=== PATIENT | male | born 1940 | race African-American/Black ===

== ENCOUNTER 2017-09-20 12:32 | Inpatient (IN) | payer MEDICARE, SELFPAY ==
[2017-09-20] VITALS (18 sets, daily range): BP systolic 93–147; BP diastolic 62–99; PULSE 78–95; RESP 13–19; TEMP 36.4–36.6; O2SAT 96–100; BMI 25.3; BMI 24.6
--- NOTE | 2017-09-20 12:45 | RAD_ITS ---
STUDY: X-RAY CHEST REASON FOR EXAM: Male, 77 years old. Shortness of breath with confusion. TECHNIQUE: AP upright portable view. COMPARISON: 11/30/2016. FINDINGS: New right IJ approach [id number] tip is in the SVC but it is retracted superiorly. No pneumothorax. Pulmonary hyperinflation with flattening of the hemidiaphragms are suggestive of mild COPD. No confluent infiltrates. No suspicious pulmonary nodules. There is no demonstrated pleural abnormality. Normal size heart. Normal mediastinum and malick. Normal visualized pulmonary arteries. Normal visualized aortic arch and descending thoracic aorta. Right lateral marginal spurs along the thoracic spine are unchanged. 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 The clavicles and rib cage remain normal. There is no demonstrated abnormality of the visualized soft tissue structures of the upper abdomen. RAD/Chest 1 View (Portable) IMPRESSION: 1. No acute cardiopulmonary pathology. 2. Interval placement of right IJ approach [id number] which has retracted cephalad. The tip is still in the SVC but close to the right subclavian vein. Electronically Signed: Vic Tavares MD at 13:36 EDT , Service support ,
--- NOTE | 2017-09-20 12:45 | CT_ITS ---
STUDY: CT BRAIN WITHOUT CONTRAST REASON FOR EXAM: Male, 77 years old. Confusion. Elevated glucose. RADIATION DOSAGE (If Supplied By Facility): CTDIvol = ( 44.99 ) mGy, DLP = ( 745.49 ) mGycm TECHNIQUE: Transaxial CT imaging of the brain was performed without administration of intravenous contrast material. Coronal and sagittal reconstructions were performed. Individualized dose optimization techniques were used for this CT. COMPARISON: None. FINDINGS: Normal soft tissue structures. Normal calvarium. Normal size ventricles and extra-axial spaces for the patient's age. Normal white matter tracts of the cerebral hemispheres. Normal basal ganglia and thalami. Normal brainstem. Normal cerebellum. There is no intracranial hemorrhage. There are no findings of an acute ischemic infarction. Normal visualized paranasal sinuses. CT/Brain/Head without Contrast IMPRESSION: Normal unenhanced CT scan of the brain. Electronically Signed: Vic Tavares MD at 13:39 EDT , Service support ,
--- NOTE | 2017-09-20 12:45 | EKG12_ITS ---
Test Reason : DYSRHYTHMIAA Blood Pressure : / mmHG Vent. Rate : 096 BPM Atrial Rate : 096 BPM P-R Int : 106 ms QRS Dur : 084 ms QT Int : 352 ms P-R-T Axes : 060 062 016 degrees QTc Int : 444 ms Sinus rhythm with short [place] Otherwise normal ECG Confirmed by VERONICA MUÑOZ, CHERIE ([id number]), image editor VIOLETA AVALOS ([id number]) on 09/22/2017 2:08:52 PM Referred By: HEIDI Confirmed By:CHERIE MARTIN MD
--- NOTE | 2017-09-20 12:59 | ED.VISSUMM ---
- ER Visit Summary Date of Service: 09/20/17 Chief Complaint: [] Fatigue and confusion decreased p.o. 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 They report for the last few days she has had decreased p.o. intake he seemed confused and tired yesterday nothing specific, no chest pain fever cough, he woke today was going about his daily activity seemed tired and confused did not recognize his daughter thought she was another relative and he was brought to the hospital, the patient's had no fever no fall no injury no chest or abdominal pain he is resting comfortably in the bed he knows his name he knows he is in the emergency department he does not recognize the city, he recognizes the doctors and the nurses he recognizes his daughter he does not know the date or the time and per the daughter this is about baseline for him he clearly has a dry mouth his blood sugar was found to be 450 on initial eval he has no history of diabetes but his blood sugars have run high in the past, he is neurologically at his baseline currently Physical Examination: [] His vital signs are within normal range she is in no distress again his speech is easy to understand he is oriented as above his neck is supple his lungs sound clear his heart tones are regular he has a port in the right chest but does not wish for us to use it is abdomen soft nontender he is moving all 4 extremities the extremities show no sinus clubbing or edema, again he knows he is in the emergency department he did not recognize the city or the date or the time he recognizes the daughter he recognizes the medical personnel he indicates he was not sick in any way just tired his NIH given that would be about 0 Test Results: [] Emergency Department Course and Treatment: [] Given all of the above a comprehensive evaluations pursued His blood sugars about 800 his gap is 14 trace ketones sodium [address] CT EKG generally unremarkable see those reports, he is received IV fluids IV insulin spoke the hospitalist though by to see him shortly for admission discussed all the above with the family Treatment Plan: [] Disposition: [] Admit stable Impression: [] Diabetes mellitus with hyperosmolar state, AK I, hyponatremia, confusion and fatigue This note was generated with Gameyee[employer]ation software. It may contain incorrect words, spelling, and punctuation that were not noted in review of the chart prior to signing ED Disposition - Plan for ED Patient: Chief Complaint: Confusion Referrals: Care Physician,No Primary [Primary Care Provider] -
[2017-09-20 13:00] LABS: Absolute Lymphocyte Count 1.46 X10^3/ul (0.83-4.51); Absolute Neutrophil Count 2.5 X10^3/uL (2.0-7.7); Basophil# 0.04 X10^3/uL; Basophil% 0.8 % (0-1); Eosinophil# 0.05 X10^3/uL; Hematocrit 42.3 % (40-54); Hemoglobin 14.8 g/dl (13.0-16.5); Lymphocyte # 1.46 X10^3/ul (4.0); Lymphocyte % 30.4 % (19-41); Mean Corpuscular Volume 91.4 fL (80-94); Monocyte# 0.73 X10^3/uL; Monocyte% 15.2 % (0-10); Neutrophil # 2.51 X10^3/uL (2.7-7.7); Neutrophil % 52.4 % (47-70); Platelet Count 135 K/mm3 (150-450); RBC Distribution Width CV 14.1 % (11.6-14.6); RBC Distribution Width SD 46.9 fl (35.1-43.9); Red Blood Count 4.63 M/mm3 (4.6-6.2); White Blood Count 4.8 K/mm3 (4.4-11.0)
[2017-09-20 13:01] LABS: POSITIVE COUNT NO; POSITIVE DIFFERENTIAL NO; POSITIVE MORPHOLOGY NO
--- NOTE | 2017-09-20 13:21 | NURSING ---
NO LW OR POA
--- NOTE | 2017-09-20 13:28 | ED.RN ---
lab called critical of blood sugar 782. dr campbell
[2017-09-20 13:29] LABS: AST(SGOT) 11 U/L (15-37); Alanine Aminotransfer ALT/SGPT 22 U/L (16-61); Albumin, Serum 4.1 g/dL (3.2-5.0); Alkaline Phosphatase 274 U/L (45-117); Anion Gap 14 (5-15); BUN 48 mg/dL (7-18); BUN/Creat Ratio 30.8 RATIO (10-20); Bilirubin, Direct 0.15 mg/dL (0.00-0.30); Calcium,Total 9.9 mg/dL (8.5-10.1); Chloride 93 mmol/L (98-107); Creatinine, Serum 1.56 mg/dL (0.70-1.30); EST Glomerular Filtration Rate 46 mL/min (>60); Est Glom Filt Rate - Afr Amer 56 mL/min (>60); Estimated Creatinine Clearance 39.66 ml/min; Globulin 4.7 g/dL (2.2-4.2); Glucose 780 mg/dL (74-106); Lipase 151 U/L (73-393); Protein, Total 8.8 g/dL (6.4-8.2); Sodium Level 128 mmol/L (136-145)
[2017-09-20 13:53] LABS: Mucous, Urine 0 SEEN /hpf (<or=2+); Red Blood Cells-Urine 0 SEEN /hpf (0-5); White Blood Cells 0 SEEN /hpf (0-5)
[2017-09-20 13:54] LABS: Color, Urine Yellow (Yellow); Glucose, Dipstick 1000 mg/dl (Normal); Ketone-Dipstick 15 mg/dl (Negative); Leukocyte Esterase-Dipstick Negative /ul (Negative); Nitrite-Dipstick Negative (Negative); Occult Blood-Urine 25 /ul (Negative); Protein-Dipstick 30 mg/dl (Negative); Urine Bilirubin Dipstick Negative (Negative); Urine Clarity Clear (Clear); Urine Urobilinogen Normal (Normal)
--- NOTE | 2017-09-20 13:57 | PCM.HP.STD ---
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 Robin, Diabetes mellitus type II (HgbA1c 11/20/16 6.6%) who presents to the [facility] ED on 09/20/17 with decreased oral intake and confusion, worsening over the last 2-3 days with no recent fever, chills, nausea, emesis, dyspnea, cough. In the ED work-up included T 97.9, HR 93, BP 147/99, RR 18, 99% on RA, CBC w/ WBC 4.8, Hgb 14.8, Plts 135 with increased mono% otherwise no marked shift, CMP w/ Na 128, Chl 93, BUN/Cr 48/1.56, glucose 780, AG 14, trop <0.02, small acetone, CXR w/ no acute process, CT Head w/ no acute findings, UA pending. In the ED patient administered 2L NS secondary to immediately concerns of dehydration and with CMP results administered 10 u IV insulin and placed on drip. In the ED upon initial presentation per ED physician, patient orientation intact for person, place, certain staff members, but not date or city. Also, family noting that his BS have been elevated. Past Medical History Past Medical History (Chronic Problems): Chronic Problems Diabetes mellitus (Chronic) Hypertension (Chronic) Psoriasis (Chronic) Gallstone pancreatitis (Chronic) Gallbladder carcinoma (Chronic) Allergies No Known Allergies Allergy (Verified 09/20/17 12:37) Home Medications: Ambulatory Orders Medication Instructions Recorded Aspirin [Aspirin, Baby] 81 mg PO DAILY@0800 11/18/16 Carvedilol [Coreg] 12.5 mg PO BID 11/18/16 Clobetasol Propionate/Emoll 1 applic TP DAILY PRN PRN 11/18/16 [Clobetasol Emollient 0.05% Crm] Lisinopril [Zestril] 20 mg PO DAILY #0 12/01/16 Furosemide [Lasix] 40 mg PO DAILY #30 tablet 12/18/16 Ascorbic Acid [Vitamin C] 500 mg PO DAILY 01/29/17 Ferrous Sulfate [Slow Fe] 140 mg PO DAILY 02/21/17 Hydrocortisone 1% Crm 1 applicatio TOPICAL DAILY PRN PRN 02/21/17 Ketoconazole [Nizoral] 120 ml TP DAILY PRN 02/21/17 Ondansetron [Zofran Odt] 8 mg PO Q8H PRN PRN 02/21/17 Guaifenesin [Mucinex] 600 mg PO BID PRN PRN 03/09/17 Potassium Chloride 10 meq PO DAILY 03/09/17 Senna [Senokot] 1 tablet PO BID PRN PRN 03/09/17 Triamcinolone Acetonide 03/09/17 Polyethylene Glycol 3350 [Miralax] 17 gm PO DAILY #14 packet 03/10/17 Surgical History: - - Cholecystectomy, Port, Skin graft ankle. Psychiatric History: No pertinent psych hx Lives: Spouse/ Significant Other Smoking Status: Former smoker Tobacco Use: Non-smoker Alcohol: None Drugs: None - *Family History Maternal History Items: Heart Disease Paternal History Items: No pertinent history - Father when patient was 2. Review of Systems Constitutional: Reports: Anorexia, Malaise, Weakness, Fatigue. Denies: Chills, Fever, Weight Change HEENT: Denies: Head Aches, Sinus Congestion, Sinus Drainage Cardiovascular: Denies: Chest Pain, Palpitations Respiratory: Denies: Cough, Shortness of breath at rest, Sputum production Gastrointestinal: Reports: Nausea. Denies: Abdominal Pain, Vomiting Genitourinary: Reports: - - Decreased UOP. Denies: Dysuria Musculoskeletal: Denies: Joint Pain, Joint Tenderness Skin: Denies: Rash, Wounds Neurological: Reports: Confusion. Denies: Focal weakness, Numbness, Tingling Psychiatric: Denies: Anxiety, Depression, Homicidal Ideations, Suicidal Ideations Hematologic/ Lymphatic: Reports: Anemia. Denies: Easy Bruising, Easy Bleeding VTE Information - Inpt Only VTE Present on Admission: No VTE Mechan Device Prophylaxis: SCD's VTE Pharm Prophylaxis ordered?: Yes Patient Problems: Active and Suspected Problems BRIELLE (acute kidney injury) (Acute) Hyponatremia (Acute) Hyperglycemia (Acute) Subjective: Seated upright in the ED bed, NAD, fatigued appearing, clinically dry appearing. Objective: Physical Examination: General: awake, alert, oriented to self, place, certain individuals, cooperative, seated upright in the ED bed, NAD, fatigued appearing. Skin: dry, flaking skin, poor skin turgor, no icterus, cyanosis. HEENT: AT/NC, EOMI, PERRLA, dry MM, no carotid bruits or JVD noted. Lungs: Diminished BS bases, mild effort, no rales, ronchi or wheezing. Heart: Mildly tachycardic with regular rhythm; no gallop, rub audible. Abdomen: soft, thin cachectic habitus, NTTP, ND, hypoactive BS, no HSM. Extremities: no cyanosis, clubbing, notably dry skin, poor foot DM hygiene with thickened skin, thickened nails. Neurological: patient awake, alert, oriented as noted; cognitive function decreased, not baseline intact; pupils equally reactive to light and accomodation; cranial nerves II-XII grossly normal, moving all 4 extremities but moderately to severely globally decreased secondary to acute presentation. Psychiatric: affect appears moderately flat, fatigued, no acute evidence of depressive or anxiety feelings. - Physical Exam Vital Signs Temp Pulse Resp BP Pulse Ox 97.9 F 93 18 141/94 H 96 09/20/17 12:34 09/20/17 12:58 09/20/17 12:58 09/20/17 12:58 09/20/17 12:58 Oxygen Delivery Method Room Air Weight: 171 lb 8.314 oz Body Mass Index (BMI) 25.3 Laboratory Tests Past 24 Hrs 09/20/17 09/20/17 09/20/17 12:50 12:50 12:50 WBC 4.8 RBC 4.63 Hgb 14.8 Hct 42.3 MCV 91.4 MCH 32.0 MCHC 35.0 RDW 14.1 RDW Differential 46.9 H Plt Count 135 L MPV 11.0 Immature Gran % (Auto) 0.200 Neut % (Auto) 52.4 Lymph % (Auto) 30.4 Vance % (Auto) 15.2 H Eos % (Auto) 1.0 Baso % (Auto) 0.8 Absolute Neuts (auto) 2.5 Absolute Lymphs (auto) 1.46 Total Counted Not Reportable Sodium 128 L Potassium 5.0 Chloride 93 L Carbon Dioxide 21.0 Anion Gap 14 BUN 48 H Creatinine 1.56 H Estim Creat Clear Calc 39.66 Est GFR (MDRD) Af Amer 56 L Est GFR (MDRD) Non-Af 46 L BUN/Creatinine Ratio 30.8 H Glucose 780 H* Calcium 9.9 Total Bilirubin 0.60 Direct Bilirubin 0.15 AST 11 L ALT 22 Alkaline Phosphatase 274 H Troponin I < 0.02 Total Protein 8.8 H Albumin 4.1 Globulin 4.7 H Lipase 151 Urine Color Urine Clarity Urine pH Ur Specific [place] Urine Protein Urine Glucose (UA) Urine Ketones Urine Occult Blood Urine Nitrite Urine Bilirubin Urine Urobilinogen Ur Leukocyte Esterase Urine RBC Urine WBC Ur Squamous Epith Cells Urine Bacteria Urine Mucus Acetone Level SMALL H 09/20/17 13:45 WBC RBC Hgb Hct MCV MCH MCHC RDW RDW Differential Plt Count MPV Immature Gran % (Auto) Neut % (Auto) Lymph % (Auto) Vance % (Auto) Eos % (Auto) Baso % (Auto) Absolute Neuts (auto) Absolute Lymphs (auto) Total Counted Sodium Potassium Chloride Carbon Dioxide Anion Gap BUN Creatinine Estim Creat Clear Calc Est GFR (MDRD) Af Amer Est GFR (MDRD) Non-Af BUN/Creatinine Ratio Glucose Calcium Total Bilirubin Direct Bilirubin AST ALT Alkaline Phosphatase Troponin I Total Protein Albumin Globulin Lipase Urine Color Pending Urine Clarity Pending Urine pH Pending Ur Specific [place] Pending Urine Protein Pending Urine Glucose (UA) Pending Urine Ketones Pending Urine Occult Blood Pending Urine Nitrite Pending Urine Bilirubin Pending Urine Urobilinogen Pending Ur Leukocyte Esterase Pending Urine RBC Pending Urine WBC Pending Ur Squamous Epith Cells Pending Urine Bacteria Pending Urine Mucus Pending Acetone Level Assessment/Plan Active and Suspected Problems BRIELLE (acute kidney injury) (Acute) Hyponatremia (Acute) Hyperglycemia (Acute) The patient is a 77 y/o M w/ PMHx: HTN, Psoriasis, 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 Robin, Diabetes mellitus type II (HgbA1c 11/20/16 6.6%) who presents to the [facility] ED on 09/20/17 with decreased oral intake and confusion, worsening over the last 2-3 days with no recent fever, chills, nausea, emesis, dyspnea, cough. (1) Hyperglycemia w/ Diabetes Mellitus type II, possible Hyperosmolar Hyperglycemic State: Admission glucose 780, AG normal, small acetone level in the setting of dehydration w/ Na 128 and BRIELLE, UA pending, previously was on ISS and levemir w/ last noted HgbA1c 11/20/16 6.6%. Given IV insulin 10 u x 1 in the ED. Will admit to the ICU, continue to aggressively hydrate, obtain Serum Osm administer IV insulin and continue on insulin drip, check serial K+, glucose w/ IVF changes pending these levels, serial chemistry, obtain mag, phos daily w/ repletion as needed, transition to home SC regimen once improved, nutrition consultation. HgBA1c pending. (2) Acute kidney injury: Secondary to poor intake, nephrotoxic regimen. Admission BUN/Cr 48/1.56, prior baseline creatinine noted to be 0.6. Will hydrate, hold nephrotoxic medications and serial chemistries as noted. If not improving further obtain renal US. (3) Hyponatremia, Hypovolemic: Secondary to poor intake w/ concurrent BRIELLE as noted, admission N1 128, baseline normal range, continue hydration, repeat BMP in AM. (4) Encephalopathy, Multifactorial: Secondary to #1, #2, #3, CT Head w/ no acute findings, awaiting UA, CXR without acute process. (5) Hx Gallstone Pancreatitis w/ Gallbladder Carcinoma: Noted 2017 Dx, was associated w/ anasarca, s/p cholecystectomy and chemotherapy with completion last round~ 2 weeks prior following silva/ Dr. Robin, mag and phos pending as noted, supplement as needed. (6) Fe Deficiency Anemia: Admission Hgb 14.8, stable, continue Fe supplementation. (7) Hypertension: Maintain on home regimen coreg, holding lisinopril and lasix given BRIELLE, dehydartion, BP parameters, PRN hydralazine. (8) Chronic Constipation: Maintain on home bowel regimen. (9) Psoriasis: Continue home home topical regimens. (10) Severe Protein-Calorie Malnutrition: Evidenced per habitus, muscle and fat loss, nutrition consulted. (11) DVT Prophylaxis: SCDs, heparin. (12) CODE status: Discussed CODE status including difference between FULL code, DNR-CCA and DNR-CC status. Following discussions about the differences in these status, family including , son and daughter confirmed LW w/ DNR-CCA, no intubation status. Advanced Care Planning Face to Face Time: 17 minutes. Code Visit Inpatient E&M: 07927 Init Hosp L3 Procedures: 13004 Advncd Care Plan 30 Min
--- NOTE | 2017-09-20 14:00 | HP.PCM_ITS ---
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 Robin, Diabetes mellitus type II (HgbA1c 11/20/16 6.6%) who presents to the [facility] ED on with decreased oral intake and confusion, worsening over the last 2-3 days with no recent fever, chills, nausea, emesis, dyspnea, cough. In the ED work-up included T 97.9, HR 93, BP 147/99, RR 18, 99% on RA, CBC w/ WBC 4.8, Hgb 14.8, Plts 135 with increased mono% otherwise no marked shift, CMP w/ Na 128 , Chl 93, BUN/Cr 48/1.56, glucose 780, AG 14, trop <0.02, small acetone, CXR w/ no acute process, CT Head w/ no acute findings, UA pending. In the ED patient administered 2L NS secondary to immediately concerns of dehydration and with CMP results administered 10 u IV insulin and placed on drip. In the ED upon initial presentation per ED physician, patient orientation intact for person, place, certain staff members, but not date or city. Also, family noting that his BS have been elevated. Past Medical History Past Medical History (Chronic Problems): Chronic Problems Diabetes mellitus (Chronic) Hypertension (Chronic) Psoriasis (Chronic) Gallstone pancreatitis (Chronic) Gallbladder carcinoma (Chronic) Allergies No Known Allergies Allergy (Verified 09/20/17 12:37) Home Medications: Ambulatory Orders Medication Instructions Recorded Aspirin [Aspirin, Baby] 81 mg PO DAILY@0800 11/18/16 Carvedilol [Coreg] 12.5 mg PO BID 11/18/16 Clobetasol Propionate/Emoll 1 applic TP DAILY PRN PRN 11/18/16 [Clobetasol Emollient 0.05% Crm] Lisinopril [Zestril] 20 mg PO DAILY #0 12/01/16 Furosemide [Lasix] 40 mg PO DAILY #30 tablet 12/18/16 Ascorbic Acid [Vitamin C] 500 mg PO DAILY 01/29/17 Ferrous Sulfate [Slow Fe] 140 mg PO DAILY 02/21/17 Hydrocortisone 1% Crm 1 applicatio TOPICAL DAILY PRN PRN 02/21/17 Ketoconazole [Nizoral] 120 ml TP DAILY PRN 02/21/17 Ondansetron [Zofran Odt] 8 mg PO Q8H PRN PRN 02/21/17 Guaifenesin [Mucinex] 600 mg PO BID PRN PRN 03/09/17 Potassium Chloride 10 meq PO DAILY 03/09/17 Senna [Senokot] 1 tablet PO BID PRN PRN 03/09/17 Triamcinolone Acetonide 03/09/17 Polyethylene Glycol 3350 [Miralax] 17 gm PO DAILY #14 packet 03/10/17 Surgical History: - - Cholecystectomy, Port, Skin graft ankle. Psychiatric History: No pertinent psych hx Lives: Spouse/ Significant Other Smoking Status: Former smoker Tobacco Use: Non-smoker Alcohol: None Drugs: None - *Family History Maternal History Items: Heart Disease Paternal History Items: No pertinent history - Father when patient was 2. Review of Systems Constitutional: Reports: Anorexia, Malaise, Weakness, Fatigue. Denies: Chills, Fever, Weight Change HEENT: Denies: Head Aches, Sinus Congestion, Sinus Drainage Cardiovascular: Denies: Chest Pain, Palpitations Respiratory: Denies: Cough, Shortness of breath at rest, Sputum production Gastrointestinal: Reports: Nausea. Denies: Abdominal Pain, Vomiting Genitourinary: Reports: - - Decreased UOP. Denies: Dysuria Musculoskeletal: Denies: Joint Pain, Joint Tenderness Skin: Denies: Rash, Wounds Neurological: Reports: Confusion. Denies: Focal weakness, Numbness, Tingling Psychiatric: Denies: Anxiety, Depression, Homicidal Ideations, Suicidal Ideations Hematologic/ Lymphatic: Reports: Anemia. Denies: Easy Bruising, Easy Bleeding VTE Information - Inpt Only VTE Present on Admission: No VTE Mechan Device Prophylaxis: SCD's VTE Pharm Prophylaxis ordered?: Yes Patient Problems: Active and Suspected Problems BRIELLE (acute kidney injury) (Acute) Hyponatremia (Acute) Hyperglycemia (Acute) Subjective: Seated upright in the ED bed, NAD, fatigued appearing, clinically dry appearing. Objective: Physical Examination: General: awake, alert, oriented to self, place, certain individuals, cooperative , seated upright in the ED bed, NAD, fatigued appearing. Skin: dry, flaking skin, poor skin turgor, no icterus, cyanosis. HEENT: AT/NC, EOMI, PERRLA, dry MM, no carotid bruits or JVD noted. Lungs: Diminished BS bases, mild effort, no rales, ronchi or wheezing. Heart: Mildly tachycardic with regular rhythm; no gallop, rub audible. Abdomen: soft, thin cachectic habitus, NTTP, ND, hypoactive BS, no HSM. Extremities: no cyanosis, clubbing, notably dry skin, poor foot DM hygiene with thickened skin, thickened nails. Neurological: patient awake, alert, oriented as noted; cognitive function decreased, not baseline intact; pupils equally reactive to light and accomodation; cranial nerves II-XII grossly normal, moving all 4 extremities but moderately to severely globally decreased secondary to acute presentation. Psychiatric: affect appears moderately flat, fatigued, no acute evidence of depressive or anxiety feelings. - Physical Exam Vital Signs Temp Pulse Resp BP Pulse Ox 97.9 F 93 18 141/94 H 96 09/20/17 12:34 09/20/17 12:58 09/20/17 12:58 09/20/17 12:58 09/20/17 12:58 Oxygen Delivery Method Room Air Weight: 171 lb 8.314 oz Body Mass Index (BMI) 25.3 Laboratory Tests Past 24 Hrs 09/20/17 09/20/17 09/20/17 12:50 12:50 12:50 WBC 4.8 RBC 4.63 Hgb 14.8 Hct 42.3 MCV 91.4 MCH 32.0 MCHC 35.0 RDW 14.1 RDW Differential 46.9 H Plt Count 135 L MPV 11.0 Immature Gran % (Auto) 0.200 Neut % (Auto) 52.4 Lymph % (Auto) 30.4 [place] % (Auto) 15.2 H Eos % (Auto) 1.0 Baso % (Auto) 0.8 Absolute Neuts (auto) 2.5 Absolute Lymphs (auto) 1.46 Total Counted Not Reportable Sodium 128 L Potassium 5.0 Chloride 93 L Carbon Dioxide 21.0 Anion Gap 14 BUN 48 H Creatinine 1.56 H Estim Creat Clear Calc 39.66 Est GFR (MDRD) Af Amer 56 L Est GFR (MDRD) Non-Af 46 L BUN/Creatinine Ratio 30.8 H Glucose 780 H* Calcium 9.9 Total Bilirubin 0.60 Direct Bilirubin 0.15 AST 11 L ALT 22 Alkaline Phosphatase 274 H Troponin I < 0.02 Total Protein 8.8 H Albumin 4.1 Globulin 4.7 H Lipase 151 Urine Color Urine Clarity Urine pH Ur Specific [place] Urine Protein Urine Glucose (UA) Urine Ketones Urine Occult Blood Urine Nitrite Urine Bilirubin Urine Urobilinogen Ur Leukocyte Esterase Urine RBC Urine WBC Ur Squamous Epith Cells Urine Bacteria Urine Mucus Acetone Level SMALL H 09/20/17 13:45 WBC RBC Hgb Hct MCV MCH MCHC RDW RDW Differential Plt Count MPV Immature Gran % (Auto) Neut % (Auto) Lymph % (Auto) [place] % (Auto) Eos % (Auto) Baso % (Auto) Absolute Neuts (auto) Absolute Lymphs (auto) Total Counted Sodium Potassium Chloride Carbon Dioxide Anion Gap BUN Creatinine Estim Creat Clear Calc Est GFR (MDRD) Af Amer Est GFR (MDRD) Non-Af BUN/Creatinine Ratio Glucose Calcium Total Bilirubin Direct Bilirubin AST ALT Alkaline Phosphatase Troponin I Total Protein Albumin Globulin Lipase Urine Color Pending Urine Clarity Pending Urine pH Pending Ur Specific [place] Pending Urine Protein Pending Urine Glucose (UA) Pending Urine Ketones Pending Urine Occult Blood Pending Urine Nitrite Pending Urine Bilirubin Pending Urine Urobilinogen Pending Ur Leukocyte Esterase Pending Urine RBC Pending Urine WBC Pending Ur Squamous Epith Cells Pending Urine Bacteria Pending Urine Mucus Pending Acetone Level Assessment/Plan Active and Suspected Problems BRIELLE (acute kidney injury) (Acute) Hyponatremia (Acute) Hyperglycemia (Acute) The patient is a 77 y/o M w/ PMHx: HTN, Psoriasis, 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 Robin, Diabetes mellitus type II (HgbA1c 11/20/16 6.6%) who presents to the [facility] ED on with decreased oral intake and confusion, worsening over the last 2-3 days with no recent fever, chills, nausea, emesis, dyspnea, cough. (1) Hyperglycemia w/ Diabetes Mellitus type II, possible Hyperosmolar Hyperglycemic State: Admission glucose 780, AG normal, small acetone level in the setting of dehydration w/ Na 128 and BRIELLE, UA pending, previously was on ISS and levemir w/ last noted HgbA1c 11/20/16 6.6%. Given IV insulin 10 u x 1 in the ED. Will admit to the ICU, continue to aggressively hydrate, obtain Serum Osm administer IV insulin and continue on insulin drip, check serial K+, glucose w/ IVF changes pending these levels, serial chemistry, obtain mag, phos daily w/ repletion as needed, transition to home SC regimen once improved, nutrition consultation. HgBA1c pending. (2) Acute kidney injury: Secondary to poor intake, nephrotoxic regimen. Admission BUN/Cr 48/1.56, prior baseline creatinine noted to be 0.6. Will hydrate, hold nephrotoxic medications and serial chemistries as noted. If not improving further obtain renal US. (3) Hyponatremia, Hypovolemic: Secondary to poor intake w/ concurrent BRIELLE as noted, admission N1 128, baseline normal range, continue hydration, repeat BMP in AM. (4) Encephalopathy, Multifactorial: Secondary to #1, #2, #3, CT Head w/ no acute findings, awaiting UA, CXR without acute process. (5) Hx Gallstone Pancreatitis w/ Gallbladder Carcinoma: Noted 2017 Dx, was associated w/ anasarca, s/p cholecystectomy and chemotherapy with completion last round~ 2 weeks prior following silva/ Dr. Robin, mag and phos pending as noted , supplement as needed. (6) Fe Deficiency Anemia: Admission Hgb 14.8, stable, continue Fe supplementation. (7) Hypertension: Maintain on home regimen coreg, holding lisinopril and lasix given BRIELLE, dehydartion, BP parameters, PRN hydralazine. (8) Chronic Constipation: Maintain on home bowel regimen. (9) Psoriasis: Continue home home topical regimens. (10) Severe Protein-Calorie Malnutrition: Evidenced per habitus, muscle and fat loss, nutrition consulted. (11) DVT Prophylaxis: SCDs, heparin. (12) CODE status: Discussed CODE status including difference between FULL code, DNR-CCA and DNR-CC status. Following discussions about the differences in these status, family including , son and daughter confirmed LW w/ DNR-CCA, no intubation status. Advanced Care Planning Face to Face Time: 17 minutes. Code Visit Inpatient E&M: 76868 Init Hosp L3 Procedures: 28725 Advncd Care Plan 30 Min
[2017-09-20 14:02] LABS: Bacteria RARE /hpf (None Seen); Squamous Epithelial Cells - UA 0-5 SEEN /hpf (0-5)
[2017-09-20] MEDS: 0.9% Normal Saline 1,000 ML 150 ML IV ×3 (14:10→22:16)
--- NOTE | 2017-09-20 14:17 | NURSING ---
ICU HHS, BRIELLE, HYPONATERMIA, ENCEPHALOPATHY WHITE
[2017-09-20 14:36] LABS: Bedside Glucose > 500 mg/dL (70-110)
--- NOTE | 2017-09-20 14:48 | ED.RN ---
family and pt unable to verify home medication list.
[2017-09-20 15:30] LABS: Bedside Glucose 396 mg/dL (70-110)
[2017-09-20 17:16] LABS: Bedside Glucose 256 mg/dL (70-110)
[2017-09-20 17:16] LABS: Bedside Glucose 353 mg/dL (70-110)
[2017-09-20 17:21] LABS: Osmolality, Serum 318 mOsm/KG (280-301)
[2017-09-20 17:26] LABS: Anion Gap 10 (5-15); BUN 40 mg/dL (7-18); BUN/Creat Ratio 31.5 RATIO (10-20); Calcium,Total 9.2 mg/dL (8.5-10.1); Chloride 106 mmol/L (98-107); Creatinine, Serum 1.27 mg/dL (0.70-1.30); EST Glomerular Filtration Rate 58 mL/min (>60); Est Glom Filt Rate - Afr Amer 71 mL/min (>60); Estimated Creatinine Clearance 48.71 ml/min; Glucose 296 mg/dL (74-106); Magnesium 2.7 mg/dL (1.6-2.6); Phosphorus 1.6 mg/dL (2.5-4.9); Potassium 4.4 mmol/L (3.5-5.1); Sodium Level 141 mmol/L (136-145)
[2017-09-20] MEDS: NYSTATIN 500,000 UNIT/5 ML UDC 500000 UNIT PO ×2 (17:54→21:15)
[2017-09-20 18:02] LABS: Hemoglobin A1c 11.8 % (4.2-6.3)
--- NOTE | 2017-09-20 18:05 | NURSING ---
attempted to call [facility] to obtain pt home med list. pharmacy closed at this time.
[2017-09-20 18:11] LABS: Bedside Glucose 253 mg/dL (70-110)
[2017-09-20 18:25] LABS: M R Staph aureus DNA By PCR Negative (Negative); Probe Check PASS; Specimen Processing Control PASS
--- NOTE | 2017-09-20 18:55 | NURSING ---
pt has rt chest port, not accessed at this time. pt states Dr. cortez told him port could not be used. Will have to clarify
[2017-09-20 19:31] LABS: Bedside Glucose 268 mg/dL (70-110)
[2017-09-20] MEDS: Carvedilol 12.5 MG Tablet PO (21:15)
[2017-09-20] MEDS: Heparin Injection (Vial) 5,000 UNIT/ML VIAL 5000 UNIT SC (21:15)
[2017-09-20] MEDS: Pantoprazole Sodium 20 MG Tablet PO (21:16)
[2017-09-20 23:10] LABS: Bedside Glucose 225 mg/dL (70-110)
[2017-09-20 23:10] LABS: Bedside Glucose 189 mg/dL (70-110)
[2017-09-20 23:10] LABS: Bedside Glucose 237 mg/dL (70-110)
[2017-09-21] VITALS (21 sets, daily range): BP systolic 89–146; BP diastolic 60–88; PULSE 62–93; RESP 13–18; TEMP 36.4–37.1; O2SAT 96–100
[2017-09-21 00:43] LABS: Anion Gap 6 (5-15); BUN 30 mg/dL (7-18); BUN/Creat Ratio 32.7 RATIO (10-20); Calcium,Total 8.6 mg/dL (8.5-10.1); Chloride 112 mmol/L (98-107); Creatinine, Serum 0.92 mg/dL (0.70-1.30); EST Glomerular Filtration Rate 85 mL/min (>60); Est Glom Filt Rate - Afr Amer 103 mL/min (>60); Estimated Creatinine Clearance 67.24 ml/min; Glucose 169 mg/dL (74-106); Potassium 3.9 mmol/L (3.5-5.1); Sodium Level 144 mmol/L (136-145)
[2017-09-21 01:16] LABS: Bedside Glucose 231 mg/dL (70-110)
[2017-09-21 01:16] LABS: Bedside Glucose 182 mg/dL (70-110)
[2017-09-21 03:36] LABS: Bedside Glucose 160 mg/dL (70-110)
[2017-09-21 03:36] LABS: Bedside Glucose 153 mg/dL (70-110)
[2017-09-21 04:56] LABS: Absolute Lymphocyte Count 1.67 X10^3/ul (0.83-4.51); Absolute Neutrophil Count 1.6 X10^3/uL (2.0-7.7); Basophil# 0.02 X10^3/uL; Basophil% 0.5 % (0-1); Eosinophil# 0.12 X10^3/uL; Hematocrit 32.7 % (40-54); Hemoglobin 11.6 g/dl (13.0-16.5); Lymphocyte # 1.67 X10^3/ul (4.0); Lymphocyte % 41.5 % (19-41); Mean Corp Hgb Conc 35.5 g/gl (32-36); Mean Corpuscular Hgb 32.7 pg (27.0-32.0); Mean Corpuscular Volume 92.1 fL (80-94); Mean Platelet Vol. 10.5 fl (6.2-12.0); Monocyte# 0.61 X10^3/uL; Monocyte% 15.2 % (0-10); Neutrophil # 1.59 X10^3/uL (2.7-7.7); Neutrophil % 39.6 % (47-70); Platelet Count 123 K/mm3 (150-450); RBC Distribution Width CV 14.1 % (11.6-14.6); Red Blood Count 3.55 M/mm3 (4.6-6.2)
[2017-09-21 04:59] LABS: POSITIVE COUNT NO; POSITIVE DIFFERENTIAL NO; POSITIVE MORPHOLOGY NO
[2017-09-21 05:18] LABS: Anion Gap 6 (5-15); BUN 28 mg/dL (7-18); BUN/Creat Ratio 33.1 RATIO (10-20); Calcium,Total 8.5 mg/dL (8.5-10.1); Chloride 112 mmol/L (98-107); Creatinine, Serum 0.84 mg/dL (0.70-1.30); EST Glomerular Filtration Rate 94 mL/min (>60); Est Glom Filt Rate - Afr Amer 113 mL/min (>60); Estimated Creatinine Clearance 73.65 ml/min; Glucose 196 mg/dL (74-106); Potassium 3.8 mmol/L (3.5-5.1); Sodium Level 144 mmol/L (136-145)
[2017-09-21 05:41] LABS: Bedside Glucose 204 mg/dL (70-110)
[2017-09-21 05:41] LABS: Bedside Glucose 195 mg/dL (70-110)
[2017-09-21] MEDS: Heparin Injection (Vial) 5,000 UNIT/ML VIAL 5000 UNIT SC ×3 (05:51→21:29)
--- NOTE | 2017-09-21 06:56 | PCM.CON.CC ---
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 use Diabetes mellitus complication status: with unspecified complications Qualified Code(s): E11.8 - Type 2 diabetes mellitus with unspecified complications; Z79.4 - ocean transportation intermediary (current) use of insulin (5) Protein malnutrition Status: Acute (6) Hypertension Status: Chronic Qualifiers: Hypertension type: essential hypertension Qualified Code(s): I10 - Essential (primary) hypertension (7) Psoriasis Status: Chronic (8) Gallbladder carcinoma Status: Chronic Reason for Consult Date of Consultation: 09/21/17 Reason for Consultation: Hyperglycemia History of Present Illness: The patient is a 77 year old M, with past medical history listed below, who presented to [facility] on 09/20/2017 secondary to decreased oral intake and confusion worsening over the last 2-3 days. Patient had no subjective changes reported by family, but ER workup showed significant hyperglycemia with elevation of baseline creatinine. Patient was also noted to be leukopenic, but is currently being treated for gallbladder carcinoma and completed last round of chemotherapy approximately [address] Robin. In the emergency room, patient was given 2 L of normal saline and 10 units of insulin. Patient was placed on insulin drip and transported to the intensive care unit for further monitoring. While in the intensive care unit, patient has had highly variable insulin requirements. Patient has had relatively stable insulin drip at 5 U/h over the last couple hours. Patient states that he feels subjectively improved compared to previous. Did discuss with patient's daughter at the bedside. Patient has been told for quite some time that his sugars are elevated, but no one actually putting him on medications. Reportedly, someone at [facility] tried to place the patient on metformin, which he did not tolerate. Per patient's family, patient has not had any fevers, chills, nausea, vomiting or diarrhea. Patient is continuing to report some anorexia. Review of systems is somewhat complicated and unclear accuracy. Patient states that oncology states that no one should be using his port, but is unable to provide any details as to whether it is nonfunctioning or if there is been complications with infection in the past. Unable to verify medication list at this time. Past Medical History Past Medical History (Chronic Problems): Chronic Problems Diabetes mellitus (Chronic) Hypertension (Chronic) Psoriasis (Chronic) Gallstone pancreatitis (Chronic) Gallbladder carcinoma (Chronic) Allergies No Known Allergies Allergy (Verified 09/20/17 12:37) Home Medications: Ambulatory Orders Medication Instructions Recorded Aspirin [Aspirin, Baby] 81 mg PO DAILY@0800 11/18/16 Carvedilol [Coreg] 12.5 mg PO BID 11/18/16 Clobetasol Propionate/Emoll 1 applic TP DAILY PRN PRN 11/18/16 [Clobetasol Emollient 0.05% Crm] Lisinopril [Zestril] 20 mg PO DAILY #0 12/01/16 Furosemide [Lasix] 40 mg PO DAILY #30 tablet 12/18/16 Ascorbic Acid [Vitamin C] 500 mg PO DAILY 01/29/17 Ferrous Sulfate [Slow Fe] 140 mg PO DAILY 02/21/17 Hydrocortisone 1% Crm 1 applicatio TOPICAL DAILY PRN PRN 02/21/17 Ketoconazole [Nizoral] 120 ml TP DAILY PRN 02/21/17 Ondansetron [Zofran Odt] 8 mg PO Q8H PRN PRN 02/21/17 Guaifenesin [Mucinex] 600 mg PO BID PRN PRN 03/09/17 Potassium Chloride 10 meq PO DAILY 03/09/17 Senna [Senokot] 1 tablet PO BID PRN PRN 03/09/17 Triamcinolone Acetonide 03/09/17 Polyethylene Glycol 3350 [Miralax] 17 gm PO DAILY #14 packet 03/10/17 Surgical History: - - Cholecystectomy, Port, Skin graft ankle. Psychiatric History: No pertinent psych hx Lives: Spouse/ Significant Other Smoking Status: Former smoker Tobacco Use: Non-smoker Alcohol: None Drugs: None - *Family History Maternal History Items: Heart Disease Paternal History Items: No pertinent history - Father when patient was 2. Review of Systems Unable to obtain accurate/complete ROS d/t: See HPI, unreliable Patient Problems: Active and Suspected Problems BRIELLE (acute kidney injury) (Acute) Hyponatremia (Acute) Hyperglycemia (Acute) Objective: Brain CT showed no acute findings. - Physical Exam General: Alert, Cooperative, No apparent distress, Confused, - - Appears stated age. HEENT: Atraumatic, PERRLA, EOMI, Normocephalic, - - No scleral icterus or injection. Oral: Moist Mucosa, No Gingival or Mucosal Lesions/ Ulcerations Neck: Supple, No JVD, No Nodes, Trachea Midline Lungs: Clear to auscultation, No rhonchi, No wheeze, No rales, - - Symmetric expansion. No dullness to percussion. Cardiovascular: Regular rate, Regular Rhythm, Normal S1, Normal S2, No murmurs, No rub noted, No Gallop, - - Port noted in right chest. Abdomen: Bowel Sounds Present, Soft, Non Tender, Non-Distended Extremities: No clubbing, No cyanosis, No edema, - - Thickened skin hands Skin: No rashes, No breakdown, - - No erythema or fluctuance noted over port site. Thickened skin over the hands. Musculoskeletal: No Tenderness to Palpation of Joints or Extremities Lymphatic: No Cervical, Supraclavicular, or Inguinal Adenopathy Neurological: Cranial nerves II-XII grossly intact, Neuro grossly intact, Motor Exam 5/5 strength throughout Psych/Mental Status: Appropriate, Flat Affect Vital Signs Temp Pulse Resp BP Pulse Ox 36.4 C L 68 14 111/73 98 09/21/17 04:00 09/21/17 06:00 09/21/17 06:00 09/21/17 06:00 09/21/17 06:00 Oxygen Delivery Method Room Air Weight: 75.6 kg Body Mass Index (BMI) 24.6 Finger Stick Blood Glucose 396 Intake and Output for Last 24 Hours 09/19/17 09/20/17 09/21/17 23:59 23:59 23:59 Intake Total 375 / 375 1075 / 1075 Output Total 200 / 200 Balance 375 / 375 875 / 875 Laboratory Tests Past 24 Hrs 09/20/17 09/20/17 09/20/17 16:00 16:55 16:55 WBC RBC Hgb Hct MCV MCH MCHC RDW RDW Differential Plt Count MPV Immature Gran % (Auto) Neut % (Auto) Lymph % (Auto) [place] % (Auto) Eos % (Auto) Baso % (Auto) Absolute Neuts (auto) Absolute Lymphs (auto) Total Counted Sodium 141 Potassium 4.4 Chloride 106 Carbon Dioxide 25.0 Anion Gap 10 BUN 40 H Creatinine 1.27 Estim Creat Clear Calc 48.71 Est GFR (MDRD) Af Amer 71 Est GFR (MDRD) Non-Af 58 L BUN/Creatinine Ratio 31.5 H Glucose 296 H Serum Osmolality 318 H Calcium 9.2 Phosphorus 1.6 L Magnesium 2.7 H MRSA (PCR) Negative 09/21/17 09/21/17 09/21/17 00:12 04:45 04:45 WBC 4.0 L RBC 3.55 L Hgb 11.6 L Hct 32.7 L MCV 92.1 MCH 32.7 H MCHC 35.5 RDW 14.1 RDW Differential 46.0 H Plt Count 123 L MPV 10.5 Immature Gran % (Auto) 0.200 Neut % (Auto) 39.6 L Lymph % (Auto) 41.5 H [place] % (Auto) 15.2 H Eos % (Auto) 3.0 Baso % (Auto) 0.5 Absolute Neuts (auto) 1.6 L Absolute Lymphs (auto) 1.67 Total Counted Not Reportable Sodium 144 144 Potassium 3.9 3.8 Chloride 112 H 112 H Carbon Dioxide 26.0 26.0 Anion Gap 6 6 BUN 30 H 28 H Creatinine 0.92 0.84 Estim Creat Clear Calc 67.24 73.65 Est GFR (MDRD) Af Amer 103 113 Est GFR (MDRD) Non-Af 85 94 BUN/Creatinine Ratio 32.7 H 33.1 H Glucose 169 H 196 H Serum Osmolality Calcium 8.6 8.5 Phosphorus Magnesium MRSA (PCR) POC Glucose 09/21/17 09/21/17 09/21/17 04:44 03:35 02:32 POC Glucose 204 H 195 H 160 H 09/21/17 09/21/17 09/20/17 01:33 00:12 23:10 POC Glucose 153 H 231 H 182 H 09/20/17 09/20/17 09/20/17 22:13 21:09 20:18 POC Glucose 189 H 237 H 225 H 09/20/17 09/20/17 09/20/17 19:16 18:02 17:06 POC Glucose 268 H 253 H 256 H 09/20/17 09/20/17 09/20/17 16:03 15:22 14:28 POC Glucose 353 H 396 H > 500 H* Clinical Impression(s) from Imaging Studies Brain CT 09/20/17 12:45 IMPRESSION: Normal unenhanced CT scan of the brain. Electronically Signed: Vic Tavares MD at 13:39 EDT , Service support , Chest X-Ray 09/20/17 12:45 IMPRESSION: 1. No acute cardiopulmonary pathology. 2. Interval placement of right IJ approach [id number] which has retracted cephalad. The tip is still in the SVC but close to the right subclavian vein. Electronically Signed: Vic Tavares MD at 13:36 EDT , Service support , Assessment/Plan Active and Suspected Problems BRIELLE (acute kidney injury) (Acute) Hyponatremia (Acute) Hyperglycemia (Acute) RECOMMENDATIONS: 1. Transition to subcutaneous insulin 2. Monitor clinically off of antibiotics 3. Continue to monitor renal function 4. Clear okay to leave the intensive care unit if tolerates p.o. IMPRESSIONS: 1. Type 2 diabetes mellitus with hyperosmolar hyperglycemic state Patient was significantly elevated blood sugars on presentation and a hemoglobin A1c greater than 8 indicating new onset diabetes mellitus. It is unclear if this is truly new onset versus not being addressed previously. Will attempt to give patient long-acting insulin and monitor p.o. intake. Patient is not a very good historian at this time. Patient did not have any anion gap on presentation. Unclear if this is related to chemotherapy as patient is unable to provide any history in that regard, other than the fact that he completed chemotherapy 2 weeks ago. It is doubtful that this would be related to steroid administration, but last hemoglobin A1c in October 2016 was 6.6% 2. Pseudohyponatremia Patient presented with a sodium level of 128 initially. However, when corrected for glucose of 780, sodium level is 144.3 mmol/L. Patient has received aggressive hydration with significant improvement in renal function. No intervention is required at this time. 3. Acute kidney injury secondary to dehydration Patient appears to be responding to volume resuscitation. Creatinine is almost back to baseline. Likely okay to continue with hydration until p.o. status is noted. 4. Psoriasis/severe protein calorie malnutrition/iron deficiency anemia/recent chemotherapy/gallbladder cancer/metabolic encephalopathy/advanced age Complicates care, management, recovery and prognosis. Initiate p.o. diet. Patient may benefit from supplements per dietitian recommendations. Code Visit Inpatient E&M: 63784 Init Hosp L3
[2017-09-21 07:05] LABS: Bedside Glucose 192 mg/dL (70-110)
[2017-09-21 07:05] LABS: Bedside Glucose 196 mg/dL (70-110)
--- NOTE | 2017-09-21 07:14 | CON.PCM_ITS ---
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 Patient had no subjective changes reported by family, but ER workup showed significant hyperglycemia with elevation of baseline creatinine. Patient was also noted to be leukopenic, but is currently being treated for gallbladder carcinoma and completed last round of chemotherapy approximately [address] Robin. In the emergency room, patient was given 2 L of normal saline and 10 units of insulin. Patient was placed on insulin drip and transported to the intensive care unit for further monitoring. While in the intensive care unit, patient has had highly variable insulin requirements. Patient has had relatively stable insulin drip at 5 U/h over the last couple hours. Patient states that he feels subjectively improved compared to previous. Did discuss with patient's daughter at the bedside. Patient has been told for quite some time that his sugars are elevated, but no one actually putting him on medications. Reportedly, someone at [facility] tried to place the patient on metformin, which he did not tolerate. Per patient 's family, patient has not had any fevers, chills, nausea, vomiting or diarrhea. Patient is continuing to report some anorexia. Review of systems is somewhat complicated and unclear accuracy. Patient states that oncology states that no one should be using his port, but is unable to provide any details as to whether it is nonfunctioning or if there is been complications with infection in the past. Unable to verify medication list at this time. Past Medical History Past Medical History (Chronic Problems): Chronic Problems Diabetes mellitus (Chronic) Hypertension (Chronic) Psoriasis (Chronic) Gallstone pancreatitis (Chronic) Gallbladder carcinoma (Chronic) Allergies No Known Allergies Allergy (Verified 09/20/17 12:37) Home Medications: Ambulatory Orders Medication Instructions Recorded Aspirin [Aspirin, Baby] 81 mg PO DAILY@0800 11/18/16 Carvedilol [Coreg] 12.5 mg PO BID 11/18/16 Clobetasol Propionate/Emoll 1 applic TP DAILY PRN PRN 11/18/16 [Clobetasol Emollient 0.05% Crm] Lisinopril [Zestril] 20 mg PO DAILY #0 12/01/16 Furosemide [Lasix] 40 mg PO DAILY #30 tablet 12/18/16 Ascorbic Acid [Vitamin C] 500 mg PO DAILY 01/29/17 Ferrous Sulfate [Slow Fe] 140 mg PO DAILY 02/21/17 Hydrocortisone 1% Crm 1 applicatio TOPICAL DAILY PRN PRN 02/21/17 Ketoconazole [Nizoral] 120 ml TP DAILY PRN 02/21/17 Ondansetron [Zofran Odt] 8 mg PO Q8H PRN PRN 02/21/17 Guaifenesin [Mucinex] 600 mg PO BID PRN PRN 03/09/17 Potassium Chloride 10 meq PO DAILY 03/09/17 Senna [Senokot] 1 tablet PO BID PRN PRN 03/09/17 Triamcinolone Acetonide 03/09/17 Polyethylene Glycol 3350 [Miralax] 17 gm PO DAILY #14 packet 03/10/17 Surgical History: - - Cholecystectomy, Port, Skin graft ankle. Psychiatric History: No pertinent psych hx Lives: Spouse/ Significant Other Smoking Status: Former smoker Tobacco Use: Non-smoker Alcohol: None Drugs: None - *Family History Maternal History Items: Heart Disease Paternal History Items: No pertinent history - Father when patient was 2. Review of Systems Unable to obtain accurate/complete ROS d/t: See HPI, unreliable Patient Problems: Active and Suspected Problems BRIELLE (acute kidney injury) (Acute) Hyponatremia (Acute) Hyperglycemia (Acute) Objective: Brain CT showed no acute findings. - Physical Exam General: Alert, Cooperative, No apparent distress, Confused, - - Appears stated age. HEENT: Atraumatic, PERRLA, EOMI, Normocephalic, - - No scleral icterus or injection. Oral: Moist Mucosa, No Gingival or Mucosal Lesions/ Ulcerations Neck: Supple, No JVD, No Nodes, Trachea Midline Lungs: Clear to auscultation, No rhonchi, No wheeze, No rales, - - Symmetric expansion. No dullness to percussion. Cardiovascular: Regular rate, Regular Rhythm, Normal S1, Normal S2, No murmurs, No rub noted, No Gallop, - - Port noted in right chest. Abdomen: Bowel Sounds Present, Soft, Non Tender, Non-Distended Extremities: No clubbing, No cyanosis, No edema, - - Thickened skin hands Skin: No rashes, No breakdown, - - No erythema or fluctuance noted over port site. Thickened skin over the hands. Musculoskeletal: No Tenderness to Palpation of Joints or Extremities Lymphatic: No Cervical, Supraclavicular, or Inguinal Adenopathy Neurological: Cranial nerves II-XII grossly intact, Neuro grossly intact, Motor Exam 5/5 strength throughout Psych/Mental Status: Appropriate, Flat Affect Vital Signs Temp Pulse Resp BP Pulse Ox 36.4 C L 68 14 111/73 98 09/21/17 04:00 09/21/17 06:00 09/21/17 06:00 09/21/17 06:00 09/21/17 06:00 Oxygen Delivery Method Room Air Weight: 75.6 kg Body Mass Index (BMI) 24.6 Finger Stick Blood Glucose 396 Intake and Output for Last 24 Hours 09/19/17 09/20/17 09/21/17 23:59 23:59 23:59 Intake Total 375 / 375 1075 / 1075 Output Total 200 / 200 Balance 375 / 375 875 / 875 Laboratory Tests Past 24 Hrs 09/20/17 09/20/17 09/20/17 16:00 16:55 16:55 WBC RBC Hgb Hct MCV MCH MCHC RDW RDW Differential Plt Count MPV Immature Gran % (Auto) Neut % (Auto) Lymph % (Auto) [place] % (Auto) Eos % (Auto) Baso % (Auto) Absolute Neuts (auto) Absolute Lymphs (auto) Total Counted Sodium 141 Potassium 4.4 Chloride 106 Carbon Dioxide 25.0 Anion Gap 10 BUN 40 H Creatinine 1.27 Estim Creat Clear Calc 48.71 Est GFR (MDRD) Af Amer 71 Est GFR (MDRD) Non-Af 58 L BUN/Creatinine Ratio 31.5 H Glucose 296 H Serum Osmolality 318 H Calcium 9.2 Phosphorus 1.6 L Magnesium 2.7 H MRSA (PCR) Negative 09/21/17 09/21/17 09/21/17 00:12 04:45 04:45 WBC 4.0 L RBC 3.55 L Hgb 11.6 L Hct 32.7 L MCV 92.1 MCH 32.7 H MCHC 35.5 RDW 14.1 RDW Differential 46.0 H Plt Count 123 L MPV 10.5 Immature Gran % (Auto) 0.200 Neut % (Auto) 39.6 L Lymph % (Auto) 41.5 H [place] % (Auto) 15.2 H Eos % (Auto) 3.0 Baso % (Auto) 0.5 Absolute Neuts (auto) 1.6 L Absolute Lymphs (auto) 1.67 Total Counted Not Reportable Sodium 144 144 Potassium 3.9 3.8 Chloride 112 H 112 H Carbon Dioxide 26.0 26.0 Anion Gap 6 6 BUN 30 H 28 H Creatinine 0.92 0.84 Estim Creat Clear Calc 67.24 73.65 Est GFR (MDRD) Af Amer 103 113 Est GFR (MDRD) Non-Af 85 94 BUN/Creatinine Ratio 32.7 H 33.1 H Glucose 169 H 196 H Serum Osmolality Calcium 8.6 8.5 Phosphorus Magnesium MRSA (PCR) POC Glucose 09/21/17 09/21/17 09/21/17 04:44 03:35 02:32 POC Glucose 204 H 195 H 160 H 09/21/17 09/21/17 09/20/17 01:33 00:12 23:10 POC Glucose 153 H 231 H 182 H 09/20/17 09/20/17 09/20/17 22:13 21:09 20:18 POC Glucose 189 H 237 H 225 H 09/20/17 09/20/17 09/20/17 19:16 18:02 17:06 POC Glucose 268 H 253 H 256 H 09/20/17 09/20/17 09/20/17 16:03 15:22 14:28 POC Glucose 353 H 396 H > 500 H* Clinical Impression(s) from Imaging Studies Brain CT 09/20/17 12:45 IMPRESSION: Normal unenhanced CT scan of the brain. Electronically Signed: Vic Tavares MD at 13:39 EDT , Service support , Chest X-Ray 09/20/17 12:45 IMPRESSION: 1. No acute cardiopulmonary pathology. 2. Interval placement of right IJ approach [id number] which has retracted cephalad. The tip is still in the SVC but close to the right subclavian vein. Electronically Signed: Vic Tavares MD at 13:36 EDT , Service support , Assessment/Plan Active and Suspected Problems BRIELLE (acute kidney injury) (Acute) Hyponatremia (Acute) Hyperglycemia (Acute) RECOMMENDATIONS: 1. Transition to subcutaneous insulin 2. Monitor clinically off of antibiotics 3. Continue to monitor renal function 4. Clear okay to leave the intensive care unit if tolerates p.o. IMPRESSIONS: 1. Type 2 diabetes mellitus with hyperosmolar hyperglycemic state Patient was significantly elevated blood sugars on presentation and a hemoglobin A1c greater than 8 indicating new onset diabetes mellitus. It is unclear if this is truly new onset versus not being addressed previously. Will attempt to give patient long-acting insulin and monitor p.o. intake. Patient is not a very good historian at this time. Patient did not have any anion gap on presentation. Unclear if this is related to chemotherapy as patient is unable to provide any history in that regard, other than the fact that he completed chemotherapy 2 weeks ago. It is doubtful that this would be related to steroid administration, but last hemoglobin A1c in October 2016 was 6.6% 2. Pseudohyponatremia Patient presented with a sodium level of 128 initially. However, when corrected for glucose of 780, sodium level is 144.3 mmol/L. Patient has received aggressive hydration with significant improvement in renal function. No intervention is required at this time. 3. Acute kidney injury secondary to dehydration Patient appears to be responding to volume resuscitation. Creatinine is almost back to baseline. Likely okay to continue with hydration until p.o. status is noted. 4. Psoriasis/severe protein calorie malnutrition/iron deficiency anemia/ recent chemotherapy/gallbladder cancer/metabolic encephalopathy/advanced age Complicates care, management, recovery and prognosis. Initiate p.o. diet. Patient may benefit from supplements per dietitian recommendations. Code Visit Inpatient E&M: 32656 Init Hosp L3
--- NOTE | 2017-09-21 07:27 | PCM.PN.HOSP ---
Patient Problems: Active and Suspected Problems BRIELLE (acute kidney injury) (Acute) Hyponatremia (Acute) Hyperglycemia (Acute) Subjective: Patient was seen and examined in the ICU. He is alert, oriented x3. No acute events. Kept on insulin drip. Bridging with Levemir 10 units to be done today. Vitals/I&O's: Vital Signs Temp Pulse Resp BP Pulse Ox 97.6 F L 68 14 111/73 98 09/21/17 04:00 09/21/17 06:00 09/21/17 06:00 09/21/17 06:00 09/21/17 06:00 Oxygen Delivery Method Room Air Weight: 77.7 kg Body Mass Index (BMI) 24.6 Finger Stick Blood Glucose 396 Intake and Output for Last 24 Hours 09/19/17 09/20/17 09/21/17 23:59 23:59 23:59 Intake Total 375 / 375 1935 / 1935 Output Total 600 / 600 Balance 375 / 375 1335 / 1335 General: Alert, Oriented x3, Cooperative, No apparent distress HEENT: Atraumatic, PERRLA, EOMI, Normocephalic Oral: Moist Mucosa Neck: Supple Lungs: Clear to auscultation, Normal air movement Cardiovascular: Regular rate, Regular Rhythm, Normal S1, Normal S2, No murmurs Abdomen: Bowel Sounds Present, Soft, Non Tender, Non-Distended, No Hepato-splenomegaly Extremities: No edema Skin: No rashes Musculoskeletal: No Tenderness to Palpation of Joints or Extremities Lymphatic: No Cervical, Supraclavicular, or Inguinal Adenopathy Neurological: Cranial nerves II-XII grossly intact Psych/Mental Status: Normal Affect, Appropriate Laboratory Results 09/20/17 14:28: POC Glucose > 500 H* 09/20/17 15:22: POC Glucose 396 H 09/20/17 16:00: MRSA (PCR) Negative 09/20/17 16:03: POC Glucose 353 H 09/20/17 16:55: Sodium 141, Potassium 4.4, Chloride 106, Carbon Dioxide 25.0, Anion Gap 10, BUN 40 H, Creatinine 1.27, Estim Creat Clear Calc 48.71, Est GFR (MDRD) Af Amer 71, Est GFR (MDRD) Non-Af 58 L, BUN/Creatinine Ratio 31.5 H, Glucose 296 H, Calcium 9.2, Phosphorus 1.6 L, Magnesium 2.7 H 09/20/17 16:55: Serum Osmolality 318 H 09/20/17 17:06: POC Glucose 256 H 09/20/17 18:02: POC Glucose 253 H 09/20/17 19:16: POC Glucose 268 H 09/20/17 20:18: POC Glucose 225 H 09/20/17 21:09: POC Glucose 237 H 09/20/17 22:13: POC Glucose 189 H 09/20/17 23:10: POC Glucose 182 H 09/21/17 00:12: Sodium 144, Potassium 3.9, Chloride 112 H, Carbon Dioxide 26.0, Anion Gap 6, BUN 30 H, Creatinine 0.92, Estim Creat Clear Calc 67.24, Est GFR (MDRD) Af Amer 103, Est GFR (MDRD) Non-Af 85, BUN/Creatinine Ratio 32.7 H, Glucose 169 H, Calcium 8.6 09/21/17 00:12: POC Glucose 231 H 09/21/17 01:33: POC Glucose 153 H 09/21/17 02:32: POC Glucose 160 H 09/21/17 03:35: POC Glucose 195 H 09/21/17 04:44: POC Glucose 204 H 09/21/17 04:45: Sodium 144, Potassium 3.8, Chloride 112 H, Carbon Dioxide 26.0, Anion Gap 6, BUN 28 H, Creatinine 0.84, Estim Creat Clear Calc 73.65, Est GFR (MDRD) Af Amer 113, Est GFR (MDRD) Non-Af 94, BUN/Creatinine Ratio 33.1 H, Glucose 196 H, Calcium 8.5 09/21/17 04:45: WBC 4.0 L, RBC 3.55 L, Hgb 11.6 L, Hct 32.7 L, MCV 92.1, MCH 32.7 H, MCHC 35.5, RDW 14.1, RDW Differential 46.0 H, Plt Count 123 L, MPV 10.5, Immature Gran % (Auto) 0.200, Neut % (Auto) 39.6 L, Lymph % (Auto) 41.5 H, [place] % (Auto) 15.2 H, Eos % (Auto) 3.0, Baso % (Auto) 0.5, Absolute Neuts (auto) 1.6 L, Absolute Lymphs (auto) 1.67, Total Counted Not Reportable 09/21/17 05:48: POC Glucose 196 H 09/21/17 06:59: POC Glucose 192 H Current Medications Acetaminophen (Tylenol) 650 mg PO Q6H PRN PRN PRN Reason: Non-cardiac pain (mod-severe) Al Hydroxide/Mg Hydroxide (Mylanta Ii) 30 ml PO Q6H PRN PRN PRN Reason: Gastric burning Aspirin (Aspirin, Baby) 81 mg PO DAILY@0800 [facility] Carvedilol (Coreg) 12.5 mg PO BID [facility] Last Admin: 09/20/17 21:15 Dose: 12.5 mg Clobetasol Propionate (Temovate Cream (Bkc)) 1 applic TOPICAL DAILY PRN PRN; Protocol PRN Reason: PSORIASIS Dextrose (D50w Syringe) 0 gm IV X1 PRN; Protocol PRN Reason: Hypoglycemia Emollient Ointment (Eucerin Intensive Repair) 1 applic TOPICAL BID NICKI PRN Reason: Protocol Last Admin: 09/20/17 21:14 Dose: 1 applicatio Heparin Sodium (Porcine) (Heparin Na) 5,000 unit SC Q8 [facility] Last Admin: 09/21/17 05:51 Dose: 5,000 u Hydralazine HCl (Apresoline Iv) 10 mg IV Q4H PRN PRN PRN Reason: SBP > 160 Hydrocortisone (Hytone) 1 applic TOPICAL DAILY PRN PRN PRN Reason: ITCHING Insulin Aspart 100 unit/ (Sodium Chloride) 100 mls @ 7.78 mls/hr CONT INF .[id number] [facility]; 0.1 UNITS/KG/HR PRN Reason: Protocol Last Admin: 09/21/17 07:00 Dose: Not Given Potassium Chloride/Dextrose/Sod Cl (Kcl 20meq In D5.45ns 1000ml) 1,000 mls @ 150 mls/hr IV .Q6H40M [facility] Last Admin: 09/21/17 05:50 Dose: 150 mls/hr Insulin Detemir (Levemir (Bkc)) 10 units SC X1 ONE Stop: 09/21/17 07:14 Iron (Feosol) 45 mg PO DAILYCM [facility] Magnesium Hydroxide (Milk Of Magnesia) 30 ml PO DAILY PRN PRN PRN Reason: Constipation Non-Formulary Medication (Ketoconazole [Nizoral]) 120 ml TP DAILY PRN PRN Reason: ITCHING Nystatin (Nystatin) 500,000 unit PO 4X/DAY [facility] Last Admin: 09/20/17 21:15 Dose: 500,000 unit Ondansetron HCl (Zofran) 4 mg IV Q8H PRN PRN PRN Reason: NAUSEA/VOMITING Pantoprazole Sodium (Protonix) 20 mg PO BID [facility] Last Admin: 09/20/17 21:16 Dose: 20 mg Polyethylene Glycol (Miralax) 17 gm PO DAILY [facility] Promethazine HCl (Phenergan) 12.5 mg IV Q6H PRN PRN PRN Reason: NAUSEA/VOMITING Senna (Senokot) 1 tablet PO BID PRN PRN PRN Reason: Constipation Sodium Chloride () 5 - 30 ml IV UD PRN PRN Reason: SALINE FLUSH Medical Necessity - Tobacco Use Smoking Status: Former smoker Tobacco Use: Non-smoker Assessment/Plan Active and Suspected Problems BRIELLE (acute kidney injury) (Acute) Hyponatremia (Acute) Hyperglycemia (Acute) 77 y/o M with past medical history of Gallbladder Carcinoma s/p cholecystectomy and chemotherapy(2 weeks ago), following with Dr. oRbin, hypertension, DM type II admitted on 09/20/17 with decreased oral intake and confusion of 2 days duration. 1. Acute metabolic encephalopathy related to HHS, resolved, patient is oriented x3, will continue to monitor 2. HHS in a type 2DM, HbA1c is 11.8 in this admission, anion gap is 6 , on insulin drip with bridging with Levemir, will continue to monitor blood sugars closely, not on any medications at home, dietitian/nutrition consulted 3. BRIELLE secondary to dehydration, resolved, creatinine at baseline. 4. Hypovolemic hyponatremia, resolved, patient's sodium is normal we will continue to monitor with repeat BMP. 5. Gallbladder Carcinoma, following up chemotherapy in the outpatient. 6. Fe Deficiency Anemia, hemoglobin dropped from 14.8 to 11.6 because of hemodilution, will continue on oral iron. 7. Hypertension, controlled, continue on Coreg, lisinopril held because of HPI, will continue to monitor and may resume lisinopril before discharge 8. Chronic Constipation, continue home regimen 9. Psoriasis, continue on home regimen 10. Severe Protein-Calorie Malnutrition, dietitian consulted 11. DVT Prophylaxis - Heparin SC. 12. GI Prophylaxis with PPI 13. CODE status - DNR-CCA Code Visit Inpatient E&M: 52069 Subs Hosp L3
[2017-09-21 08:16] LABS: Bedside Glucose 151 mg/dL (70-110)
[2017-09-21] MEDS: Aspirin 81 MG TAB.CHEW PO (08:19)
[2017-09-21 09:23] LABS: Phosphorus 2.5 mg/dL (2.5-4.9)
[2017-09-21 09:36] LABS: Bedside Glucose 119 mg/dL (70-110)
[2017-09-21 10:41] LABS: Bedside Glucose 123 mg/dL (70-110)
[2017-09-21] MEDS: Pantoprazole Sodium 20 MG Tablet PO ×2 (11:11→21:29)
[2017-09-21] MEDS: Carvedilol 12.5 MG Tablet PO ×2 (11:11→21:29)
[2017-09-21] MEDS: NYSTATIN 500,000 UNIT/5 ML UDC 500000 UNIT PO ×4 (11:11→21:29)
[2017-09-21] MEDS: Senna Tablet 1 TABLET PO (11:18)
--- NOTE | 2017-09-21 14:00 | CASEMGMT ---
Addendum entered by Jorge Stanford 09/21/17 16:03: Call received from [facility]. They are able to provide Home Health services on dc. Blaire BLACK RN BEBE Original Note: See RN CM Assessment Link. DC PLAN Home with [facility]. -Intro role of CM to patient and his daughter. Pt would like Home Health for diabetic reinforcement, post hospital assessment. Call to [facility], message left reg consult. Blaire BLACK RN ACM
[2017-09-21 14:11] LABS: Bedside Glucose 327 mg/dL (70-110)
[2017-09-21] MEDS: Glucerna Shake 120 ML LIQUID PO (17:29)
[2017-09-21 17:31] LABS: Bedside Glucose 401 mg/dL (70-110)
[2017-09-21 21:56] LABS: Bedside Glucose 358 mg/dL (70-110)
[2017-09-22] VITALS (11 sets, daily range): BP systolic 126–158; BP diastolic 71–91; PULSE 70–88; RESP 16–20; TEMP 36.7–37.2; O2SAT 94–100
[2017-09-22] MEDS: Heparin Injection (Vial) 5,000 UNIT/ML VIAL 5000 UNIT SC ×3 (06:47→21:33)
[2017-09-22 07:00] LABS: Bedside Glucose 390 mg/dL (70-110)
[2017-09-22 07:41] LABS: Anion Gap 9 (5-15); BUN 23 mg/dL (7-18); BUN/Creat Ratio 25.6 RATIO (10-20); Calcium,Total 9.3 mg/dL (8.5-10.1); Chloride 105 mmol/L (98-107); EST Glomerular Filtration Rate 87 mL/min (>60); Est Glom Filt Rate - Afr Amer 105 mL/min (>60); Estimated Creatinine Clearance 68.74 ml/min; Glucose 382 mg/dL (74-106); Magnesium 2.2 mg/dL (1.6-2.6); Phosphorus 2.5 mg/dL (2.5-4.9); Potassium 4.1 mmol/L (3.5-5.1); Sodium Level 138 mmol/L (136-145)
--- NOTE | 2017-09-22 08:55 | PCM.DC ---
- Discharge Diagnoses Current Active Problems: Current Active and Chronic Problems BRIELLE (acute kidney injury) (Acute) Hyponatremia (Acute) Hyperglycemia (Acute) Allergies/Adverse Reactions: Allergies No Known Allergies Allergy (Verified 09/20/17 12:37) Medications to take at Discharge Aspirin [Aspirin, Baby] 81 mg PO DAILY@0800 11/18/16 Carvedilol [Coreg] 12.5 mg PO BID 11/18/16 Senna [Senokot] 1 tablet PO BID PRN PRN 03/09/17 Lisinopril [Zestril] 40 mg PO DINNER 09/21/17 Insulin Detemir [Levemir FlexPen] 15 units SC QHS #1 insuln.pen 09/22/17 Iron Carbonyl [Feosol] 45 mg PO DAILYCM #30 cap 09/22/17 The following prescriptions were given: Insulin Detemir [Levemir FlexPen] 15 units SC QHS #1 insuln.pen Iron Carbonyl [Feosol] 45 mg PO DAILYCM #30 cap Primary Care Physician: Care Physician,No Primary [NON-STAFF] -
[2017-09-22] MEDS: Pantoprazole Sodium 20 MG Tablet PO ×2 (09:11→21:32)
[2017-09-22] MEDS: NYSTATIN 500,000 UNIT/5 ML UDC 500000 UNIT PO ×4 (09:11→21:32)
[2017-09-22] MEDS: Polyethylene Glycol 3350 17 GM PACKET PO (09:11)
[2017-09-22] MEDS: Aspirin 81 MG TAB.CHEW PO (09:12)
[2017-09-22] MEDS: Carvedilol 12.5 MG Tablet PO ×2 (09:12→21:32)
--- NOTE | 2017-09-22 09:21 | PCM.DC ---
- Discharge Diagnoses Current Active Problems: Current Active and Chronic Problems BRIELLE (acute kidney injury) (Acute) Hyponatremia (Acute) Hyperglycemia (Acute) Reason(s) for Visit for Discharge Instructions: High blood sugar You will use the following diet at home:: Calorie/Carbohydrate Controlled (specify 1200, 1400, etc) Your food should be the consistency of: Regular Your liquids should be the consistency of: Regular/Thin Discharge Activity: Return to Normal Activity Additional Instructions: Check your blood sugar 4 times a day - before breakfast, lunch and dinner and befor bedtime. Write down all your blood sugar readings. Follow-up with the diabetes team in 1 week with a log of your blood sugar. You may need to have your insulin dose reduced if your blood sugars get better. Let the diabetes team know earlier if your blood sugars are reading closer to 100. Know the signs of low blood sugar which include dizziness, sweatiness, and feeling unwell. Check your blood sugar immediately. If your blood sugar is below 70 or close to 70, drink any sugary drink such as orange juice available, recheck your blood sugar and let your doctor know. Allergies/Adverse Reactions: Allergies No Known Allergies Allergy (Verified 09/20/17 12:37) Medications to take at Discharge Aspirin [Aspirin, Baby] 81 mg PO DAILY@0800 11/18/16 Carvedilol [Coreg] 12.5 mg PO BID 11/18/16 Senna [Senokot] 1 tablet PO BID PRN PRN 03/09/17 Lisinopril [Zestril] 40 mg PO DINNER 09/21/17 Insulin Detemir [Levemir FlexPen] 15 units SC QHS #1 insuln.pen 09/22/17 Iron Carbonyl [Feosol] 45 mg PO DAILYCM #30 cap 09/22/17 The following prescriptions were given: Insulin Detemir [Levemir FlexPen] 15 units SC QHS #1 insuln.pen Iron Carbonyl [Feosol] 45 mg PO DAILYCM #30 cap Orders to be completed after discharge: Basic Metabolic Profile (BMP) Time Frame: 1 Week, Location: Laboratory Glucometer Location: None Selected Primary Care Physician: Care Physician,No Primary [NON-STAFF] - Please follow up with your Primary Care Physician in: within 2 weeks Please Follow Up With: Shena Osullivan NP-C When: in 1 week Proposed Discharge Date: 09/22/17
--- NOTE | 2017-09-22 09:37 | DCINST_ITS ---
- Discharge Diagnoses Current Active Problems: Current Active and Chronic Problems BRIELLE (acute kidney injury) (Acute) Hyponatremia (Acute) Hyperglycemia (Acute) Reason(s) for Visit for Discharge Instructions: High blood sugar You will use the following diet at home:: Calorie/Carbohydrate Controlled ( specify 1200, 1400, etc) Your food should be the consistency of: Regular Your liquids should be the consistency of: Regular/Thin Discharge Activity: Return to Normal Activity Additional Instructions: Check your blood sugar 4 times a day - before breakfast , lunch and dinner and befor bedtime. Write down all your blood sugar readings. Follow-up with the diabetes team in 1 week with a log of your blood sugar. You may need to have your insulin dose reduced if your blood sugars get better. Let the diabetes team know earlier if your blood sugars are reading closer to 100. Know the signs of low blood sugar which include dizziness, sweatiness, and feeling unwell. Check your blood sugar immediately. If your blood sugar is below 70 or close to 70, drink any sugary drink such as orange juice available, recheck your blood sugar and let your doctor know. Allergies/Adverse Reactions: Allergies No Known Allergies Allergy (Verified 09/20/17 12:37) Medications to take at Discharge Aspirin [Aspirin, Baby] 81 mg PO DAILY@0800 11/18/16 Carvedilol [Coreg] 12.5 mg PO BID 11/18/16 Senna [Senokot] 1 tablet PO BID PRN PRN 03/09/17 Lisinopril [Zestril] 40 mg PO DINNER 09/21/17 Insulin Detemir [Levemir FlexPen] 15 units SC QHS #1 insuln.pen 09/22/17 Iron Carbonyl [Feosol] 45 mg PO DAILYCM #30 cap 09/22/17 The following prescriptions were given: Insulin Detemir [Levemir FlexPen] 15 units SC QHS #1 insuln.pen Iron Carbonyl [Feosol] 45 mg PO DAILYCM #30 cap Orders to be completed after discharge: Basic Metabolic Profile (BMP) Time Frame: 1 Week, Location: Laboratory Glucometer Location: None Selected Primary Care Physician: Care Physician,No Primary [NON-STAFF] - Please follow up with your Primary Care Physician in: within 2 weeks Please Follow Up With: Shena Osullivan NP-C When: in 1 week Proposed Discharge Date: 09/22/17
--- NOTE | 2017-09-22 09:39 | PCM.DC.SUM ---
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 Electronically Signed: Vic Tavares MD at 13:39 EDT , Service support , Chest X-Ray 09/20/17 12:45 IMPRESSION: 1. No acute cardiopulmonary pathology. 2. Interval placement of right IJ approach Phkg-U-Daikeygl which has retracted cephalad. The tip is still in the SVC but close to the right subclavian vein. Electronically Signed: Vic Tavares MD at 13:36 EDT , Service support , Director Global Strategic Publisher Sales Operations: None Procedures: None Summary of Care Provided: 77 y/o M with past medical history of Gallbladder Carcinoma s/p cholecystectomy and chemotherapy(2 weeks ago), following with Dr. Robin, hypertension, DM type II admitted on 09/20/17 with decreased oral intake and confusion of 2 days duration. 1. Acute metabolic encephalopathy related to HHS, resolved 2. HHS in a type 2DM, HbA1c is 11.8 in this admission, anion gap is 6, managed on insulin drip, started on Levemir 10 units, BS fairly controlled, discharged on Levemir 15 units QHS, will follow up with endocrinology in [place]. To be followed up with home health for management of diabetes. 3. BRIELLE secondary to dehydration, resolved 4. Hypovolemic hyponatremia, resolved 5. Gallbladder Carcinoma, following up chemotherapy in the outpatient. 6. Fe Deficiency Anemia, on oral iron, 7. Hypertension, controlled, lisinopril 8. Chronic Constipation, continue home regimen 9. Psoriasis, continue on home regimen 10. Severe Protein-Calorie Malnutrition Discharge Diet: Low fat/ Low Cholesterol, 2000 mg Sodium Diet, Carb Control Diet Discharge Activity: Return to Normal Activity Home Medications: Medications to take at Discharge Aspirin [Aspirin, Baby] 81 mg PO DAILY@0800 11/18/16 Carvedilol [Coreg] 12.5 mg PO BID 11/18/16 Senna [Senokot] 1 tablet PO BID PRN PRN 03/09/17 Lisinopril [Zestril] 40 mg PO DINNER 09/21/17 Insulin Detemir [Levemir FlexPen] 15 units SC QHS #1 insuln.pen 09/22/17 Iron Carbonyl [Feosol] 45 mg PO DAILYCM #30 cap 09/22/17 Following Prescrptions Were Given to Patient: Insulin Detemir [Levemir FlexPen] 15 units SC QHS #1 insuln.pen Iron Carbonyl [Feosol] 45 mg PO DAILYCM #30 cap Other Amb Orders: Glucometer Location: None Selected Primary Care Physician: Care Physician,No Primary [NON-STAFF] - Please follow up with your Primary Care Physician in: within 2 weeks Please Follow Up With: Shena Osullivan CONCENTRATOR OPERATOR-C When: in 1 week Disposition: Home with Home Health Minutes spent on discharge:: 45 Patient Condition:: Stable Medical Necessity - Tobacco Use Smoking Status: Former smoker Tobacco Use: Non-smoker Meaningful Use Info Meaningful Use Diagnoses (Choose all that apply): None applicable Code Visit Inpatient E&M: 65448 Disch Hosp
[2017-09-22 11:21] LABS: Bedside Glucose 413 mg/dL (70-110)
[2017-09-22] MEDS: Glucerna Shake 120 ML LIQUID PO (12:49)
[2017-09-22 13:51] LABS: Bedside Glucose 462 mg/dL (70-110)
--- NOTE | 2017-09-22 14:24 | NURSING ---
DAUGHTER IN ROOM, REQUESTING TO SPEAK TO DR LEWIS-DAD HAS HAD EPISODES WHERE HE ZONES OUT SEEMS CONFUSED, BLOOD SUGAR AFTER LUNCH IS 470'S-DR LEWIS NOTIFIED
--- NOTE | 2017-09-22 15:26 | PCM.PN.BLA ---
Progress Note Called to see patient who has been discharged and having reported episodes of confusion. Seen patient with his daughter, who works here on the floor. Patient is alert, oriented x3, no focal neurological signs seen. Ambulated around the room with walker. Patient apparently ordered mashed potatoes, noodles with beef tips, carrots etc for lunch. Not sure what he had and the portions he had for breakfast. BS was 462. Discussed about blood sugar control and portions. Called dietican - updated them, they will make changes to calorie counting.
[2017-09-22 16:56] LABS: Bedside Glucose > 500 mg/dL (70-110)
[2017-09-22] MEDS: Lisinopril 40 MG Tablet PO (17:15)
[2017-09-22 17:57] LABS: Glucose 492 mg/dL (74-106)
[2017-09-22 18:05] LABS: Bedside Glucose 413 mg/dL (70-110)
[2017-09-22] MEDS: 0.9% NaCl Peripheral Flush Adult/Peds IV (21:32)
[2017-09-22 21:56] LABS: Bedside Glucose 347 mg/dL (70-110)
[2017-09-23 03:30] VITALS: BP 101/66; PULSE 85; RESP 14; TEMP 37.1; O2SAT 97
[2017-09-23 04:09] VITALS: PULSE 80
[2017-09-23] MEDS: Heparin Injection (Vial) 5,000 UNIT/ML VIAL 5000 UNIT SC (06:31)
[2017-09-23 07:49] VITALS: BP 131/81; PULSE 76; RESP 18; TEMP 36.7; O2SAT 99
[2017-09-23] MEDS: NYSTATIN 500,000 UNIT/5 ML UDC 500000 UNIT PO ×2 (07:53→12:50)
[2017-09-23] MEDS: Polyethylene Glycol 3350 17 GM PACKET PO (07:53)
[2017-09-23] MEDS: Aspirin 81 MG TAB.CHEW PO (07:56)
[2017-09-23] MEDS: Pantoprazole Sodium 20 MG Tablet PO (07:57)
[2017-09-23] MEDS: Carvedilol 12.5 MG Tablet PO (07:57)
[2017-09-23 08:06] LABS: Bedside Glucose 321 mg/dL (70-110)
--- NOTE | 2017-09-23 10:37 | PCM.PN.HOSP ---
Patient Problems: Active and Suspected Problems BRIELLE (acute kidney injury) (Acute) Hyponatremia (Acute) Hyperglycemia (Acute) Subjective: Seen and examined. Denies any new complaints. No acute events overnight. Blood sugars high. Discussed with precision structural metal fitter; educated on carb diet, questions have been answered. Objective: Physical exam: General: Alert, Oriented x3, Cooperative, No apparent distress HEENT: Atraumatic, PERRLA, EOMI, Normocephalic Oral: Moist Mucosa Neck: Supple Lungs: Clear to auscultation, Normal air movement Cardiovascular: Regular rate, Regular Rhythm, Normal S1, Normal S2, No murmurs Abdomen: Bowel Sounds Present, Soft, Non Tender, Non-Distended, No Hepato-splenomegaly Extremities: No edema Skin: No rashes Musculoskeletal: No Tenderness to Palpation of Joints or Extremities Lymphatic: No Cervical, Supraclavicular, or Inguinal Adenopathy Neurological: Cranial nerves II-XII grossly intact Psych/Mental Status: Normal Affect, Appropriate Vitals/I&O's: Vital Signs Temp Pulse Resp BP Pulse Ox 98.0 F 76 18 131/81 H 99 09/23/17 07:49 09/23/17 07:49 09/23/17 07:49 09/23/17 07:49 09/23/17 07:49 Oxygen Delivery Method Room Air Weight: 82.117 kg Body Mass Index (BMI) 24.6 Finger Stick Blood Glucose 151 Intake and Output for Last 24 Hours 09/21/17 09/22/17 09/23/17 23:59 23:59 23:59 Intake Total 3160 / 3160 1260 / 1260 200 / 200 Output Total 1000 / 1000 1800 / 1800 300 / 300 Balance 2160 / 2160 -540 / -540 -100 / -100 Laboratory Results 09/22/17 11:15: POC Glucose 413 H 09/22/17 13:44: POC Glucose 462 H* 09/22/17 16:46: POC Glucose > 500 H* 09/22/17 17:02: Glucose 492 H* 09/22/17 17:55: POC Glucose 413 H 09/22/17 21:30: POC Glucose 347 H 09/23/17 07:47: POC Glucose 321 H Current Medications Acetaminophen (Tylenol) 650 mg PO Q6H PRN PRN PRN Reason: Non-cardiac pain (mod-severe) Al Hydroxide/Mg Hydroxide (Mylanta Ii) 30 ml PO Q6H PRN PRN PRN Reason: Gastric burning Aspirin (Aspirin, Baby) 81 mg PO DAILY@0800 [facility] Last Admin: 09/23/17 07:56 Dose: 81 mg Carvedilol (Coreg) 12.5 mg PO BID [facility] Last Admin: 09/23/17 07:57 Dose: 12.5 mg Clobetasol Propionate (Temovate Cream (Bkc)) 1 applic TOPICAL DAILY PRN PRN; Protocol PRN Reason: PSORIASIS Dextrose (D50w Syringe) 0 gm IV X1 PRN; Protocol PRN Reason: Hypoglycemia Dextrose (D50w Syringe) 0 gm IV X1 PRN; Protocol PRN Reason: Hypoglycemia Emollient Ointment (Eucerin Intensive Repair) 1 applic TOPICAL BID NICKI PRN Reason: Protocol Last Admin: 09/23/17 07:53 Dose: 1 applicatio Glucagon () 1 mg IM .X1 PRN PRN Reason: Hypoglycemia Heparin Sodium (Porcine) (Heparin Na) 5,000 unit SC Q8 [facility] Last Admin: 09/23/17 06:31 Dose: 5,000 u Hydralazine HCl (Apresoline Iv) 10 mg IV Q4H PRN PRN PRN Reason: SBP > 160 Hydrocortisone (Hytone) 1 applic TOPICAL DAILY PRN PRN PRN Reason: ITCHING Insulin Aspart (Novolog Flexpen (Bkc)) 5 units SC DINNER [facility] Last Admin: 09/22/17 17:39 Dose: 5 u Insulin Aspart (Novolog Flexpen (Bkc)) 0 units SC ACHS [facility] PRN Reason: Protocol Last Admin: 09/23/17 07:55 Dose: 6 units Insulin Aspart (Novolog Flexpen (Bkc)) 5 units SC BREAKFAST [facility] Last Admin: 09/23/17 07:55 Dose: 5 u Insulin Aspart (Novolog Flexpen (Bkc)) 5 units SC LUNCH [facility] Insulin Detemir (Levemir (Bkc)) 20 units SC QHS [facility] Iron (Feosol) 45 mg PO DAILYCM [facility] Last Admin: 09/23/17 07:56 Dose: 45 mg Lisinopril (Zestril) 40 mg PO DINNER [facility] Last Admin: 09/22/17 17:15 Dose: 40 mg Magnesium Hydroxide (Milk Of Magnesia) 30 ml PO DAILY PRN PRN PRN Reason: Constipation Nystatin (Nystatin) 500,000 unit PO 4X/DAY [facility] Last Admin: 09/23/17 07:53 Dose: 500,000 unit Ondansetron HCl (Zofran) 4 mg IV Q8H PRN PRN PRN Reason: NAUSEA/VOMITING Pantoprazole Sodium (Protonix) 20 mg PO BID [facility] Last Admin: 09/23/17 07:57 Dose: 20 mg Polyethylene Glycol (Miralax) 17 gm PO DAILY [facility] Last Admin: 09/23/17 07:53 Dose: 17 gm Promethazine HCl (Phenergan) 12.5 mg IV Q6H PRN PRN PRN Reason: NAUSEA/VOMITING Senna (Senokot) 1 tablet PO BID PRN PRN PRN Reason: Constipation Last Admin: 09/21/17 11:18 Dose: 1 tablet Sodium Chloride () 5 - 30 ml IV UD PRN PRN Reason: SALINE FLUSH Last Admin: 09/22/17 21:32 Dose: 10 ml Medical Necessity - Tobacco Use Smoking Status: Former smoker Tobacco Use: Non-smoker Assessment/Plan Active and Suspected Problems BRIELLE (acute kidney injury) (Acute) Hyponatremia (Acute) Hyperglycemia (Acute) 77 y/o M with past medical history of Gallbladder Carcinoma s/p cholecystectomy and chemotherapy (2 weeks ago), following with Dr. Robin, hypertension, Type II admitted on 09/20/17 with decreased oral intake and confusion of 2 days duration. 1. Acute metabolic encephalopathy related to hyperglycemia, no confusion noted today, patient is appropriate, alert, oriented x 3. 2. HHS/Hyperglycemia in a type 2 DM, HbA1c is 11.8 in this admission, BS are uncontrolled, his Levemir to 20 units nightly with 5 units pre-meal insulin as well as Accu-Cheks. Patient will need intense DM education and close follow-up. 3. BRIELLE secondary to dehydration, resolved 4. Hypovolemic hyponatremia, resolved 5. Gallbladder Carcinoma, following up chemotherapy in the outpatient. 6. Fe Deficiency Anemia, on oral iron. 7. Hypertension, controlled, continue on Coreg, lisinopril 8. Chronic Constipation, continue home regimen 9. Psoriasis, continue on home regimen 10. Severe Protein-Calorie Malnutrition, dietitian consulted 11. DVT Prophylaxis - Heparin SC. 12. GI Prophylaxis with PPI 13. CODE status - DNR-CCA Code Visit Inpatient E&M: 76014 Subs Hosp L2
--- NOTE | 2017-09-23 10:44 | PN_ITS ---
Patient Problems: Active and Suspected Problems BRIELLE (acute kidney injury) (Acute) Hyponatremia (Acute) Hyperglycemia (Acute) Subjective: Seen and examined. Denies any new complaints. No acute events overnight. Blood sugars high. Discussed with corrugator operator helper; educated on carb diet, questions have been answered. Objective: Physical exam: General: Alert, Oriented x3, Cooperative, No apparent distress HEENT: Atraumatic, PERRLA, EOMI, Normocephalic Oral: Moist Mucosa Neck: Supple Lungs: Clear to auscultation, Normal air movement Cardiovascular: Regular rate, Regular Rhythm, Normal S1, Normal S2, No murmurs Abdomen: Bowel Sounds Present, Soft, Non Tender, Non-Distended, No Hepato- splenomegaly Extremities: No edema Skin: No rashes Musculoskeletal: No Tenderness to Palpation of Joints or Extremities Lymphatic: No Cervical, Supraclavicular, or Inguinal Adenopathy Neurological: Cranial nerves II-XII grossly intact Psych/Mental Status: Normal Affect, Appropriate Vitals/I&O's: Vital Signs Temp Pulse Resp BP Pulse Ox 98.0 F 76 18 131/81 H 99 09/23/17 07:49 09/23/17 07:49 09/23/17 07:49 09/23/17 07:49 09/23/17 07:49 Oxygen Delivery Method Room Air Weight: 82.117 kg Body Mass Index (BMI) 24.6 Finger Stick Blood Glucose 151 Intake and Output for Last 24 Hours 09/21/17 09/22/17 09/23/17 23:59 23:59 23:59 Intake Total 3160 / 3160 1260 / 1260 200 / 200 Output Total 1000 / 1000 1800 / 1800 300 / 300 Balance 2160 / 2160 -540 / -540 -100 / -100 Laboratory Results 09/22/17 11:15: POC Glucose 413 H 09/22/17 13:44: POC Glucose 462 H* 09/22/17 16:46: POC Glucose > 500 H* 09/22/17 17:02: Glucose 492 H* 09/22/17 17:55: POC Glucose 413 H 09/22/17 21:30: POC Glucose 347 H 09/23/17 07:47: POC Glucose 321 H Current Medications Acetaminophen (Tylenol) 650 mg PO Q6H PRN PRN PRN Reason: Non-cardiac pain (mod-severe) Al Hydroxide/Mg Hydroxide (Mylanta Ii) 30 ml PO Q6H PRN PRN PRN Reason: Gastric burning Aspirin (Aspirin, Baby) 81 mg PO DAILY@0800 [facility] Last Admin: 09/23/17 07:56 Dose: 81 mg Carvedilol (Coreg) 12.5 mg PO BID [facility] Last Admin: 09/23/17 07:57 Dose: 12.5 mg Clobetasol Propionate (Temovate Cream (Bkc)) 1 applic TOPICAL DAILY PRN PRN; Protocol PRN Reason: PSORIASIS Dextrose (D50w Syringe) 0 gm IV X1 PRN; Protocol PRN Reason: Hypoglycemia Dextrose (D50w Syringe) 0 gm IV X1 PRN; Protocol PRN Reason: Hypoglycemia Emollient Ointment (Eucerin Intensive Repair) 1 applic TOPICAL BID NICKI PRN Reason: Protocol Last Admin: 09/23/17 07:53 Dose: 1 applicatio Glucagon () 1 mg IM .X1 PRN PRN Reason: Hypoglycemia Heparin Sodium (Porcine) (Heparin Na) 5,000 unit SC Q8 [facility] Last Admin: 09/23/17 06:31 Dose: 5,000 u Hydralazine HCl (Apresoline Iv) 10 mg IV Q4H PRN PRN PRN Reason: SBP > 160 Hydrocortisone (Hytone) 1 applic TOPICAL DAILY PRN PRN PRN Reason: ITCHING Insulin Aspart (Novolog Flexpen (Bkc)) 5 units SC DINNER [facility] Last Admin: 09/22/17 17:39 Dose: 5 u Insulin Aspart (Novolog Flexpen (Bkc)) 0 units SC ACHS [facility] PRN Reason: Protocol Last Admin: 09/23/17 07:55 Dose: 6 units Insulin Aspart (Novolog Flexpen (Bkc)) 5 units SC BREAKFAST [facility] Last Admin: 09/23/17 07:55 Dose: 5 u Insulin Aspart (Novolog Flexpen (Bkc)) 5 units SC LUNCH [facility] Insulin Detemir (Levemir (Bkc)) 20 units SC QHS [facility] Iron (Feosol) 45 mg PO DAILYCM [facility] Last Admin: 09/23/17 07:56 Dose: 45 mg Lisinopril (Zestril) 40 mg PO DINNER [facility] Last Admin: 09/22/17 17:15 Dose: 40 mg Magnesium Hydroxide (Milk Of Magnesia) 30 ml PO DAILY PRN PRN PRN Reason: Constipation Nystatin (Nystatin) 500,000 unit PO 4X/DAY [facility] Last Admin: 09/23/17 07:53 Dose: 500,000 unit Ondansetron HCl (Zofran) 4 mg IV Q8H PRN PRN PRN Reason: NAUSEA/VOMITING Pantoprazole Sodium (Protonix) 20 mg PO BID [facility] Last Admin: 09/23/17 07:57 Dose: 20 mg Polyethylene Glycol (Miralax) 17 gm PO DAILY [facility] Last Admin: 09/23/17 07:53 Dose: 17 gm Promethazine HCl (Phenergan) 12.5 mg IV Q6H PRN PRN PRN Reason: NAUSEA/VOMITING Senna (Senokot) 1 tablet PO BID PRN PRN PRN Reason: Constipation Last Admin: 09/21/17 11:18 Dose: 1 tablet Sodium Chloride () 5 - 30 ml IV UD PRN PRN Reason: SALINE FLUSH Last Admin: 09/22/17 21:32 Dose: 10 ml Medical Necessity - Tobacco Use Smoking Status: Former smoker Tobacco Use: Non-smoker Assessment/Plan Active and Suspected Problems BRIELLE (acute kidney injury) (Acute) Hyponatremia (Acute) Hyperglycemia (Acute) 77 y/o M with past medical history of Gallbladder Carcinoma s/p cholecystectomy and chemotherapy (2 weeks ago), following with Dr. Robin, hypertension, Type II admitted on 09/20/17 with decreased oral intake and confusion of 2 days duration. 1. Acute metabolic encephalopathy related to hyperglycemia, no confusion noted today, patient is appropriate, alert, oriented x 3. 2. HHS/Hyperglycemia in a type 2 DM, HbA1c is 11.8 in this admission, BS are uncontrolled, his Levemir to 20 units nightly with 5 units pre-meal insulin as well as Accu-Cheks. Patient will need intense DM education and close follow- up. 3. BRIELLE secondary to dehydration, resolved 4. Hypovolemic hyponatremia, resolved 5. Gallbladder Carcinoma, following up chemotherapy in the outpatient. 6. Fe Deficiency Anemia, on oral iron. 7. Hypertension, controlled, continue on Coreg, lisinopril 8. Chronic Constipation, continue home regimen 9. Psoriasis, continue on home regimen 10. Severe Protein-Calorie Malnutrition, dietitian consulted 11. DVT Prophylaxis - Heparin SC. 12. GI Prophylaxis with PPI 13. CODE status - DNR-CCA Code Visit Inpatient E&M: 30569 Subs Hosp L2
[2017-09-23 11:40] VITALS: PULSE 84
[2017-09-23 11:56] LABS: Bedside Glucose 351 mg/dL (70-110)
[2017-09-23 14:51] VITALS: BP 121/71; PULSE 80; RESP 20; TEMP 36.7; O2SAT 99
--- NOTE | 2017-09-23 15:26 | CHAPLAIN ---
Type of Pastoral Visit _x__ Initial Visit ___ Follow-up Visit ___ On-call Visit ___ General Patient Visit ___ Spiritual Assessment ___ Family Conference ___ Bereavement ___ Rapid Response ___ Code Blue ___ Other (describe below) Pastoral Care Referral From _x__ Patient ___ Family ___ Nurse ___ Physician ___ Loom Inspector ___ Senior Media Buyer ___ Other (describe below) Sacrament/Intervention _x__ Active listening ___ Anointing ___ Christianity ___ Bereavement ___ Communion _x__ Suzie exploration ___ ___ Life review _x__ Prayer ___ Reconciliation ___ Sacrament of Sick __x_ Supportive presence ___ Wedding ___ Other (describe below) Pastoral Comments
[2017-09-23 15:51] LABS: Bedside Glucose 315 mg/dL (70-110)
--- NOTE | 2017-09-24 08:36 | CASEMGMT ---
Addendum entered by Penelope Gu 09/24/17 10:46: SAVANA received call back from Guerline with [facility] and she states that they will see pt today. SAVANA updated Dr. Mir of this. Original Note: Social Work Note SAVANA called Guerline at [facility] to inform her that pt discharged yesterday. Dr. Mir asked this worker when [facility] will be able to see pt and this worker also asked Guerline this. SAVANA waiting for call back to get information about when [facility] is able to see pt. Plan: Pt discharged yesterday with [facility] Penelope Gu TEACHER INSTRUMENTAL, BINGO CALLER
--- NOTE | 2017-09-24 16:12 | CASEMGMT ---
ROWDY STACK Discharge Follow-up Phone Call: MAXIM: Mary Strata: 3 Call Date: 09/24/17 Discharge Date: 09/23/17 Time of Call: 1610 Duration: 5 Min Admitting Diagnosis: HHS, BRIELLE, Hyponatremia, Encephalopathy RN SREEKANTH called and follow-up with patient after discharge from hospital. Patient states he is doing well and that [facility] came to visit patient today. Patient and both on phone and state there was issues with getting his glucometer from [facility] but daughter updated PCP and is having script sent to [facility] who is in contract with patient's insurance. Patient has follow-up appt with PCP on 10/02/17. Daughter Ana involved with care and ROWDY STACK spoke with daughter as well and updated if any concerns to follow-up with CM.
== END 2017-09-23 17:00 | disposition home or self-care (01) | DRG 637 ==
LOC: ED 13:11 → ICU 14:29 → MS3 09-21 13:10
PROVIDERS: Internal Medicine Critical Care Medicine; Admitting Provider Family Medicine; Emergency Provider Emergency Medicine; Family Provider Family Medicine; PCP Family Medicine; Visit Provider Internal Medicine
DX: E11.00 Type 2 diabetes mellitus with hyperosmolarity without nonketotic hyperglycemic-hyperosmolar coma (NKHHC) (principal); G93.41 Metabolic encephalopathy; E43 Unspecified severe protein-calorie malnutrition; N17.9 Acute kidney failure, unspecified; E87.1 Hypo-osmolality and hyponatremia; E11.65 Type 2 diabetes mellitus with hyperglycemia; E86.0 Dehydration; I10 Essential (primary) hypertension; Z85.89 Personal history of malignant neoplasm of other organs and systems; Z79.4 Long term (current) use of insulin; Z79.82 Long term (current) use of aspirin; Z79.899 Other long term (current) drug therapy; D50.9 Iron deficiency anemia, unspecified; K59.09 Other constipation; L40.9 Psoriasis, unspecified; Z66 Do not resuscitate; Z68.25 Body mass index [BMI] 25.0-25.9, adult
CPT/HCPCS: 36415; 70450; 71045; 80048; 80076; 81001; 82009; 82947; 82962; 83036; 83690; 83735; 83930; 84100; 84484; 85025; 87641; 93005; 97162; 97166; 97802; 97803; 99285; J7030; J7040; J7050; A4216

== ENCOUNTER → 2017-10-02 12:11 | Outpatient (CLI) | payer MEDICARE, SELFPAY ==
[2017-10-02 16:16] LABS: ALB/GLOB Ratio 0.7 RATIO (0.9-2.4); AST(SGOT) 17 U/L (15-37); Alanine Aminotransfer ALT/SGPT 23 U/L (16-61); Albumin, Serum 3.1 g/dL (3.2-5.0); Alkaline Phosphatase 139 U/L (45-117); Anion Gap 10 (5-15); BUN 21 mg/dL (7-18); BUN/Creat Ratio 32.1 RATIO (10-20); Calcium,Total 9.2 mg/dL (8.5-10.1); Chloride 110 mmol/L (98-107); Creatinine, Serum 0.65 mg/dL (0.70-1.30); EST Glomerular Filtration Rate 126 mL/min (>60); Est Glom Filt Rate - Afr Amer 152 mL/min (>60); Globulin 4.4 g/dL (2.2-4.2); Glucose 156 mg/dL (74-106); Potassium 3.9 mmol/L (3.5-5.1); Protein, Total 7.5 g/dL (6.4-8.2); Sodium Level 142 mmol/L (136-145)
[2017-10-02 16:48] LABS: Hemoglobin A1c 12.3 % (4.2-6.3)
[2017-10-02 17:30] LABS: Osmolality, Serum 301 mOsm/KG (280-301)
== END ==
PROVIDERS: Family Provider Family Medicine; PCP Family Medicine; Visit Provider Family Medicine
DX: E87.0 Hyperosmolality and hypernatremia (principal)
CPT/HCPCS: 36415; 80053; 83036; 83735; 83930

== ENCOUNTER → 2017-10-05 18:22 | Outpatient (CLI) | payer MEDICARE, SELFPAY ==
[2017-10-05 20:08] LABS: Microalbumin,Random Urine 20.6 mg/L (NO RANGE EST.); Microalbumin:Creatinine Ratio 44.2 mg/g CRE (<30 mg/g CRE); Urine Sodium 63 mmol/L (Not Establ.)
[2017-10-05 20:20] LABS: Osmolality, Urine 494 mOsm/KG
== END ==
PROVIDERS: Family Provider Family Medicine; PCP Family Medicine; Visit Provider Family Medicine
DX: E87.0 Hyperosmolality and hypernatremia (principal)
CPT/HCPCS: 82043; 82570; 83935; 84300

== ENCOUNTER → 2018-12-03 | Outpatient (CLI) | payer MEDICARE, SELFPAY ==
[2018-12-03 14:27] LABS: Hematocrit 42.5 % (40-54); Hemoglobin 14.4 g/dl (13.0-16.5); Hemoglobin A1c 7.1 % (4.2-6.3); Mean Corp Hgb Conc 33.9 g/gl (32-36); Mean Corpuscular Hgb 30.6 pg (27.0-32.0); Mean Corpuscular Volume 90.2 fL (80-94); Platelet Count 187 K/mm3 (150-450); RBC Distribution Width CV 13.9 % (11.6-14.6); RBC Distribution Width SD 45.2 fl (35.1-43.9); Red Blood Count 4.71 M/mm3 (4.6-6.2); White Blood Count 4.1 K/mm3 (4.4-11.0)
[2018-12-03 14:30] LABS: Scan Indicated on CBC? Y/N NO
[2018-12-03 14:31] LABS: ALB/GLOB Ratio 0.8 RATIO (0.9-2.4); AST(SGOT) 23 U/L (15-37); Alanine Aminotransfer ALT/SGPT 30 U/L (16-61); Albumin, Serum 3.6 g/dL (3.2-5.0); Alkaline Phosphatase 209 U/L (45-117); Anion Gap 8 (5-15); BUN 18 mg/dL (7-18); BUN/Creat Ratio 27.5 RATIO (10-20); Calcium,Total 9.4 mg/dL (8.5-10.1); Chloride 108 mmol/L (98-107); Cholesterol 197 mg/dL (200); Creatinine, Serum 0.65 mg/dL (0.70-1.30); EST Glomerular Filtration Rate 125 mL/min (>60); Est Glom Filt Rate - Afr Amer 152 mL/min (>60); Globulin 4.5 g/dL (2.2-4.2); Glucose 140 mg/dL (74-106); High Density Lipoprotein 40 mg/dL; Potassium 3.9 mmol/L (3.5-5.1); Protein, Total 8.1 g/dL (6.4-8.2); Sodium Level 143 mmol/L (136-145); Thyroid Stim Hormone (TSH) 1.24 uIU/mL (0.358-3.74); Triglycerides 90 mg/dL; Very Low Density Lipoprotein 18 mg/dL (5-40)
== END | disposition home or self-care (01) ==
LOC: MFPLAB 12:30
PROVIDERS: Family Provider Family Medicine; PCP Family Medicine; Visit Provider Family Medicine
DX: I10 Essential (primary) hypertension (principal); E11.9 Type 2 diabetes mellitus without complications
CPT/HCPCS: 36415; 80053; 80061; 83036; 84443; 85027

== ENCOUNTER → 2019-12-02 | Outpatient (CLI) | payer MEDICARE, SELFPAY ==
--- NOTE | 2019-12-02 16:55 | RAD_ITS ---
STUDY: X-RAY - LUMBAR SPINE REASON FOR EXAM: Male, 79 years old. bilateral lower extremity weakness TECHNIQUE: 5 view(s) of the lumbar spine were obtained. COMPARISON: None FINDINGS: Normal lumbar lordosis. There is no substantial scoliosis. There is a normal alignment of the vertebrae. Normal vertebral bodies and endplates. Normal disc space heights. Left lung paravertebral ossification with preservation of disc spaces within the lower lumbar spine suggestive of diffuse idiopathic skeletal hyperostosis (DISH). The soft tissue structures are unremarkable. RAD/L/S Spine Min 4 Views IMPRESSION: Suspect diffuse idiopathic skeletal hyperostosis (DISH). Electronically Signed: Thanh Aj MD at 6:25 EDT Tel , Service support ,
[2019-12-02 17:56] LABS: Absolute Lymphocyte Count 1.71 X10^3/uL (0.83-4.51); Absolute Neutrophil Count 2.8 X10^3/uL (2.0-7.7); Basophil# 0.03 X10^3/uL; Basophil% 0.6 % (0-1); Eosinophil# 0.08 X10^3/uL; Eosinophils% 1.5 % (0-5); Hematocrit 39.4 % (40-54); Hemoglobin 12.9 g/dL (13.0-16.5); Lymphocyte # 1.71 X10^3/ul (4.0); Lymphocyte % 32.6 % (19-41); Mean Corp Hgb Conc 32.7 g/dL (32-36); Mean Corpuscular Hgb 30.6 pg (27.0-32.0); Mean Corpuscular Volume 93.4 fL (80-94); Mean Platelet Vol. 9.6 fl (6.2-12.0); Monocyte# 0.63 X10^3/uL; NRBC Flagged by Analyzer 0 % (0-5); Neutrophil # 2.78 X10^3/uL (2.7-7.7); Neutrophil % 53.1 % (47-70); Platelet Count 205 K/mm3 (150-450); RBC Distribution Width CV 13.6 % (11.6-14.6); RBC Distribution Width SD 46.1 fl (35.1-43.9); Red Blood Count 4.22 M/mm3 (4.6-6.2); White Blood Count 5.2 K/mm3 (4.4-11.0)
[2019-12-02 18:07] LABS: ALB/GLOB Ratio 0.8 RATIO (0.9-2.4); AST(SGOT) 17 U/L (15-37); Alanine Aminotransfer ALT/SGPT 22 U/L (16-61); Albumin, Serum 3.7 g/dL (3.2-5.0); Alkaline Phosphatase 197 U/L (45-117); Anion Gap 9 (5-15); BUN 32 mg/dL (7-18); BUN/Creat Ratio 46.6 RATIO (10-20); Calcium,Total 9.3 mg/dL (8.5-10.1); Chloride 104 mmol/L (98-107); Creatinine, Serum 0.69 mg/dL (0.70-1.30); EST Glomerular Filtration Rate 118 mL/min (>60); Est Glom Filt Rate - Afr Amer 143 mL/min (>60); Globulin 4.4 g/dL (2.2-4.2); Glucose 115 mg/dL (74-106); Potassium 3.6 mmol/L (3.5-5.1); Protein, Total 8.1 g/dL (6.4-8.2); Sodium Level 138 mmol/L (136-145)
== END | disposition home or self-care (01) ==
LOC: MTLAB 16:37
PROVIDERS: PCP Family Medicine; Referring Provider Registered Nurse
DX: R29.898 Other symptoms and signs involving the musculoskeletal system (principal); R53.1 Weakness
CPT/HCPCS: 36415; 72110; 80053; 85025

== ENCOUNTER → 2020-04-05 08:19 | Outpatient (CLI) | payer MEDICARE, SELFPAY ==
[2020-04-05 10:12] LABS: Absolute Lymphocyte Count 1.54 X10^3/uL (0.83-4.51); Absolute Neutrophil Count 1.7 X10^3/uL (2.0-7.7); Basophil# 0.03 X10^3/uL; Basophil% 0.8 % (0-1); Eosinophil# 0.11 X10^3/uL; Eosinophils% 2.9 % (0-5); Hematocrit 40.6 % (40-54); Hemoglobin 13.1 g/dL (13.0-16.5); Lymphocyte # 1.54 X10^3/ul (4.0); Lymphocyte % 40.3 % (19-41); Mean Corp Hgb Conc 32.3 g/dL (32-36); Mean Corpuscular Hgb 30.3 pg (27.0-32.0); Mean Corpuscular Volume 93.8 fL (80-94); Mean Platelet Vol. 9.7 fl (6.2-12.0); Monocyte# 0.47 X10^3/uL; Monocyte% 12.3 % (0-10); NRBC Flagged by Analyzer 0 % (0-5); Neutrophil # 1.67 X10^3/uL (2.7-7.7); Neutrophil % 43.7 % (47-70); Platelet Count 181 K/mm3 (150-450); RBC Distribution Width SD 48.2 fl (35.1-43.9); Red Blood Count 4.33 M/mm3 (4.6-6.2); White Blood Count 3.8 K/mm3 (4.4-11.0)
[2020-04-05 10:50] LABS: Vitamin B12 408 pg/mL (211-911)
[2020-04-05 11:26] LABS: ALB/GLOB Ratio 0.9 RATIO (0.9-2.4); AST(SGOT) 13 U/L (15-37); Alanine Aminotransfer ALT/SGPT 20 U/L (16-61); Albumin, Serum 3.5 g/dL (3.2-5.0); Alkaline Phosphatase 228 U/L (45-117); Anion Gap 8 (5-15); BUN 31 mg/dL (7-18); Calcium,Total 9.1 mg/dL (8.5-10.1); Chloride 109 mmol/L (98-107); Cholesterol 166 mg/dL (200); Creatinine, Serum 0.63 mg/dL (0.70-1.30); EST Glomerular Filtration Rate 130 mL/min (>60); Est Glom Filt Rate - Afr Amer 157 mL/min (>60); Ferritin 338 ng/mL (26-388); Globulin 4.1 g/dL (2.2-4.2); Glucose 143 mg/dL (74-106); High Density Lipoprotein 32 mg/dL; Potassium 3.5 mmol/L (3.5-5.1); Protein, Total 7.6 g/dL (6.4-8.2); Sodium Level 141 mmol/L (136-145); Triglycerides 97 mg/dL; Uric Acid 7.8 mg/dL (3.5-7.2); Very Low Density Lipoprotein 19 mg/dL (5-40)
== END ==
PROVIDERS: PCP Family Medicine; Referring Provider Family Medicine; Visit Provider Family Medicine
DX: E11.9 Type 2 diabetes mellitus without complications (principal); M10.9 Gout, unspecified; D64.9 Anemia, unspecified; M06.4 Inflammatory polyarthropathy
CPT/HCPCS: 36415; 80053; 80061; 82607; 82728; 82746; 83036; 84550; 85025

== ENCOUNTER → 2020-05-15 | Outpatient (CLI) | payer MEDICARE, SELFPAY ==
[2020-05-15 15:49] LABS: Microalbumin,Random Urine 11.8 mg/L (NO RANGE EST.); Microalbumin:Creatinine Ratio 20.8 mg/g CRE (<30 mg/g CRE)
== END | disposition home or self-care (01) ==
LOC: LABSPEC 11:39
PROVIDERS: PCP Family Medicine; Referring Provider Family Medicine; Visit Provider Family Medicine
DX: I10 Essential (primary) hypertension (principal)
CPT/HCPCS: 82043; 82570

== ENCOUNTER → 2021-02-22 08:57 | Outpatient (CLI) | payer MEDICARE, SELFPAY ==
[2021-02-22 10:08] LABS: Erythrocyte Sedimentation Rate 64 mm/hr (0-20)
[2021-02-22 10:10] LABS: Basophil# 0.03 X10^3/uL; Basophil% 0.7 % (0-1); Eosinophils% 2.3 % (0-5); Hematocrit 40.3 % (40-54); Hemoglobin 13.2 g/dL (13.0-16.5); Lymphocyte % 39.4 % (19-41); Mean Corp Hgb Conc 32.8 g/dL (32-36); Mean Corpuscular Hgb 30.9 pg (27.0-32.0); Mean Corpuscular Volume 94.4 fL (80-94); Mean Platelet Vol. 9.6 fl (6.2-12.0); Monocyte# 0.46 X10^3/uL; Monocyte% 10.6 % (0-10); NRBC Flagged by Analyzer 0 % (0-5); Neutrophil # 2.03 X10^3/uL (2.7-7.7); Platelet Count 194 K/mm3 (150-450); RBC Distribution Width CV 13.4 % (11.6-14.6); RBC Distribution Width SD 46.2 fl (35.1-43.9); Red Blood Count 4.27 M/mm3 (4.6-6.2); White Blood Count 4.3 K/mm3 (4.4-11.0)
[2021-02-22 10:22] LABS: Vitamin D,25 Hydroxy 20.2 ng/mL
[2021-02-22 10:36] LABS: ALB/GLOB Ratio 0.7 RATIO (0.9-2.4); AST(SGOT) 12 U/L (15-37); Alanine Aminotransfer ALT/SGPT 17 U/L (16-61); Albumin, Serum 3.4 g/dL (3.2-5.0); Alkaline Phosphatase 235 U/L (45-117); Anion Gap 7 (5-15); BUN 35 mg/dL (7-18); BUN/Creat Ratio 47.3 RATIO (10-20); Calcium,Total 9.4 mg/dL (8.5-10.1); Chloride 107 mmol/L (98-107); Cholesterol 173 mg/dL (200); Creatinine, Serum 0.74 mg/dL (0.70-1.30); EST Glomerular Filtration Rate 108 mL/min (>60); Est Glom Filt Rate - Afr Amer 131 mL/min (>60); Ferritin 404 ng/mL (26-388); Globulin 4.7 g/dL (2.2-4.2); Glucose 147 mg/dL (74-106); High Density Lipoprotein 37 mg/dL; Potassium 3.8 mmol/L (3.5-5.1); Protein, Total 8.1 g/dL (6.4-8.2); Sodium Level 140 mmol/L (136-145); Triglycerides 75 mg/dL; Very Low Density Lipoprotein 15 mg/dL (5-40)
== END ==
PROVIDERS: PCP Family Medicine; Referring Provider Family Medicine; Visit Provider Family Medicine
DX: M06.4 Inflammatory polyarthropathy (principal); I10 Essential (primary) hypertension; E11.9 Type 2 diabetes mellitus without complications; D64.9 Anemia, unspecified
CPT/HCPCS: 36415; 80053; 80061; 82306; 82728; 85025; 85652

== ENCOUNTER → 2021-02-28 14:43 | Outpatient (CLI) | payer MEDICARE, SELFPAY ==
[2021-02-28 18:05] LABS: Absolute Lymphocyte Count 1.91 X10^3/uL (0.83-4.51); Absolute Neutrophil Count 1.8 X10^3/uL (2.0-7.7); Basophil# 0.03 X10^3/uL; Basophil% 0.7 % (0-1); Eosinophil# 0.11 X10^3/uL; Eosinophils% 2.5 % (0-5); Hematocrit 38.8 % (40-54); Hemoglobin 12.7 g/dL (13.0-16.5); Lymphocyte # 1.91 X10^3/ul (0.83-4.51); Lymphocyte % 43.1 % (19-41); Mean Corp Hgb Conc 32.7 g/dL (32-36); Mean Corpuscular Hgb 30.7 pg (27.0-32.0); Mean Corpuscular Volume 93.7 fL (80-94); Mean Platelet Vol. 9.8 fl (6.2-12.0); Monocyte# 0.57 X10^3/uL; Monocyte% 12.9 % (0-10); NRBC Flagged by Analyzer 0 % (0-5); Neutrophil % 40.6 % (47-70); Platelet Count 197 K/mm3 (150-450); RBC Distribution Width CV 13.2 % (11.6-14.6); RBC Distribution Width SD 45.2 fl (35.1-43.9); Red Blood Count 4.14 M/mm3 (4.6-6.2); White Blood Count 4.4 K/mm3 (4.4-11.0)
[2021-02-28 18:15] LABS: Erythrocyte Sedimentation Rate 61 mm/hr (0-20)
[2021-02-28 18:21] LABS: CPK Total, Creatine Kinase 62 U/L (39-308)
[2021-02-28 18:30] LABS: Microalbumin,Random Urine 8.6 mg/L (NO RANGE EST.); Microalbumin:Creatinine Ratio 19.3 mg/g CRE (<30 mg/g CRE)
== END ==
PROVIDERS: PCP Family Medicine; Referring Provider Family Medicine; Visit Provider Family Medicine
DX: E11.9 Type 2 diabetes mellitus without complications (principal); M06.4 Inflammatory polyarthropathy; I10 Essential (primary) hypertension
CPT/HCPCS: 36415; 82043; 82550; 82570; 85025; 85652; 86038; 86141

== ENCOUNTER → 2021-03-15 08:06 | Outpatient (CLI) | payer MEDICARE, SELFPAY ==
[2021-03-15 10:12] LABS: Erythrocyte Sedimentation Rate 55 mm/hr (0-20)
== END ==
PROVIDERS: PCP Family Medicine; Referring Provider Family Medicine; Visit Provider Family Medicine
DX: R76.8 Other specified abnormal immunological findings in serum (principal)
CPT/HCPCS: 36415; 85652; 86140

== ENCOUNTER → 2021-04-17 08:19 | Outpatient (CLI) | payer MEDICARE, SELFPAY ==
[2021-04-17 10:16] LABS: Erythrocyte Sedimentation Rate 72 mm/hr (0-20)
[2021-04-17 10:39] LABS: CRP 7.27 mg/L (0.0-3.0)
== END ==
PROVIDERS: PCP Family Medicine; Referring Provider Family Medicine; Visit Provider Family Medicine
DX: R76.8 Other specified abnormal immunological findings in serum (principal)
CPT/HCPCS: 36415; 85652; 86140

== ENCOUNTER 2021-08-22 15:47 | Outpatient (CLI) | payer MEDICARE, SELFPAY ==
[2021-08-22 17:54] LABS: Absolute Lymphocyte Count 1.34 X10^3/uL (0.83-4.51); Absolute Neutrophil Count 2.2 X10^3/uL (2.0-7.7); Basophil# 0.03 X10^3/uL; Basophil% 0.7 % (0-1); Eosinophil# 0.09 X10^3/uL; Eosinophils% 2.2 % (0-5); Hemoglobin 13.3 g/dL (13.0-16.5); Lymphocyte # 1.34 X10^3/ul (0.83-4.51); Lymphocyte % 32.4 % (19-41); Mean Corp Hgb Conc 32.4 g/dL (32-36); Mean Corpuscular Hgb 30.5 pg (27.0-32.0); Mean Platelet Vol. 9.8 fl (6.2-12.0); Monocyte# 0.48 X10^3/uL; Monocyte% 11.6 % (0-10); NRBC Flagged by Analyzer 0 % (0-5); Neutrophil # 2.18 X10^3/uL (2.7-7.7); Neutrophil % 52.9 % (47-70); Platelet Count 215 K/mm3 (150-450); RBC Distribution Width CV 13.2 % (11.6-14.6); RBC Distribution Width SD 45.1 fl (35.1-43.9); Red Blood Count 4.36 M/mm3 (4.6-6.2); White Blood Count 4.1 K/mm3 (4.4-11.0)
[2021-08-22 18:10] LABS: ALB/GLOB Ratio 0.8 RATIO (0.9-2.4); AST(SGOT) 18 U/L (15-37); Alanine Aminotransfer ALT/SGPT 26 U/L (16-61); Albumin, Serum 3.7 g/dL (3.2-5.0); Alkaline Phosphatase 245 U/L (45-117); Anion Gap 6 (5-15); BUN 26 mg/dL (7-18); BUN/Creat Ratio 39.9 RATIO (10-20); Calcium,Total 9.5 mg/dL (8.5-10.1); Chloride 105 mmol/L (98-107); Cholesterol 179 mg/dL (200); Creatinine, Serum 0.65 mg/dL (0.70-1.30); EST Glomerular Filtration Rate 125 mL/min (>60); Est Glom Filt Rate - Afr Amer 151 mL/min (>60); Globulin 4.6 g/dL (2.2-4.2); Glucose 142 mg/dL (74-106); High Density Lipoprotein 40 mg/dL; Potassium 3.9 mmol/L (3.5-5.1); Protein, Total 8.3 g/dL (6.4-8.2); Rheumatoid Factor < 10.0 IU/mL (<15); Sodium Level 138 mmol/L (136-145); Triglycerides 68 mg/dL; Very Low Density Lipoprotein 14 mg/dL (5-40)
[2021-08-22 18:18] LABS: Hemoglobin A1c 6.9 % (3.8-5.6)
== END 2021-08-22 23:59 | disposition home or self-care (01) ==
LOC: MFPLAB 15:48
PROVIDERS: PCP Family Medicine; Referring Provider Family Medicine; Visit Provider Family Medicine
DX: E11.9 Type 2 diabetes mellitus without complications (principal); C22.1 Intrahepatic bile duct carcinoma; M06.4 Inflammatory polyarthropathy; R76.8 Other specified abnormal immunological findings in serum; I10 Essential (primary) hypertension
CPT/HCPCS: 36415; 80053; 80061; 83036; 85025; 86038; 86225; 86235; 86431

== ENCOUNTER → 2022-02-14 | Outpatient (CLI) | payer MEDICARE, SELFPAY ==
[2022-02-14 12:23] LABS: Absolute Lymphocyte Count 1.33 X10^3/uL (0.83-4.51); Absolute Neutrophil Count 2.7 X10^3/uL (2.0-7.7); Basophil# 0.03 X10^3/uL; Basophil% 0.7 % (0-1); Eosinophil# 0.11 X10^3/uL; Eosinophils% 2.4 % (0-5); Hematocrit 40.7 % (40-54); Hemoglobin 13.4 g/dL (13.0-16.5); Lymphocyte # 1.33 X10^3/ul (0.83-4.51); Lymphocyte % 29.5 % (19-41); Mean Corp Hgb Conc 32.9 g/dL (32-36); Mean Corpuscular Hgb 31.1 pg (27.0-32.0); Mean Corpuscular Volume 94.4 fL (80-94); Mean Platelet Vol. 9.9 fl (6.2-12.0); Monocyte# 0.38 X10^3/uL; Monocyte% 8.4 % (0-10); NRBC Flagged by Analyzer 0 % (0-5); Neutrophil # 2.65 X10^3/uL (2.7-7.7); Neutrophil % 58.8 % (47-70); Platelet Count 213 K/mm3 (150-450); RBC Distribution Width CV 14.3 % (11.6-14.6); RBC Distribution Width SD 49.9 fl (35.1-43.9); Red Blood Count 4.31 M/mm3 (4.6-6.2); White Blood Count 4.5 K/mm3 (4.4-11.0)
[2022-02-14 12:37] LABS: Microalbumin,Random Urine 11.2 mg/L (NO RANGE EST.); Microalbumin:Creatinine Ratio 34.5 mg/g CRE (<30 mg/g CRE)
[2022-02-14 13:00] LABS: ALB/GLOB Ratio 0.7 RATIO (0.9-2.4); AST(SGOT) 16 U/L (15-37); Alanine Aminotransfer ALT/SGPT 24 U/L (16-61); Albumin, Serum 3.6 g/dL (3.2-5.0); Alkaline Phosphatase 252 U/L (45-117); Anion Gap 10 (5-15); BUN 40 mg/dL (7-18); BUN/Creat Ratio 47.2 RATIO (10-20); Calcium,Total 9.5 mg/dL (8.5-10.1); Chloride 105 mmol/L (98-107); Cholesterol 174 mg/dL (200); Creatinine, Serum 0.85 mg/dL (0.70-1.30); EST Glomerular Filtration Rate 92 mL/min (>60); Est Glom Filt Rate - Afr Amer 111 mL/min (>60); Glucose 153 mg/dL (74-106); High Density Lipoprotein 39 mg/dL; Potassium 4.1 mmol/L (3.5-5.1); Protein, Total 8.6 g/dL (6.4-8.2); Sodium Level 139 mmol/L (136-145); Thyroid Stim Hormone (TSH) 1.59 uIU/mL (0.358-3.74); Triglycerides 59 mg/dL; Very Low Density Lipoprotein 12 mg/dL (5-40)
[2022-02-17 18:08] LABS: SJOGREN'S Anti-SS-A test 6.7 AI (0.0-0.9)
[2022-02-18 13:58] LABS: SJOGREN'S Anti-SS-B test < 0.2 AI (0.0-0.9)
== END | disposition home or self-care (01) ==
LOC: MFPLAB 09:22
PROVIDERS: PCP Family Medicine; Referring Provider Family Medicine; Visit Provider Family Medicine
DX: I10 Essential (primary) hypertension (principal); M35.03 Sjogren syndrome with myopathy; E11.8 Type 2 diabetes mellitus with unspecified complications
CPT/HCPCS: 36415; 80053; 80061; 82043; 82570; 84443; 85025; 86140; 86235

== ENCOUNTER 2022-09-26 09:01 | Outpatient (CLI) | payer MEDICARE, SELFPAY ==
[2022-09-26 10:20] LABS: Absolute Lymphocyte Count 1.37 X10^3/uL (0.83-4.51); Absolute Neutrophil Count 3.3 X10^3/uL (2.0-7.7); Basophil# 0.03 X10^3/uL; Basophil% 0.5 % (0-1); Eosinophil# 0.13 X10^3/uL; Eosinophils% 2.4 % (0-5); Hematocrit 37.8 % (40-54); Hemoglobin 12.4 g/dL (13.0-16.5); Lymphocyte # 1.37 X10^3/ul (0.83-4.51); Lymphocyte % 25.1 % (19-41); Mean Corp Hgb Conc 32.8 g/dL (32-36); Mean Corpuscular Hgb 31.8 pg (27.0-32.0); Mean Corpuscular Volume 96.9 fL (80-94); Mean Platelet Vol. 9.6 fl (6.2-12.0); Monocyte# 0.59 X10^3/uL; Monocyte% 10.8 % (0-10); NRBC Flagged by Analyzer 0 % (0-5); Neutrophil # 3.33 X10^3/uL (2.7-7.7); Platelet Count 188 K/mm3 (150-450); RBC Distribution Width CV 14.3 % (11.6-14.6); RBC Distribution Width SD 51.3 fl (35.1-43.9); White Blood Count 5.5 K/mm3 (4.4-11.0)
[2022-09-26 10:49] LABS: Vitamin D,25 Hydroxy 37.9 ng/mL
[2022-09-26 10:52] LABS: ALB/GLOB Ratio 0.7 RATIO (0.9-2.4); AST(SGOT) 14 U/L (15-37); Alanine Aminotransfer ALT/SGPT 18 U/L (16-61); Albumin, Serum 3.4 g/dL (3.2-5.0); Alkaline Phosphatase 205 U/L (45-117); Anion Gap 10 (5-15); BUN 24 mg/dL (7-18); BUN/Creat Ratio 33.4 RATIO (10-20); Calcium,Total 9.5 mg/dL (8.5-10.1); Chloride 106 mmol/L (98-107); Cholesterol 167 mg/dL (200); Creatinine, Serum 0.72 mg/dL (0.70-1.30); EST Glomerular Filtration Rate 111 mL/min (>60); Est Glom Filt Rate - Afr Amer 135 mL/min (>60); Globulin 4.9 g/dL (2.2-4.2); Glucose 150 mg/dL (74-106); High Density Lipoprotein 37 mg/dL; Potassium 3.9 mmol/L (3.5-5.1); Protein, Total 8.3 g/dL (6.4-8.2); Sodium Level 140 mmol/L (136-145); Thyroid Stim Hormone (TSH) 3.03 uIU/mL (0.358-3.74); Triglycerides 81 mg/dL; Very Low Density Lipoprotein 16 mg/dL (5-40)
[2022-09-29 15:08] LABS: Carbohydrate Ag 19-9 2261 19 U/mL (0-35); Carcinoembryonic Antigen 2.7 ng/mL (0.0-4.7)
[2022-10-02 16:09] LABS: PROEL- A/G Ratio 1.4 (0.7-1.7); PROEL- Albumin 4.6 g/dL (2.9-4.4); PROEL- Alpha-1 Globulin 0.3 g/dL (0.0-0.4); PROEL- Alpha-2 Globulin 0.8 g/dL (0.4-1.0); PROEL- Beta Globulin 1.2 g/dL (0.7-1.3); PROEL- Gamma Globulin 0.9 g/dL (0.4-1.8); PROEL- Globulin, Total 3.2 g/dL (2.2-3.9); PROEL- TOTAL PROTEIN 7.8 g/dL (6.0-8.5)
== END 2022-09-26 23:59 | disposition home or self-care (01) ==
LOC: MFPLAB 09:11
PROVIDERS: PCP Family Medicine; Visit Provider Family Medicine
DX: R74.8 Abnormal levels of other serum enzymes (principal); E11.8 Type 2 diabetes mellitus with unspecified complications
CPT/HCPCS: 36415; 80053; 80061; 82306; 82378; 84165; 84443; 85025; 86301

== ENCOUNTER 2023-05-28 21:09 | Emergency (ER) | payer MEDICARE, SELFPAY ==
[2023-05-28 21:10] VITALS: BP 173/84; PULSE 67; RESP 16; TEMP 36.3; O2SAT 100; BMI 27.4
[2023-05-28 21:30] VITALS: BP 159/81; O2SAT 99
--- OUTSIDE RECORDS SUMMARY | 2023-05-28 21:43 | XMS RPT_ITS | CCD ---
Author Name Unknown Address [address] [place] [id number] Organization [facility] Results Test Name Value Interpretation Reference Range Facil ity Progress note 05-29-2021 Note Date & Type Note Facility 05-29-2021 Note HNO ID: [id number] Author: RT Syed(R) Service: ? Author Type: Ropewalk Rope Maker Type: Progress Notes Filed: 05/29/2021 1:34 PM Note Text: Radiology Service Progress Note DATE OF SERVICE: May 29, 2021 TIME: 1:33 PM PATIENT IDENTITY VERIFICATION COMPLETED USING TWO (2) STANDARD IDENTIFIERS: Name and Date of confirmed by patient verbally. FALL SCREENING: Has the patient had 2 falls in the last year or 1 fall with injury or currently using an Ambulatory Assistive Device (Walker, Cane, Wheelchair, Crutches, etc.)? No PATIENT GENDER DATA: Male PATIENT RELEVANT IMPLANT DATA REVIEWED: Yes ALLERGIES: Reviewed and unchanged CONTRAST ALLERGY: NO. EXAM: CT -CONTRAST INDUCED NEPHROPATHY RISK FACTORS: Patient age > 60 years CREATININE: Creatinine Date Value Ref Range Status 05/29/2021 0.59 (L) 0.73 - 1.22 mg/dL Final 04/02/2021 0.74 0.73 - 1.22 mg/dL Final 10/10/2020 0.61 (L) 0.73 - 1.22 mg/dL Final eGFR-All Other Races Date Value Ref Range Status 05/29/2021 >60 . Final Comment: eGFR (Estimated GFR) Units of measure: mL/min/1.73 meters squared eGFR is derived from the reexpressed MDRD Study equation using the following parameters: serum creatinine, age, gender and race. The creatinine assay has been calibrated to be traceable to IDMS. An eGFR <60 mL/min/1.73m2 for >3 months is consistent with chronic kidney disease. Refer to KDOQI guidelines for clinical interpretation. In patients with unstable renal function, e.g. those with acute kidney injury, the eGFR may not accurately reflect actual GFR. Note: On 07/20/2021, the eGFR calculation will be updated to the NKF-ASN Task Force recommended 2020 CKD-EPI creatinine equation which does not include a race variable. For more information or to access a 2020 CKD-EPI calculator, visit the National Kidney [employer] website at kidney.org/professionals/kdoqi/gfr_calcul ator. eGFR- Date Value Ref Range Status 05/29/2021 >60 Final P.O.C.T. RESULTS: POC done: Yes, See Lab Tab May 29, 2021 TREATMENT: N/A PERIPHERAL IV DATA: Ambulatory: A peripheral IV was started in the Left hand with a Angio cath: 22 gauge. RADIOLOGY DEPARTMENT: CT; Exam(s) Completed: Abdomen and Chest SIGNATURE: RT Phyllis(R) PATIENT NAME: Enoch Gao DATE: May 29, 2021 TIME: 1:33 PM [facility] Progress note 04-02-2021 Note Date & Type Note Facility 04-02-2021 Note HNO ID: [id number] Author: Anay Borges APRN.TITLE 1 TUTOR Service: ? Author Type: Nurse Practitioner Type: Progress Notes Filed: 04/04/2021 1:15 PM Note Text: Chief Complaint Patient presents with: Established Patient HPI: Enoch Gao is a 80 year old male who presents here today for follow up cholangiocarcinoma. Per Dr. Robin's previous note: H/o?hypertension and type 2 diabetes. He was admitted to [facility] on 11/18/16 after he presented to the emergency department with a complaint of mid abdominal pain that had been going on for about 48 hours. He had nausea associated with the pain. He denied diarrhea. He had one episode of emesis and denied hematemesis and hematochezia. Initial laboratory enzymes showed elevated liver enzymes as well as an elevated amylase level. CT of the abdomen showed evidence of pancreatitis with multiple gallstones. Patient was admitted to the PCU. Patient was seen in consultation with Gen. surgery. On hospital day 2, bilirubin decreased. Other LFTs were normal. It was thought that he perhaps had gallstone-induced pancreatitis. He therefore underwent a laparoscopic cholecystectomy with attempted cholangiogram on 11/19/2016. ? The patient was observed to have several white studying areas on the omentum and peritoneum. Multiple biopsies were obtained. Frozen pathology revealed fat necrosis. The patient therefore went on to have cholecystectomy. Catheter was not able to be introduced into the cystic duct due to inflammation. Cholangiogram was not able to be obtained. The remainder the surgery was reportedly uneventful and the gallbladder was successfully removed. ? FROZEN SECTION DIAGNOSIS A. ?Omental nodule, biopsy: ?Consistent with fat necrosis. ?No evidence of malignancy. B. ?Peritoneal nodule, biopsy: ?Fat necrosis. ? Case has been reviewed in consultation with Dr. Valverde who concurs with the above diagnosis. IDC:SJ ? MICROSCOPIC DIAGNOSIS A. ?Omental nodule, biopsy: ?A piece of adipose tissue with acute fat necrosis and associated acute inflammation. ?Negative for malignancy in the submitted specimen. B. ?Peritoneal nodule, biopsy: ?A piece of adipose tissue with acute fat necrosis and associated acute inflammation. Negative for malignancy in the submitted specimen. C. ?Omental nodule: ?Pieces of adipose tissue with focal fat necrosis and associated acute inflammation. ?Negative for malignancy in the submitted specimen. D. 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 ?Chronic cholecystitis and cholelithiasis. ? GALLBLADDER CARCINOMA SUMMARY: ??Specimen - gallbladder ??Procedure ??simple cholecystectomy ??Tumor site ??cannot be determined ??Tumor size ??greatest dimension 0.3 cm. ?See comment. ??Histologic type - adenocarcinoma ??Histologic grade ??grade 2, moderately differentiated ??Microscopic tumor extension ??tumor invades muscle layer ??Margins ??margins uninvolved by invasive carcinoma ??Lymph-Vascular invasion ??not identified ??Perineural invasion ??not identified ??Regional lymph node ??no nodes submitted or found ??Additional pathologic findings ??multifocal dysplasia ?- Tubulovillous adenoma with focal high grade dysplasia. ?- Chronic cholecystitis and cholelithiasis. ??Ancillary studies ??not performed ??Clinical history ??gallstone pancreatitis ?PATHOLOGIC STAGE: ?pT1b ?pNx ?M0 ? COMMENT The invasive tumor is noted in the random section. ?The tumor size is estimated on the microscopic slide. ? DIAGNOSIS CYTOLOGY Peritoneal fluid for cytology (cytospin and cell block): ?Negative for malignant cells. ?Acute inflammation. ? ? - ? Patient underwent a CT scan of the chest abdomen and pelvis on 01/05/2017 [facility]. On a chest CT there was a 6 mm nodule in the anterior segment of the right upper lobe. There was a 5 mm nodule subpleural in location in the right lower lung zone. No other nodules were visualized. The CT scan the abdomen and pelvis demonstrated no evidence of metastatic disease in the abdomen or pelvis. ? Previous treatment: 1) 5-FU infusion (substitution for Capecitabine-adjuvant chemotherapy). Capecitabine not affordable.?Completed 09/01/2017. ? No new concerns today. ? Appetite: It's good. Energy level: I have it when I want it. Denies fevers?or recent illness. Resp:denies cough or sob Cardiac:denies chest pain/palpitations GI:denies abd pain, n/v, moving bowels reg (more content not included)... [facility] Progress note 10-10-2020 Note Date & Type Note Facility 10-10-2020 Note HNO ID: [id number] Author: Tanya Lynch Service: ? Author Type: Ropewalk Rope Maker Type: Progress Notes Filed: 10/10/2020 2:15 PM Note Text: Radiology Service Progress Note DATE OF SERVICE: October 10, 2020 TIME: 2:15 PM PATIENT IDENTITY VERIFICATION COMPLETED USING TWO (2) STANDARD IDENTIFIERS: Name and Date of confirmed by patient verbally. FALL SCREENING: Has the patient had 2 falls in the last year or 1 fall with injury or currently using an Ambulatory Assistive Device (Walker, Cane, Wheelchair, Crutches, etc.)? No PATIENT GENDER DATA: Male PATIENT RELEVANT IMPLANT DATA REVIEWED: Yes ALLERGIES: Reviewed and unchanged CONTRAST ALLERGY: NO. EXAM: CT -CONTRAST INDUCED NEPHROPATHY RISK FACTORS: Patient age > 60 years CREATININE: Creatinine Date Value Ref Range Status 10/10/2020 0.61 (L) 0.73 - 1.22 mg/dL Final 06/29/2020 0.63 (L) 0.73 - 1.22 mg/dL Final 12/28/2019 0.56 (L) 0.73 - 1.22 mg/dL Final eGFR-All Other Races Date Value Ref Range Status 10/10/2020 >60 . Final Comment: eGFR (Estimated GFR) Units of measure: mL/min/1.73 meters squared eGFR is derived from the reexpressed MDRD Study equation using the following parameters: serum creatinine, age, gender and race. The creatinine assay has been calibrated to be traceable to IDMS. An eGFR <60 mL/min/1.73m2 for >3 months is consistent with chronic kidney disease. Refer to KDOQI guidelines for clinical interpretation. In patients with unstable renal function, e.g. those with acute kidney injury, the eGFR may not accurately reflect actual GFR. eGFR- Date Value Ref Range Status 10/10/2020 >60 Final P.O.C.T. RESULTS: POC done: Yes, See Lab Tab October 10, 2020 TREATMENT: N/A PERIPHERAL IV DATA: Ambulatory: A peripheral IV was started in the Left antecubital site with a Angio cath: 22 gauge. RADIOLOGY DEPARTMENT: CT; Exam(s) Completed: Chest Abdomen Pelvis SIGNATURE: Tanya Ferguson PATIENT NAME: Enoch Gao DATE: October 10, 2020 TIME: 2:15 PM [facility] Summary Purpose Family History No Family History Records Found Advance Directives No Advanced Directives Records Found Additional Source Comments (unrecognized sect ion and content) No Status Records Found INFORMATION SOURCE (unrecogn ized section and content) FOR RECORDS PERTAINING TO PATIENTS WHO ARE OR HAVE BEEN ENROLLED IN A CHEMICAL DEPENDENCY/SUBSTANCEABUSE PROGRAM, SOME INFORMATION MAY BE OMITTED. This clinical summary was aggregated from multiple sources. Caution should be exercised in using it in the provision of clinical care. This summary normalizes information from multiple sources, and as a consequence, information in this document may materially change the coding, format and clinical context of patient data. In addition, data may be omitted in some cases. CLINICAL DECISIONS SHOULD BE BASED ON THE PRIMARY CLINICAL RECORDS. [facility] [employer] [facility]. provides no warranty or guarantee of the accuracy or completeness of information in this document.
--- NOTE | 2023-05-28 21:55 | RAD_ITS ---
EXAM: XR CHEST, 1 VIEW CLINICAL INDICATION: weakness TECHNIQUE: Frontal view of the chest. COMPARISON: September 20, 2017 with right jugular [id number] catheter. FINDINGS: LUNGS AND PLEURAL SPACES: The lungs are better inflated, they appear mildly hyperinflated. There is a transverse band of opacity at the right lung base over the right hemidiaphragm, likely a thick band of discoid atelectasis. Slight blunting of the right lateral costophrenic angle. No pneumothorax. No effusion. HEART: Unremarkable. Cardiac silhouette not enlarged. MEDIASTINUM: Central airways and mediastinal contour are unremarkable. BONES/JOINTS: Moderate thoracic spondylosis. No acute fracture. SOFT TISSUES: Unremarkable. RAD/Chest 1 View (Portable) IMPRESSION: Thick transverse band of increased soft tissue density at the right lung base. Most likely discoid atelectasis, despite mild pulmonary hyperinflation, but cannot exclude infiltrate. Electronically Signed: Nia Edward MD at 22:15 EST ,
[2023-05-28 22:00] VITALS: BP 183/97; PULSE 73; O2SAT 98
[2023-05-28 22:05] LABS: Absolute Lymphocyte Count 1.13 X10^3/uL (0.83-4.51); Basophil# 0.03 X10^3/uL; Basophil% 0.8 % (0-1); Eosinophil# 0.11 X10^3/uL; Hematocrit 36.3 % (40-54); Hemoglobin 11.7 g/dL (13.0-16.5); Lymphocyte # 1.13 X10^3/ul (0.83-4.51); Mean Corp Hgb Conc 32.2 g/dL (32-36); Mean Corpuscular Hgb 31.2 pg (27.0-32.0); Mean Corpuscular Volume 96.8 fL (80-94); Mean Platelet Vol. 9.1 fl (6.2-12.0); Monocyte# 0.42 X10^3/uL; Monocyte% 11.5 % (0-10); NRBC Flagged by Analyzer 0 % (0-5); Neutrophil # 1.95 X10^3/uL (2.7-7.7); Neutrophil % 53.4 % (47-70); Platelet Count 190 K/mm3 (150-450); RBC Distribution Width CV 14.2 % (11.6-14.6); RBC Distribution Width SD 50.2 fl (35.1-43.9); Red Blood Count 3.75 M/mm3 (4.6-6.2); White Blood Count 3.7 K/mm3 (4.4-11.0)
--- NOTE | 2023-05-28 22:05 | EDS_ITS ---
HPI History of Present Illness Chief Complaint: Weakness Narrative Narrative: 82-year-old male presenting with weakness. Patient states he is not sure why. Patient states he has not been able to walk much today. He was able to get to the restroom but when he came back to the kitchen table he was unable to get up from the table. He denies any headache, nauseousness, dizziness, slurred speech, confusion. Denies chest pain, palpitations, shortness of breath. He has no cough, fever, chills. Denies urinary complaints. Patient states he just feels generally weak. Patient states his was in the hospital couple weeks ago but he does not know when she was in here for. Patient has no complaints at this time except for generalized weakness PFSH [facility] Medical History Acute pancreatitis BRIELLE (acute kidney injury) Anasarca Diabetes mellitus Encounter for adjustment or management of vascular access device Gallbladder carcinoma Gallstone pancreatitis Hyperglycemia Hypertension Hypokalemia Hyponatremia Protein malnutrition Psoriasis Shortness of breath Home Medications aspirin 81 mg chewable tablet 81 mg PO DAILY@0800 heart health 11/18/16 [History Last Taken 12/01/16 10:56] carvedilol 25 mg tablet 12.5 mg PO BID heart, blood pressure 11/18/16 [History Last Taken 01/29/17] sennosides 8.6 mg tablet 1 tab PO BID PRN PRN Constipation 03/09/17 [History Last Taken Unknown] lisinopril 40 mg tablet 40 mg PO DINNER htn 09/21/17 [History Last Taken Unknown] iron, carbonyl 45 mg tablet 45 mg PO DAILYCM #30 caps 09/22/17 [Rx Last Taken Unknown] insulin aspart U-100 100 unit/mL (3 mL) subcutaneous pen 5 units (0.05 mL) subcut BREAKFAST 09/23/17 [Rx Last Taken Unknown] insulin aspart U-100 100 unit/mL (3 mL) subcutaneous pen 5 units (0.05 mL) subcut DINNER 09/23/17 [Rx Last Taken Unknown] insulin aspart U-100 100 unit/mL (3 mL) subcutaneous pen 5 units (0.05 mL) subcut LUNCH 09/23/17 [Rx Last Taken Unknown] insulin detemir U-100 100 unit/mL (3 mL) subcutaneous pen 20 units (0.2 mL) subcut QHS 09/23/17 [Rx Last Taken Unknown] Allergy/AdvReac Type Severity Reaction Status Date / Time No Known Allergies Allergy Verified 05/28/23 21:18 Social History Smoking Status: Former smoker ROS ROS ED ROS Narrative Generalized weakness Constitutional Constitutional ED: Denies chills, fever(s) or sweats Eyes Eyes: Denies blurry vision or change in vision ENT ENT ED: Denies ear pain or sore throat Cardiovascular Cardiovascular: Denies chest pain, palpitations or racing heartbeat Respiratory/Chest Respiratory/Chest: Denies cough, dyspnea or sputum Gastrointestinal Gastrointestinal: Denies abdominal pain, constipation, diarrhea, nausea or vomiting Genitourinary Genitourinary ED: Denies dysuria, hematuria or urinary frequency Musculoskeletal Musculoskeletal: Denies arthralgias, myalgias or neck pain Integumentary Denies abscess, Abrasions or rash Neurologic Neurologic: Denies headache(s), paresthesias or weakness Psychiatric Psychiatric: Denies anxiety, depression, suicidal ideation or suicidal thoughts Endocrine Endocrinology: Denies polydipsia or polyuria EXAM Physical Exam Const Vital Signs: 05/28/23 21:10 05/28/23 21:18 Temperature 97.3 F L Temperature Source Temporal Pulse Rate 67 Respiratory Rate 16 Respiratory Effort Normal Non-Labored Respiratory Pattern Normal Blood Pressure 173/84 H Blood Pressure Mean 113 Pulse Ox 100 Oxygen Delivery Method Room Air Positive well nourished General Appearance ED: NAD; Negative for pallor HEENT Reports moist mucous membranes Eyes PERRL and EOMs intact bilaterally Chest Wall inspection of chest normal Resp normal respiratory effort and clear to auscultation bilaterally Auscultation: Negative for rales, rhonchi or wheezes Cardio regular rate and regular rhythm GI normal to inspection, nondistended, normoactive bowel sounds Neuro oriented x3 Motor Exam: strength 5/5 throughout Psych mental status grossly normal Skin no rashes or lesions noted and no wounds General Skin Exam: Negative for jaundice or pallor MDM MDM MDM Narrative Medical decision making narrative: Presented with generalized weakness. Patient has no significant other complaints. Differential includes dehydration, anemia, dysrhythmia, electrolyte abnormalities, COVID, flu, RSV, ACS, pneumonia. IV was established. Patient was given a liter of IV fluids. CBC shows no leukocytosis with white blood count of 3.7. This is near baseline. Hemoglobin is 11.7. Platelets 190. Renal function at baseline. Electrolytes are normal. LFTs unremarkable with exception of alkaline phosphatase 197. Sensitivity troponin is 13. EKG sinus rhythm without evidence of ischemia on my interpretation. X-ray my interpretation is no acute process. The radiologist read this as atelectasis but cannot rule out infiltrate although patient does not cough. Is under percent on room air. White blood cell count is low. I do not believe he has pneumonia. Patient was ambulated in the room and did so well with a walker. He states this is his baseline. Discussed with him at length his options. He states that he feels well enough to go home and he has helped here. He was offered admission if he felt too weak to go home and he states he does want to go home. Patient then asked me if he knows anybody that we will do housecalls for his toenail trimming's and he does have fairly large toenails. I will refer him to podiatry. Impression: 1. Weakness 2. Dehydration Lab Data Attestation: I reviewed the patient's lab results. Labs: Laboratory Results - last 24 hr 05/28/23 05/28/23 21:46 22:00 WBC 3.7 L RBC 3.75 L Hgb 11.7 L Hct 36.3 L MCV 96.8 H MCH 31.2 MCHC 32.2 RDW Std Deviation 50.2 H RDW Coeff of Manuel 14.2 Plt Count 190 MPV 9.1 Immature Gran % (Auto) 0.300 Neut % (Auto) 53.4 Lymph % (Auto) 31.0 [place] % (Auto) 11.5 H Eos % (Auto) 3.0 Baso % (Auto) 0.8 Absolute Neuts (auto) 2.0 Absolute Lymphs (auto) 1.13 Nucleated RBC % 0 Sodium 142 Potassium 3.9 Chloride 107 Carbon Dioxide 28.0 Anion Gap 7 BUN 36 H Creatinine 0.68 L Estim Creat Clear Calc 56.95 Est GFR (MDRD) Af Amer 144 Est GFR (MDRD) Non-Af 119 BUN/Creatinine Ratio 53.0 H Glucose 131 H Calcium 10.2 H Total Bilirubin 0.30 AST 11 L ALT 15 L Alkaline Phosphatase 197 H Troponin I High Sens 13 Total Protein 7.7 Albumin 3.3 Globulin 4.4 H Albumin/Globulin Ratio 0.8 L POC Glucose 121 H Radiography Diagnostic Testing: Clinical Impression(s) from Imaging Studies Chest X-Ray 05/28/23 21:55 IMPRESSION: Thick transverse band of increased soft tissue density at the right lung base. Most likely discoid atelectasis, despite mild pulmonary hyperinflation, but cannot exclude infiltrate. Electronically Signed: Nia Edward MD at 22:15 EST , Discharge Plan Triage Chief Complaint: Weakness ED Provider: Joel Tong Dx/Rx/DC Orders Prescriptions: No Action carvedilol 25 MG tablet 12.5 mg PO BID Patient Comments: Heart health aspirin 81 MG tablet,chewable 81 mg PO DAILY@0800 sennosides 1 TABLET tablet 1 tab PO BID PRN PRN (Reason: Constipation) lisinopril 40 MG tablet 40 mg PO DINNER Patient Comments: Take 1 (one) Tablet with supper iron, carbonyl 45 MG capsule 45 mg PO DAILYCM Qty: 30 0RF insulin aspart U-100 100 UNITS/ML insulin pen 5 units subcut LUNCH 0RF insulin aspart U-100 100 UNITS/ML insulin pen 5 units subcut BREAKFAST 0RF insulin aspart U-100 100 UNITS/ML insulin pen 5 units subcut DINNER 0RF insulin detemir U-100 100 UNITS/ML insulin pen 20 units subcut QHS 0RF Primary Care Provider: Chriss Perez Referrals: Chriss Perez MD [Primary Care Provider] -
[2023-05-28 22:15] LABS: Bedside Glucose 121 mg/dL (74-106)
[2023-05-28 22:16] LABS: Bacteria 0 SEEN /hpf (None Seen); Mucous, Urine 0 SEEN /hpf (<or=2+); Red Blood Cells-Urine 0 SEEN /hpf (0-5); Squamous Epithelial Cells - UA 0 SEEN /hpf (0-5); White Blood Cells 0 SEEN /hpf (0-5)
[2023-05-28 22:19] LABS: Color, Urine Yellow (Yellow); Glucose, Dipstick Normal (Normal); Ketone-Dipstick Negative (Negative); Leukocyte Esterase-Dipstick Negative /ul (Negative); Nitrite-Dipstick Negative (Negative); Occult Blood-Urine Negative /ul (Negative); Protein-Dipstick Negative (Negative); Specific Gravity, Urine 1.015 (1.002-1.030); Urine Bilirubin Dipstick Negative (Negative); Urine Clarity Clear (Clear); Urine Urobilinogen Normal (Normal); Urine pH 6.5 (5.0 - 8.0)
[2023-05-28 22:31] LABS: ALB/GLOB Ratio 0.8 RATIO (0.9-2.4); AST(SGOT) 11 U/L (15-37); Alanine Aminotransfer ALT/SGPT 15 U/L (16-61); Albumin, Serum 3.3 g/dL (3.2-5.0); Alkaline Phosphatase 197 U/L (45-117); Anion Gap 7 (5-15); BUN 36 mg/dL (7-18); Calcium,Total 10.2 mg/dL (8.5-10.1); Chloride 107 mmol/L (98-107); Creatinine, Serum 0.68 mg/dL (0.70-1.30); EST Glomerular Filtration Rate 119 mL/min (>60); Est Glom Filt Rate - Afr Amer 144 mL/min (>60); Estimated Creatinine Clearance 56.95 ml/min; Globulin 4.4 g/dL (2.2-4.2); Glucose 131 mg/dL (74-106); Potassium 3.9 mmol/L (3.5-5.1); Protein, Total 7.7 g/dL (6.4-8.2); Sodium Level 142 mmol/L (136-145); Troponin-I HS 13 pg/mL (3.0-78.0)
[2023-05-28] MEDS: 0.9% Normal Saline (1000mL) 1,000 ML 999 ML IV (22:51)
[2023-05-28 23:00] VITALS: BP 148/67; PULSE 63; RESP 13; O2SAT 99
[2023-05-29] VITALS: BP 183/87; PULSE 71; RESP 11
[2023-05-29 03:06] VITALS: BP 164/84; PULSE 85; RESP 18; O2SAT 96
--- NOTE | 2023-05-29 03:26 | ED.RN ---
CALLED FOR [facility] AT 0000 ETA 3 HRS. CALLED BACK AT 320 GIVEN ANOTHER 60-90 MINUTES.
[2023-05-29 05:51] LABS: Bedside Glucose 108 mg/dL (74-106)
== END 2023-05-29 05:37 | disposition home or self-care (01) ==
PROVIDERS: Emergency Provider Student in an Organized Health Care Education/Training Program; PCP Family Medicine; Visit Provider Student in an Organized Health Care Education/Training Program
DX: R53.1 Weakness (principal); E11.9 Type 2 diabetes mellitus without complications; E86.0 Dehydration; J98.11 Atelectasis; Z87.891 Personal history of nicotine dependence; I10 Essential (primary) hypertension
CPT/HCPCS: 71045; 80053; 81001; 82962; 84484; 85025; 87631; 93005; 96361; 99283; J7030; A4216

== ENCOUNTER → 2023-08-10 | Outpatient (CLI) | payer MEDICARE, SELFPAY ==
[2023-08-10 15:37] LABS: Absolute Lymphocyte Count 1.02 X10^3/uL (0.83-4.51); Absolute Neutrophil Count 3.4 X10^3/uL (2.0-7.7); Basophil# 0.04 X10^3/uL; Basophil% 0.8 % (0-1); Eosinophil# 0.19 X10^3/uL; Eosinophils% 3.7 % (0-5); Hemoglobin 12.8 g/dL (13.0-16.5); Lymphocyte # 1.02 X10^3/ul (0.83-4.51); Mean Corp Hgb Conc 32.8 g/dL (32-36); Mean Corpuscular Hgb 31.4 pg (27.0-32.0); Mean Corpuscular Volume 95.8 fL (80-94); Mean Platelet Vol. 9.9 fl (6.2-12.0); Monocyte# 0.41 X10^3/uL; Monocyte% 8.1 % (0-10); NRBC Flagged by Analyzer 0 % (0-5); Neutrophil # 3.41 X10^3/uL (2.7-7.7); Platelet Count 254 K/mm3 (150-450); RBC Distribution Width CV 13.3 % (11.6-14.6); RBC Distribution Width SD 47.5 fl (35.1-43.9); Red Blood Count 4.07 M/mm3 (4.6-6.2); White Blood Count 5.1 K/mm3 (4.4-11.0)
[2023-08-10 16:07] LABS: Erythrocyte Sedimentation Rate 74 mm/hr (0-20)
[2023-08-10 16:41] LABS: Vitamin B12 367 pg/mL (211-911)
[2023-08-10 16:49] LABS: Hemoglobin A1c 6.8 % (3.8-5.6)
[2023-08-10 17:06] LABS: ALB/GLOB Ratio 0.7 RATIO (0.9-2.4); AST(SGOT) 17 U/L (15-37); Alanine Aminotransfer ALT/SGPT 18 U/L (16-61); Albumin, Serum 3.6 g/dL (3.2-5.0); Alkaline Phosphatase 236 U/L (45-117); Anion Gap 9 (5-15); BUN 33 mg/dL (7-18); BUN/Creat Ratio 40.7 RATIO (10-20); Calcium,Total 9.8 mg/dL (8.5-10.1); Chloride 105 mmol/L (98-107); Cholesterol 190 mg/dL (200); Creatinine, Serum 0.81 mg/dL (0.70-1.30); EST Glomerular Filtration Rate 97 mL/min (>60); Est Glom Filt Rate - Afr Amer 117 mL/min (>60); Ferritin 597 ng/mL (26-388); GGTP 30 U/L (15-85); Globulin 4.9 g/dL (2.2-4.2); Glucose 156 mg/dL (74-106); High Density Lipoprotein 35 mg/dL; Potassium 4.1 mmol/L (3.5-5.1); Protein, Total 8.5 g/dL (6.4-8.2); Sodium Level 138 mmol/L (136-145); Thyroid Stim Hormone (TSH) 1.75 uIU/mL (0.358-3.74)
[2023-08-12 15:08] LABS: AFP, Tumor Marker < 1.8 ng/mL (0.0-6.4); PROEL- A/G Ratio 0.8 (0.7-1.7); PROEL- Albumin 3.3 g/dL (2.9-4.4); PROEL- Alpha-1 Globulin 0.2 g/dL (0.0-0.4); PROEL- Beta Globulin 1.3 g/dL (0.7-1.3); PROEL- Gamma Globulin 1.8 g/dL (0.4-1.8); PROEL- Globulin, Total 4.3 g/dL (2.2-3.9); PROEL- TOTAL PROTEIN 7.6 g/dL (6.0-8.5); PROEL-M-Spike Not Observed g/dL (Not Observed)
== END | disposition home or self-care (01) ==
PROVIDERS: PCP Family Medicine; Visit Provider Family Medicine
DX: C22.1 Intrahepatic bile duct carcinoma (principal); M06.4 Inflammatory polyarthropathy; E11.8 Type 2 diabetes mellitus with unspecified complications; D64.9 Anemia, unspecified; M62.81 Muscle weakness (generalized)
CPT/HCPCS: 36415; 80053; 82105; 82465; 82607; 82728; 82746; 82977; 83036; 83718; 84165; 84443; 85025; 85652; 86140

== ENCOUNTER → 2023-08-14 | Outpatient (CLI) | payer MEDICARE, SELFPAY ==
[2023-08-14 12:36] LABS: Microalbumin,Random Urine 8.4 mg/L (NO RANGE EST.); Microalbumin:Creatinine Ratio 12.5 mg/g CRE (<30 mg/g CRE)
[2023-08-14 14:16] LABS: Microalbumin,Random Urine 9.9 mg/L (NO RANGE EST.)
== END | disposition home or self-care (01) ==
PROVIDERS: PCP Family Medicine; Referring Provider Family Medicine; Visit Provider Family Medicine
DX: E11.8 Type 2 diabetes mellitus with unspecified complications (principal)
CPT/HCPCS: 82043; 82570

== ENCOUNTER 2024-02-16 15:35 | Emergency (ER) | payer MEDICARE, SELFPAY ==
[2024-02-16 15:37] VITALS: TEMP 36.6; BMI 28.3
[2024-02-16 15:41] VITALS: BP 172/85; PULSE 69; O2SAT 96
--- NOTE | 2024-02-16 15:50 | EX.ED.DYSGE1 ---
HPI History of Present Illness Chief Complaint: Edema Informant: patient Narrative Narrative: Progressive lower extremity swelling feet and ankles over the last 1 and half to 2 weeks. No swelling in the abdomen. Denies history of heart failure. Denies orthopnea symptoms. Denies dyspnea. Discussed potential history of lymphedema he denies this. He states he is possibly on a water pill 25 mg however review his medications does not note this. He denies being on furosemide, Lasix, Bumex. He is able to ambulate. He uses a walker and a cane at home. He is brought in by EMS. [facility] Medical History Hyperglycemia Hyponatremia BRIELLE (acute kidney injury) Encounter for adjustment or management of vascular access device Diabetes mellitus Shortness of breath Anasarca Protein malnutrition Gallbladder carcinoma Gallstone pancreatitis Psoriasis Hypertension Hypokalemia Acute pancreatitis Home Medications ?Medication ?Instructions ?Recorded ?Last Taken ?Type aspirin 81 mg chewable tablet 81 mg PO DAILY@0800 heart health 11/18/16 12/01/16 10:56 History carvedilol 25 mg tablet 12.5 mg PO BID heart, blood 11/18/16 01/29/17 History pressure sennosides 8.6 mg tablet 1 tab PO BID PRN PRN Constipation 03/09/17 Unknown History lisinopril 40 mg tablet 40 mg PO DINNER htn 09/21/17 Unknown History iron, carbonyl 45 mg tablet 45 mg PO DAILYCM #30 caps 09/22/17 Unknown Rx insulin aspart U-100 100 unit/mL 5 units subcut BREAKFAST 09/23/17 Unknown Rx (3 mL) subcutaneous pen insulin aspart U-100 100 unit/mL 5 units subcut DINNER 09/23/17 Unknown Rx (3 mL) subcutaneous pen insulin aspart U-100 100 unit/mL 5 units subcut LUNCH 09/23/17 Unknown Rx (3 mL) subcutaneous pen insulin detemir U-100 100 unit/mL 20 units subcut QHS 09/23/17 Unknown Rx (3 mL) subcutaneous pen furosemide 40 mg tablet (Lasix) 40 mg PO DAILY #10 tabs 02/16/24 Unknown Rx Allergy/AdvReac Type Severity Reaction Status Date / Time No Known Allergies Allergy Verified 02/16/24 15:43 Social History Smoking Status: Former smoker ROS ROS ED Constitutional Constitutional ED: Denies chills, fever(s) or sweats Eyes Eyes: Denies change in vision ENT ENT ED: Denies dysphagia or sore throat Cardiovascular Cardiovascular: Reports leg edema; Denies chest pain, palpitations or racing heartbeat Respiratory/Chest Respiratory/Chest: Denies cough, dyspnea or dyspnea on exertion Gastrointestinal Gastrointestinal: Denies abdominal pain, diarrhea, nausea or vomiting Genitourinary Genitourinary ED: Denies dysuria, hematuria or urinary frequency Musculoskeletal Musculoskeletal: Denies back pain, extremity pain or neck pain Integumentary Denies rash or wounds Neurologic Neurologic: Denies headache(s), paresthesias or weakness EXAM Physical Exam Const Vital Signs: 02/16/24 15:37 02/16/24 15:41 02/16/24 15:41 Temperature 97.8 F Temperature Source Temporal Pulse Rate 69 Respiratory Rate Respiratory Effort Respiratory Pattern Blood Pressure 172/85 H Blood Pressure Mean 114 Pulse Ox 96 Oxygen Delivery Method Room Air 02/16/24 15:41 02/16/24 17:36 02/16/24 19:00 Temperature Temperature Source Pulse Rate 75 68 Respiratory Rate 16 Respiratory Effort Normal Non-Labored Respiratory Pattern Normal Blood Pressure 111/71 121/65 H Blood Pressure Mean 84 83 Pulse Ox 99 98 Oxygen Delivery Method Room Air Room Air 02/16/24 19:04 Temperature 97.5 F L Temperature Source Pulse Rate 68 Respiratory Rate 16 Respiratory Effort Respiratory Pattern Blood Pressure 121/65 H Blood Pressure Mean 83 Pulse Ox 98 Oxygen Delivery Method Positive well nourished and well developed General Appearance ED: well developed and NAD HEENT Reports moist mucous membranes normocephalic and atraumatic Eyes EOMs intact bilaterally and conjunctivae normal General Eye ED: Yes normal appearance of both eyes Neck no lymphadenopathy and supple General: Negative for tenderness Chest Wall Chest: Negative for tenderness Resp normal respiratory effort and normal air movement Effort and Inspection: symmetric chest movement; Negative for respiratory distress Cardio regular rate, regular rhythm and no murmurs Peripheral Pulses: pulses 2+ throughout GI normal to inspection, nondistended, normoactive bowel sounds and non-tender Palpation: Negative for guarding or rebound tenderness present Back/Spine no CVA tenderness and no thoracic nor lumbar tenderness Extremity normal to inspection Extremity Narrative: 2+ bilateral lower extremity edema, no calf tenderness. Skin intact. General Extremety ED: Yes edema; Negative for tenderness General Extremity: edema Neuro oriented x3 and no sensory deficits noted Sensorium / Orientation: awake and alert Skin no rashes or lesions noted and no wounds MDM MDM MDM Narrative Medical decision making narrative: Interventions / MDM: Differential diagnosis: Peripheral edema Diagnosis considered but do not suspect: No clinical DVT, no clinical CHF My EKG interpretation: N/A Imaging independently reviewed and interpreted by myself: N/A External documents reviewed: N/A Test considered but not ordered:N/A ED course: Isolated lower extremity edema bilaterally. No CHF symptoms. Will check basic labs and plan for diuretics. Labs are stable. Creatinine 0.72. Was given Lasix IV in the ED. Prescription for Lasix for home use. He is able to ambulate. Outpatient follow-up. All questions were answered. Re-evaluation: stable Disposition discussed with patient/family/significant other: Patient Case discussed with consulting clinician: N/A This note was generated with [employer] dictation software. It may contain incorrect words, spelling, and punctuation that were not noted in checking the note before signing. Lab Data Attestation: I reviewed the patient's lab results. Labs: Laboratory Results - last 24 hr 02/16/24 15:52 WBC 4.8 RBC 4.00 L Hgb 12.5 L Hct 38.1 L MCV 95.3 H MCH 31.3 MCHC 32.8 RDW Std Deviation 49.1 H RDW Coeff of Manuel 14.0 Plt Count 201 MPV 9.3 Immature Gran % (Auto) 0.200 Neut % (Auto) 45.6 L Lymph % (Auto) 34.0 [place] % (Auto) 16.7 H Eos % (Auto) 2.7 Baso % (Auto) 0.8 Absolute Neuts (auto) 2.2 Absolute Lymphs (auto) 1.63 Nucleated RBC % 0 Sodium 139 Potassium 3.6 Chloride 105 Carbon Dioxide 29.0 Anion Gap 5 BUN 29 H Creatinine 0.72 Estim Creat Clear Calc 76.42 Est GFR (MDRD) Af Amer 133 Est GFR (MDRD) Non-Af 110 BUN/Creatinine Ratio 40.1 H Glucose 80 Calcium 9.7 Total Bilirubin 0.50 AST 14 L ALT 14 L Alkaline Phosphatase 217 H Total Protein 8.1 Albumin 3.5 Globulin 4.6 H Albumin/Globulin Ratio 0.8 L Discharge Plan Triage Chief Complaint: Edema ED Provider: Edwin Rowan Dx/Rx/DC Orders Clinical Impression: Edema, peripheral, Diabetes mellitus Instructions: ED Peripheral Edema, Bilateral Prescriptions: New furosemide [Lasix] 40 mg tablet 40 mg PO DAILY Qty: 10 0RF No Action carvedilol 25 MG tablet 12.5 mg PO BID Patient Comments: Heart health aspirin 81 MG tablet,chewable 81 mg PO DAILY@0800 sennosides 1 TABLET tablet 1 tab PO BID PRN PRN (Reason: Constipation) lisinopril 40 MG tablet 40 mg PO DINNER Patient Comments: Take 1 (one) Tablet with supper iron, carbonyl 45 MG capsule 45 mg PO DAILYCM Qty: 30 0RF insulin aspart U-100 100 UNITS/ML insulin pen 5 units subcut LUNCH 0RF insulin aspart U-100 100 UNITS/ML insulin pen 5 units subcut BREAKFAST 0RF insulin aspart U-100 100 UNITS/ML insulin pen 5 units subcut DINNER 0RF insulin detemir U-100 100 UNITS/ML insulin pen 20 units subcut QHS 0RF Primary Care Provider: Chriss Perez Referrals: Chriss Perez MD [Primary Care Provider] - 1 Week Activity Restrictions/Additional Instructions: Your creatinine is 0.72. Toprol-XL as prescribed to help with leg swelling. Follow-up with your doctor in 1 week. Print Language: Greenlandic Disposition Disposition: Home, Self Care Discharge Date/Time: 02/16/24 20:05
[2024-02-16 16:02] LABS: Absolute Lymphocyte Count 1.63 X10^3/uL (0.83-4.51); Absolute Neutrophil Count 2.2 X10^3/uL (2.0-7.7); Basophil# 0.04 X10^3/uL; Basophil% 0.8 % (0-1); Eosinophil# 0.13 X10^3/uL; Eosinophils% 2.7 % (0-5); Hematocrit 38.1 % (40-54); Hemoglobin 12.5 g/dL (13.0-16.5); Lymphocyte # 1.63 X10^3/ul (0.83-4.51); Mean Corp Hgb Conc 32.8 g/dL (32-36); Mean Corpuscular Hgb 31.3 pg (27.0-32.0); Mean Corpuscular Volume 95.3 fL (80-94); Mean Platelet Vol. 9.3 fl (6.2-12.0); Monocyte% 16.7 % (0-10); NRBC Flagged by Analyzer 0 % (0-5); Neutrophil # 2.18 X10^3/uL (2.7-7.7); Neutrophil % 45.6 % (47-70); Platelet Count 201 K/mm3 (150-450); RBC Distribution Width SD 49.1 fl (35.1-43.9); White Blood Count 4.8 K/mm3 (4.4-11.0)
[2024-02-16 16:13] LABS: ALB/GLOB Ratio 0.8 RATIO (0.9-2.4); AST(SGOT) 14 U/L (15-37); Alanine Aminotransfer ALT/SGPT 14 U/L (16-61); Albumin, Serum 3.5 g/dL (3.2-5.0); Alkaline Phosphatase 217 U/L (45-117); Anion Gap 5 (5-15); BUN 29 mg/dL (7-18); BUN/Creat Ratio 40.1 RATIO (10-20); Calcium,Total 9.7 mg/dL (8.5-10.1); Chloride 105 mmol/L (98-107); Creatinine, Serum 0.72 mg/dL (0.70-1.30); EST Glomerular Filtration Rate 110 mL/min (>60); Est Glom Filt Rate - Afr Amer 133 mL/min (>60); Estimated Creatinine Clearance 76.42 ml/min; Globulin 4.6 g/dL (2.2-4.2); Glucose 80 mg/dL (74-106); Potassium 3.6 mmol/L (3.5-5.1); Protein, Total 8.1 g/dL (6.4-8.2); Sodium Level 139 mmol/L (136-145)
[2024-02-16] MEDS: Furosemide 40 MG/4 ML Vial IV (16:43)
[2024-02-16 17:36] VITALS: BP 111/71; PULSE 75; O2SAT 99
--- NOTE | 2024-02-16 18:22 | NURSING ---
CALLED [facility], ETA IS 3 HRS
[2024-02-16 19:00] VITALS: BP 121/65; PULSE 68; RESP 16; O2SAT 98
[2024-02-16 19:04] VITALS: BP 121/65; PULSE 68; RESP 16; TEMP 36.4; O2SAT 98
== END 2024-02-16 20:05 | disposition home or self-care (01) ==
PROVIDERS: Emergency Provider Emergency Medicine; PCP Family Medicine; Visit Provider Emergency Medicine
DX: R60.0 Localized edema (principal); E11.9 Type 2 diabetes mellitus without complications; I10 Essential (primary) hypertension; Z87.891 Personal history of nicotine dependence; Z79.899 Other long term (current) drug therapy
CPT/HCPCS: 80053; 85025; 96374; 99283; A4216; J1940

== ENCOUNTER 2025-03-31 15:24 | Emergency (ER) | payer MEDICARE, SELFPAY ==
[2025-03-31] VITALS (7 sets, daily range): BP systolic 130–172; BP diastolic 73–93; PULSE 65–81; RESP 14–18; TEMP 36.3–36.6; O2SAT 95–100; BMI 27.3
--- NOTE | 2025-03-31 16:55 | EX.ED.DYSGE1 ---
HPI History of Present Illness Chief Complaint: Wound Informant: patient Onset/Context/Timing Onset: Month(s) (2) Context: Gradual Onset Timing: Continuous Quality: Dull Location: Right ankle Worsened by: Nothing Relieved by: Vaseline and rubbing alcohol Narrative Narrative: Patient presents with pain and swelling to his right ankle. Patient states it has been getting progressively worse over the past 2 months. Patient has an open wound on his right ankle. Patient states he has been using Vaseline and rubbing alcohol on it. Patient states that this has been helping somewhat. Patient describes his pain as dull. Patient states it is constant. Patient denies any trauma or injury. Patient denies paresthesias or weakness. Patient denies any fevers or chills. [facility] Medical History Former smoker Hyperglycemia Hyponatremia BRIELLE (acute kidney injury) Encounter for adjustment or management of vascular access device Diabetes mellitus Shortness of breath Anasarca Protein malnutrition Gallbladder carcinoma Gallstone pancreatitis Psoriasis Hypertension Hypokalemia Acute pancreatitis Home Medications ?Medication ?Instructions ?Recorded ?Last Taken ?Type aspirin 81 mg chewable tablet 81 mg PO DAILY@0800 heart health 11/18/16 12/01/16 10:56 History carvedilol 25 mg tablet 12.5 mg PO BID heart, blood 11/18/16 01/29/17 History pressure lisinopril 40 mg tablet 40 mg PO DINNER htn 09/21/17 Unknown History insulin aspart U-100 100 unit/mL 5 units subcut BREAKFAST 09/23/17 Unknown Rx (3 mL) subcutaneous pen insulin aspart U-100 100 unit/mL 5 units subcut DINNER 09/23/17 Unknown Rx (3 mL) subcutaneous pen insulin aspart U-100 100 unit/mL 5 units subcut LUNCH 09/23/17 Unknown Rx (3 mL) subcutaneous pen insulin detemir U-100 100 unit/mL 20 units subcut QHS 09/23/17 Unknown Rx (3 mL) subcutaneous pen allopurinol 100 mg tablet 100 mg PO DAILY 03/31/25 Unknown History amoxicillin 875 mg-potassium 875 mg PO Q12H #20 TABLETS 03/31/25 Unknown Rx clavulanate 125 mg tablet indapamide 1.25 mg tablet 1.25 mg PO DAILY 03/31/25 Unknown History insulin detemir U-100 100 unit/mL 4 unit subcut QHS PRN hyperglycemia 03/31/25 Unknown History (3 mL) subcutaneous pen (Levemir FlexPen) insulin lispro 100 unit/mL 5 unit subcut TID diabetes mellitus 03/31/25 Unknown History subcutaneous pen Allergy/AdvReac Type Severity Reaction Status Date / Time No Known Allergies Allergy Verified 03/31/25 15:25 Surgical History History of cholecystectomy Social History Smoking Status: Former smoker ROS ROS ED Constitutional Constitutional ED: Denies chills or fever(s) Eyes Eyes: Denies blurry vision or change in vision ENT ENT ED: Denies rhinorrhea or sore throat Cardiovascular Cardiovascular: Denies chest pain or palpitations Respiratory/Chest Respiratory/Chest: Denies cough or dyspnea Gastrointestinal Gastrointestinal: Denies nausea or vomiting Genitourinary Genitourinary ED: Denies dysuria or hematuria Musculoskeletal Musculoskeletal: Reports back pain; Denies neck pain Integumentary Denies abscess or rash Neurologic Neurologic: Denies headache(s) or weakness Allergic/Immunologic Allergic/Immunologic ED: Denies mouth swelling or urticaria EXAM Physical Exam Const Vital Signs: 03/31/25 15:25 Temperature 98 F Temperature Source Oral Pulse Rate 69 Respiratory Rate 18 Blood Pressure 172/81 H Blood Pressure Mean 111 Pulse Ox 100 Oxygen Delivery Method Room Air Positive well nourished and well developed General Appearance ED: well developed and NAD HEENT Reports moist mucous membranes Neck supple and no JVD Resp normal respiratory effort and clear to auscultation bilaterally Cardio regular rate and regular rhythm GI non-tender and non-distended Palpation: soft Extremity Extremity Narrative: There is a superficial ulceration over the lateral aspect of the right ankle. It extends into the dermis. There is some mild drainage noted. There is tenderness and edema over the lateral aspect of the right ankle. There is full range of motion of the right ankle. Sensation was intact to light touch in all digits. Pedal pulses are equal bilaterally. Strength is 5/5 bilaterally in the lower extremities. General Extremety ED: Yes edema and tenderness General Extremity: edema Neuro oriented x3, CN's II-XII intact bilaterally and no sensory deficits noted Sensorium / Orientation: alert Motor Exam: strength 5/5 throughout Psych mental status grossly normal MDM MDM MDM Narrative Medical decision making narrative: Differential diagnosis includes cellulitis, diabetic wound, osteomyelitis, electrolyte abnormality, sepsis, and urinary tract infection. X-rays of the right ankle will be obtained to assess for osteomyelitis. CBC will be obtained to assess for leukocytosis and anemia. Basic metabolic profile will be obtained to assess for electrolyte abnormality and renal function. Serum lactate will be obtained to assess for sepsis. PT with INR and PTT will be obtained to assess for coagulopathy. Wound culture will be obtained to assess for wound infection. Blood culture will be obtained to assess for sepsis. History & Record Review Additional record(s) reviewed:: Prior labs Lab Data Attestation: I reviewed the patient's lab results. Lab results narrative: CBC was reviewed. White blood cell count was 4.0. This is consistent with previous results. There is a mild anemia with a hemoglobin of 11.4 and hematocrit of 34.9. Platelets were normal. Basic metabolic profile was reviewed and was essentially within normal limits. PT with INR and PTT were reviewed and were within normal limits. Serum lactate was reviewed and was less than 1.0. Urinalysis was reviewed. There is no evidence of urinary tract infection or hematuria. Radiography Diagnostic Testing: X-rays of the right ankle were obtained. There are 3 views. On my independent interpretation, there is no acute fracture. There is no evidence of osteomyelitis. Radiologist also interpreted the x-rays and agrees. Treatment and Re-Evaluation :: Patient was given IV fluids. Patient was given a dose of Unasyn here. Patient was also given a dose of vancomycin. Patient was advised of his findings. Patient was given a prescription for Augmentin. Patient was given a referral for the wound care center. Patient was instructed to follow-up in 3 to 5 days. Patient was instructed to return if worse in any way. Patient understood and was agreeable with the plan. All questions were answered. Discharge Plan Triage Chief Complaint: Wound ED Provider: Chriss Morales Dx/Rx/DC Orders Clinical Impression: Cellulitis of right lower leg, Diabetic ulcer of ankle, Diabetes mellitus Instructions: ED Cellulitis Prescriptions: New amoxicillin-pot clavulanate 875-125 mg tablet 875 mg PO Q12H Qty: 20 0RF No Action carvedilol 25 MG tablet 12.5 mg PO BID Patient Comments: Heart health aspirin 81 MG tablet,chewable 81 mg PO DAILY@0800 lisinopril 40 MG tablet 40 mg PO DINNER Patient Comments: Take 1 (one) Tablet with supper insulin aspart U-100 100 UNITS/ML insulin pen 5 units subcut LUNCH 0RF insulin aspart U-100 100 UNITS/ML insulin pen 5 units subcut BREAKFAST 0RF insulin aspart U-100 100 UNITS/ML insulin pen 5 units subcut DINNER 0RF insulin detemir U-100 100 UNITS/ML insulin pen 20 units subcut QHS 0RF allopurinol 100 mg tablet 100 mg PO DAILY indapamide 1.25 mg tablet 1.25 mg PO DAILY insulin lispro 100 unit/mL insulin pen 5 unit subcut TID Levemir FlexPen 100 unit/mL (3 mL) insulin pen 4 unit subcut QHS PRN (Reason: hyperglycemia) Primary Care Provider: Lynn Ledezma Referrals: Wound Health [Outside] - 3-5 Days Lynn Ledezma MD [Primary Care Provider, Family Practice] - 3-5 Days Print Language: Tamazight Disposition Disposition: Home, Self Care
[2025-03-31] MEDS: 0.9% Normal Saline (1000mL) 1,000 ML 1000 ML IV (17:31)
[2025-03-31] MEDS: Ampicillin/Sulbactam 3 GM in 0.9% Normal Saline (100mL MB+) 100 ML IV (17:32)
[2025-03-31 17:38] LABS: Anion Gap 12 (5-15); BUN 29 mg/dL (4-19); BUN/Creat Ratio 46.3 RATIO (10-20); Calcium,Total 9.8 mg/dL (7.6-11.0); Carbon Dioxide 24.7 mmol/L (21.0-32.0); Chloride 105 mmol/L (98-108); Estimated Creatinine Clearance 66.50 ml/min (50-250); Glucose 92 mg/dL (70-99); Potassium 3.8 mmol/L (3.3-5.1)
[2025-03-31 17:51] LABS: Mucous, Urine 0 SEEN /hpf (<or=2+)
[2025-03-31 17:56] LABS: Prothrombin Time (Protime)PT. 14.5 SECONDS (11.7-14.9)
[2025-03-31 17:57] LABS: Partial Thromboplast Time 31.2 Seconds (24.1-36.2)
[2025-03-31 17:59] LABS: Hematocrit 34.9 % (40-54); Hemoglobin 11.4 g/dL (13.0-16.5); Immature Granulocytes Count 0.000 X10^3/uL (0.0-0.0); Mean Corp Hgb Conc 32.7 g/dL (32-36); Mean Corpuscular Volume 97.8 fL (80-94); Mean Platelet Vol. 9.7 fl (6.2-12.0); NRBC Flagged by Analyzer 0 % (0-5); Platelet Count 238 K/mm3 (150-450); RBC Distribution Width CV 14.2 % (11.6-14.6); RBC Distribution Width SD 50.9 fl (35.1-43.9); Red Blood Count 3.57 M/mm3 (4.6-6.2); White Blood Count 4.0 K/mm3 (4.4-11.0)
--- NOTE | 2025-03-31 18:05 | RAD_ITS ---
PROCEDURE: RAD/Ankle min 3 Views
[2025-03-31 18:27] LABS: Color, Urine Yellow (Yellow); Glucose, Dipstick Normal (Normal); Ketone-Dipstick 5 mg/dl (Negative); Leukocyte Esterase-Dipstick Negative /ul (Negative); Nitrite-Dipstick Negative (Negative); Occult Blood-Urine Negative /ul (Negative); Protein-Dipstick Negative (Negative); Specific Gravity, Urine 1.010 (1.002-1.030); Urine Bilirubin Dipstick Negative (Negative)
[2025-03-31] MEDS: Vancomycin HCl 2,000 MG in 0.9% Normal Saline (500mL Bag) 500 ML 250 MG IV (18:36)
[2025-03-31 19:23] LABS: Red Blood Cells-Urine 0-5 SEEN /hpf (0-5); Squamous Epithelial Cells - UA 0-5 SEEN /hpf (0-5)
--- NOTE | 2025-03-31 21:55 | PCA ---
Addendum entered by Maria Esther Gutiérrez 04/01/25 01:11: [facility] CALLED AT 0107 AND UPDATED THE ETA TIME TO 0700. I ASKED FOR THEM TO OUTSOURCE AGAIN AND SHE TOLD ME THEY TRIED AND THEY WERE USUCCESSFUL. Original Note: CALLED [facility] TO SET UP [facility]. TALKED TO ALEXA. GAVE ETA OF [id number].
[2025-04-01 05:11] VITALS: PULSE 76; RESP 16; O2SAT 99
--- NOTE | 2025-04-07 03:30 | ED.RN ---
Doxycycline sent to pharmacy
== END 2025-04-01 07:40 | disposition home or self-care (01) ==
PROVIDERS: Emergency Provider Emergency Medicine; PCP Pediatrics; Visit Provider Emergency Medicine
DX: L03.115 Cellulitis of right lower limb (principal); E11.622 Type 2 diabetes mellitus with other skin ulcer; L97.311 Non-pressure chronic ulcer of right ankle limited to breakdown of skin; Z79.4 Long term (current) use of insulin; I10 Essential (primary) hypertension; Z87.891 Personal history of nicotine dependence; D64.9 Anemia, unspecified
CPT/HCPCS: 73610; 80048; 81001; 83605; 85025; 85610; 85730; 87040; 87070; 87077; 87186; 87205; 96365; 96366; 96367; 99285; A4216; J0295

== ENCOUNTER 2025-04-21 15:15 | Emergency (ER) | payer MEDICARE, SELFPAY ==
[2025-04-21 15:16] VITALS: BP 159/89; PULSE 78; RESP 16; TEMP 36.5; O2SAT 100; BMI 27.6
--- NOTE | 2025-04-21 15:20 | RAD_ITS ---
PROCEDURE: FOOT MIN 3 VIEWS 04/21/2025 REASON FOR EXAM: INJURY/PAIN TECHNIQUE: Procedure Code: RADFO Modality: DX Procedure: FOOT MIN 3 VIEWS Laterality: Right FINDINGS: No definite osseous erosions. No acute fracture or dislocations. Scattered moderate degenerative changes. Diffuse moderate soft tissue edema. Atherosclerotic vasculature. No radiographic foreign body. RAD/Foot min 3 Views IMPRESSION: No definite osseous erosions are noted at this time. Moderate diffuse soft tis peg edema. No acute fracture or dislocations. Consider CT/MR if there is continued concern. Reading Location: [id number]
--- NOTE | 2025-04-21 15:20 | EDS_ITS ---
HPI History of Present Illness Chief Complaint: Lower Extremity Injury Detail of Chief Complaint: Patient was contacted by his doctor and stated he needed IV antibiotics for Informant: patient and EMS Onset/Context/Timing Onset: Weeks Timing: Continuous Quality: Told he needs IV antibiotics and transport to the hospital Location: Dorsal lateral side of foot/ankle, right side Current Severity: Mild Maximum Severity: Mild Worsened by: Based on examination PAD and diabetes Relieved by: Uncertain Associated Symptoms Associated Symptoms: No constitutional symptoms Narrative Narrative: Patient is an 84-year-old male. He has history of type 1 diabetes on insulin, lymphedema lower extremity exam, carcinoma of the gallbladder, who was seen March 31 for wound infection. He was treated with antibiotics at that time. He states he took his last dose of antibiotics 2 days ago. He denies fever, chills night sweats. He has not checked his blood sugar today. He states he checks it 4-5 times a day. Has not been running much higher than normal. He denies polyuria, polydipsia or polyphasia. He has not seen by plastics or in the wound center. He is not seen by a pencil maker either. Prior similar symptoms: Yes Recent Illness/Hospitalization: No [facility] Medical History Former smoker Hyperglycemia Hyponatremia BRIELLE (acute kidney injury) Encounter for adjustment or management of vascular access device Diabetes mellitus Shortness of breath Anasarca Protein malnutrition Gallbladder carcinoma Gallstone pancreatitis Psoriasis Hypertension Hypokalemia Acute pancreatitis Home Medications ?Medication ?Instructions ?Recorded ?Last Taken ?Type aspirin 81 mg chewable tablet 81 mg PO DAILY@0800 hear JoGuru 11/18/16 12/01/16 10:56 History insulin aspart U-100 100 unit/mL 5 units subcut BREAKF AST 09/23/17 Unknown Rx (3 mL) subcutaneous pen insulin aspart U-100 100 unit/mL 5 units subcut DINNER 09/23/17 Unknown Rx (3 mL) subcutaneous pen insulin aspart U-100 100 unit/mL 5 units subcut LUNCH 09/23/17 Unknown Rx (3 mL) subcutaneous pen insulin detemir U-100 100 unit/mL 20 units subcut QHS 09/23/17 Unknown Rx (3 mL) subcutaneous pen allopurinol 100 mg tablet 100 mg PO DAILY 03/31/25 Unk nown History amoxicillin 875 mg-potassium 875 mg PO Q12H #20 TABLET S 03/31/25 Unknown Rx clavulanate 125 mg tablet carvedilol 25 mg tablet 12.5 mg (1/2 x 25 mg) PO BID 03/31/25 Unknown Rx heart, blood pressure #20 tabs indapamide 1.25 mg tablet 1.25 mg PO DAILY 03/31/25 Un known History insulin detemir U-100 100 unit/mL 4 unit subcut QHS MO N hyperglycemia 03/31/25 Unknown History (3 mL) subcutaneous pen (Levemir FlexPen) insulin lispro 100 unit/mL 5 unit subcut TID diabetes mellitus 03/31/25 Unknown History subcutaneous pen lisinopril 40 mg tablet 40 mg PO DINNER htn #10 tabs 03/31/25 Unknown Rx doxycycline hyclate 100 mg capsule 100 mg PO BID #14 c aps 04/07/25 Unknown Rx Allergy/AdvReac Type Severity Reaction Status Date / Time No Known Allergies Allergy Verified 04/21/25 15:18 Surgical History History of cholecystectomy Social History (Updated 04/21/25 @ 15:32 by Sherrill Gandara) housing: house Smoking Status: Former smoker ROS ROS ED Constitutional Constitutional ED: Denies chills, fever(s), subjective, sweats or weight loss Gastrointestinal Gastrointestinal: Denies nausea or vomiting Musculoskeletal Musculoskeletal: Denies arthralgias or myalgias Integumentary Reports rash Neurologic Neurologic: Denies paresthesias or weakness Hematologic/Lymphatic Hematologic/Lymphatic: Reports systems reviewed and no addt'l complaints, except as documented EXAM Physical Exam Const Vital Signs: 04/21/25 15:16 04/21/25 15:31 Temperature 97.7 F L 97.7 F L Temperature Source Oral Oral Pulse Rate 78 78 Respiratory Rate 16 16 Blood Pressure 159/89 H 157/83 H Blood Pressure Mean 112 107 Pulse Ox 100 98 Oxygen Delivery Method Room Air Room Air Positive well nourished and well developed General Appearance ED: well developed and NAD HEENT Reports moist mucous membranes Eyes PERRL and EOMs intact bilaterally General Eye ED: Negative for pale conjunctiva or scleral icterus Resp normal respiratory effort and clear to auscultation bilaterally Cardio regular rate, regular rhythm, S1 normal heart sound, S2 normal heart sound and no murmurs Narrative: There is no inguinal lymphadenopathy on the right. Extremity Extremity Narrative: Patient has bilateral pitting lymphedema as well as venous stasis dermatitis and stigmata of PAD. Neuro oriented x3 and CN's II-XII intact bilaterally Sensorium / Orientation: alert Psych mental status grossly normal Skin Skin Narrative: Patient has decubitus ulcer of his foot and ankle. This is down to the fascia. There was granulation tissue which was removed. Once the granulation tissue was removed there is no evidence of drainage, erythema; there is no warmth, and there is no lymphangitis. He has no popliteal or inguinal lymphadenopathy. In my opinion there is no evidence or concern for infection. Since he was sent in for IV antibiotics and admission we will obtain blood work and imaging to rule out any deep infection and confirm my clinical impression that admission is not warranted. MDM MDM MDM Narrative Medical decision making narrative: Patient with wound at his healing slowly due to the fact that he has PAD and diabetes. He also has lymphedema. In my opinion there is no obvious evidence of acute infection. Since patient was sent in for admission and IV antibiotics will obtain x-ray, blood work including ESR to either support admission or confirm my clinical suspicion that he can be treated as an outpatient and refer to podiatry/wound center. History & Record Review Additional record(s) reviewed:: Prior ED visit (He was seen on March 31 for infection and placed on antibiotics. He completed the course of antibiotics.) and Prior labs Lab Data Attestation: I reviewed the patient's lab results. Lab results narrative: CBC reveals macrocytic anemia otherwise negative. White count is normal. Differential is normal. CBC is essentially unchanged from prior. Basic metabolic panel reveals an elevated BUN to creatinine ratio. This has been noted on prior results. Blood sugar slightly elevated 134. CO2 and anion gap are normal. Labs: Laboratory Results - last 24 hr 04/21/25 15:25 WBC 4.7 RBC 3.57 L Hgb 11.5 L Hct 34.5 L MCV 96.6 H MCH 32.2 H MCHC 33.3 RDW Std Deviation 52.5 H RDW Coeff of Manuel 14.6 Plt Count 194 MPV 9.6 Immature Gran % (Auto) 0.400 Neut % (Auto) 61.7 Lymph % (Auto) 25.5 [place] % (Auto) 8.7 Eos % (Auto) 2.8 Baso % (Auto) 0.9 Absolute Neuts (auto) 2.9 Absolute Lymphs (auto) 1.20 Nucleated RBC % 0 Sodium 139 Potassium 4.0 Chloride 103 Carbon Dioxide 25.7 Anion Gap 10 BUN 28 H Creatinine 0.58 L Estim Creat Clear Calc 71.94 Est GFR (MDRD) Non-Af 96 BUN/Creatinine Ratio 47.9 H Glucose 134 H Calcium 10.0 Radiography Chest X-Ray - ED: Read by ED Physician (4 view x-ray of the right foot reveals no evidence of subcutaneous air, osteomyelitis, or foreign body. This is ap parently reviewed interpreted by me at 1532.) Treatment and Re-Evaluation :: Call was placed to his physician since he does not require admission. Will have him follow-up with Dr. Peck since this wound is been present for approximately 2 months. Discharge Plan Triage Chief Complaint: Lower Extremity Injury ED Provider: Rony Wang Dx/Rx/DC Orders Clinical Impression: Decubitus ulcer of right foot, stage 2, Decubitus ulcer of right ankle, stage 2, Type 1 diabetes mellitus with hyperglycemia, Hypertension, Anemia, macrocytic, Prerenal azotemia Instructions: Staff Ed Cleaning and Dressing ..., ED Simple Pressure Injury Prescriptions: No Action aspirin 81 MG tablet,chewable 81 mg PO DAILY@0800 insulin aspart U-100 100 UNITS/ML insulin pen 5 units subcut LUNCH 0RF insulin aspart U-100 100 UNITS/ML insulin pen 5 units subcut BREAKFAST 0RF insulin aspart U-100 100 UNITS/ML insulin pen 5 units subcut DINNER 0RF insulin detemir U-100 100 UNITS/ML insulin pen 20 units subcut QHS 0RF allopurinol 100 mg tablet 100 mg PO DAILY indapamide 1.25 mg tablet 1.25 mg PO DAILY insulin lispro 100 unit/mL insulin pen 5 unit subcut TID Levemir FlexPen 100 unit/mL (3 mL) insulin pen 4 unit subcut QHS PRN (Reason: hyperglycemia) amoxicillin-pot clavulanate 875-125 mg tablet 875 mg PO Q12H Qty: 20 0RF carvedilol 25 MG tablet 12.5 mg PO BID Qty: 20 0RF lisinopril 40 MG tablet 40 mg PO DINNER Qty: 10 0RF doxycycline hyclate 100 mg capsule 100 mg PO BID Qty: 14 0RF Primary Care Provider: Lynn Ledezma Referrals: Wound Health [Outside] - 5-7 Days Loyd Peck DPM [Med Staff - Active Staff, Podiatry] - 3-5 Days Lynn Ledezma MD [Primary Care Provider, [facility]] - As Needed Activity Restrictions/Additional Instructions: Wet-to-dry dressing changes 3-4 times a day Print Language: Welsh Disposition Disposition: Home, Self Care
[2025-04-21 15:31] VITALS: BP 157/83; PULSE 78; RESP 16; TEMP 36.5; O2SAT 98
[2025-04-21 15:38] LABS: Hematocrit 34.5 % (40-54); Hemoglobin 11.5 g/dL (13.0-16.5); Immature Granulocytes Count 0.020 X10^3/uL (0.0-0.0); Mean Corp Hgb Conc 33.3 g/dL (32-36); Mean Corpuscular Volume 96.6 fL (80-94); Mean Platelet Vol. 9.6 fl (6.2-12.0); NRBC Flagged by Analyzer 0 % (0-5); Platelet Count 194 K/mm3 (150-450); RBC Distribution Width CV 14.6 % (11.6-14.6); RBC Distribution Width SD 52.5 fl (35.1-43.9); Red Blood Count 3.57 M/mm3 (4.6-6.2); White Blood Count 4.7 K/mm3 (4.4-11.0)
--- OUTSIDE RECORDS SUMMARY | 2025-04-21 15:55 | XMS RPT_ITS | CCD ---
Author Organization [facility] Inform ion Partnership [facility] Care Team Providers Care Drum Straightener Name Role Phone LYNN LEDEZMA Attending Unavailable ANDREY PEREZ Primary Care Unavailable Lynn Ledezma Primary Care Unavailable Andrey Morales Unavailable Allergies Allergy Classification Reported Allergen(s) Allergy Type Date of Onset Reaction(s) Facility (1 source) atorvastatin; Translations: [ATORVASTATIN] Drug Allergy 11-28-2015 [facility] Repository (1 source) Lovastatin; Translations: [LOVASTATIN] Drug Allergy 11-28-2015 [facility] Repository (1 source) oxaprozin; Translations: [OXAPROZIN] Drug Allergy 09-05-2008 [facility] Repository Medications Current Medications Medication Drug Class(es) Dates Sig (Normalized) Sig (Original) aspirin 81 mg chewable tablet (6 sources) Platelet Aggregation Inhibitor, Nonsteroidal Anti-inflammatory Drug Start: 11-18-2016 take 81 mg by mouth once daily Aspirin Active 81 MG PO DAILY@0800 November 18, 2016 12:00am carvedilol 25 mg oral tablet (6 sources) alpha-Adrenergic Hsyam, beta-Adrenergic Shyam Start: 11-18-2016 take 12.5 mg by mouth twice daily Carvedilol Active 12.5 MG PO TWICE A DAY November 18, 2016 12:00am 3 ml insulin aspart, human 100 unt/ml pen injector (20 sources) Insulin Analog Start: 09-23-2017 Insulin Aspart U-100 Active 5 UNITS SC WITH LUNCH September 23, 2017 12:00am Start: 12-01-2016 End: 12-18-2016 Insulin Aspart U-100 (Novolo g Flexpen U-100 Insulin) 100 UNITS/ML Flexpen Discontinued 3 UNITS SC THREE TIMES DAILY BEFORE MEALS December 01, 2016 12:00am December 18, 2016 8:10pm 3 ml insulin detemir 100 unt/ml pen injector (12 sources) Insulin Analog Start: 09-23-2017 Insulin Detemi r U-100 Active 20 UNITS SC AT BEDTIME September 23, 2017 12:00am Start: 12-01-2016 End: 12-18-2016 Insulin Detemir U-100 (Levem ir Flextouch U100 Insulin) 100 UNITS/ML Insuln.Pen Discontinued 10 UNITS SC AT BEDTIME December 01, 2016 12:00am December 18, 2016 8:09pm Start: 12-01-2016 End: 12-18-2016 Insulin Detemir U-100 (Levem ir Flextouch U-100 Insuln) 100 UNITS/ML Insuln.Pen Discontinued 10 UNITS SC AT BEDTIME December 01, 2016 2:36pm December 18, 2016 8:09pm iron carbonyl 45 mg oral tablet (6 sources) Start: 09-22-2017 take 45 mg by mouth once daily at mealtime Iron, Carbonyl Active 45 MG PO DAILY WITH MEALS September 22, 2017 12:00am lisinopril 40 mg oral tablet (18 sources) Angiotensin Converting Enzyme Inhibitor Start: 09-21-2017 take 40 mg by mouth at dinner Lisinopril Active 40 MG PO WITH DINNER September 21, 2017 12:00am Start: 12-01-2016 End: 09-21-2017 Lisinopril (Zestril) 40 MG t ablet Discontinued 20 MG PO DAILY 0 December 01, 2016 2:41pm September 21, 2017 9:35am Start: 11-18-2016 End: 12-01-2016 Lisinopril (Zestril) 40 MG t ablet Discontinued 20 MG PO TWICE A DAY November 18, 2016 12:00am December 01, 2016 2:42pm sennosides, mcc 8.6 mg oral tablet (6 sources) Start: 03-09-2017 take 1 tablet by mouth twice daily as needed Sennosides Active 1 TABLET PO TWICE DAILY NEEDED March 09, 2017 12:00am Completed/Discontinued Medications Medication Drug Class(es) Dates Sig (Normalized) Sig (Original) albuterol 0.83 mg/ml inhalation solution (6 sources) beta2-Adrenergic Agonist Start: 12-01-2016 End: 12-18-2016 take 2.5 mg by inhalation every two hours as needed Albuterol Sulfate Discontinued 2.5 MG INHALATION EVERY 2 HOURS NEEDED December 01, 2016 12:00am December 18, 2016 8:09pm albuterol 0.833 mg/ml / ipratropium bromide 0.167 mg/ml inhalation solution (6 sources) Anticholinergic, beta2-Adrenergic Agonist Start: 12-01-2016 End: 12-18-2016 take 1 mL by inhalation every six hours Ipratropium-Albuter ol Discontinued 3 ML INHALATION EVERY 6 HOURS December 01, 2016 12:00am December 18, 2016 8:10pm ascorbic acid 500 mg chewable tablet (6 sources) Vitamin C Start: 01-29-2017 End: 09-21-2017 take 1 tablet by mouth once daily Ascorbic Acid (Vitamin C) (Vitamin C) 500 MG Tab.Chew Discontinued 500 MG PO DAILY January 29, 2017 12:00am September 21, 2017 9:33am cholecalciferol 0.025 mg oral tablet (6 sources) Vitamin D Start: 12-01-2016 End: 12-18-2016 take 2 tablets by mouth once daily Cholecalciferol (Vitamin D3) (Vitamin D3) 1,000 UNIT tablet Discontinued 2000 UNIT PO DAILY December 01, 2016 12:00am December 18, 2016 8:10pm start 01/26/17 clobetasol propionate 0.5 mg/ml topical cream (6 sources) Corticosteroid Start: 11-18-2016 End: 09-21-2017 Clobetasol-Emollien t Discontinued 1 APPLIC TP DAILY NEEDED November 18, 2016 12:00am September 21, 2017 9:33am 0.4 ml enoxaparin sodium 100 mg/ml prefilled syringe (6 sources) Low Molecular Weight Heparin Start: 12-01-2016 End: 12-18-2016 Enoxaparin Discontinued 40 MG SC DAILY@0600 December 01, 2016 12:00am December 18, 2016 8:09pm while in [facility] ergocalciferol 1.25 mg oral capsule (6 sources) Provitamin D2 Compound Start: 12-01-2016 End: 12-18-2016 take 1 capsule by mouth every week Ergocalciferol (Vitamin D2) (Vitamin D) 50,000 UNIT capsule Discontinued 33387 UNIT PO Q7D December 01, 2016 12:00am December 18, 2016 8:10pm furosemide 40 mg oral tablet (12 sources) Loop Diuretic Start: 12-01-2016 End: 09-22-2017 take 40 mg by mouth once daily Furosemide Discontinued 40 MG PO DAILY December 18, 2016 8:10pm September 22, 2017 8:54am 12 hr guaiFENesin 1200 mg extended release oral tablet (20 sources) Start: 09-21-2017 End: 09-22-2017 take 1 tablet by mouth twice daily Guaifenesin (Mucinex) 1,200 MG tablet Discontinued 1200 MG PO TWICE A DAY September 21, 2017 12:00am September 22, 2017 8:54am Start: 03-09-2017 End: 09-21-2017 take 1 tablet by mouth twice daily as needed Guaifenesin (Mucinex) 600 MG Tab.Er.12h Discontinued 600 MG PO TWICE DAILY NEEDED March 09, 2017 12:00am September 21, 2017 9:33am Start: 12-01-2016 End: 01-22-2017 Guaifenesin (Mucinex) 600 MG Tab.Er.12h Discontinued 1200 MG PO TWICE A DAY December 01, 2016 2:41pm January 22, 2017 10:37am Start: 11-18-2016 End: 12-01-2016 take 1 tablet by mouth twice daily as needed Guaifenesin (Mucinex) 600 MG Tab.Er.12h Discontinued 600 MG PO TWICE DAILY NEEDED November 18, 2016 12:00am December 01, 2016 2:42pm hydroCHLOROthiazide 25 mg oral tablet (6 sources) Thiazide Diuretic Start: 11-18-2016 End: 12-01-2016 take 25 mg by mouth once daily Hydrochlorothiazide Discontinued 25 MG PO DAILY November 18, 2016 12:00am December 01, 2016 2:38pm Hydrocortisone (12 sources) Corticosteroid Start: 02-21-2017 End: 09-21-2017 Hydrocortisone 1% Crm Discontinued 1 APPLICATIO TOPICAL DAILY NEEDED February 21, 2017 4:25am September 21, 2017 9:33am Start: 02-21-2017 End: 09-21-2017 Hydrocortisone 1% Crm Discon tinued 1 APPLICATIO TOPICAL DAILY NEEDED February 20, 2017 11:00pm September 21, 2017 8:33am Start: 02-21-2017 End: 09-21-2017 Hydrocortisone 1% Crm Discon tinued 1 APPLICATIO TOPICAL DAILY NEEDED February 21, 2017 12:00am September 21, 2017 9:33am Start: 11-18-2016 End: 12-01-2016 Hydrocortisone Valerate Disc ontinued 1 APPLIC TP DAILY November 18, 2016 12:00am December 01, 2016 2:39pm Nut.Tx.Gluc Intol,Lf,Soy-Fiber (Glucerna 1.2 Graeme) 120 ML Liquid (6 sources) Start: 12-01-2016 End: 12-18-2016 take 1 mL by mouth four times daily Nut.Tx.Gluc Intol,Lf,Soy-Fiber (Glucerna 1.2 Graeme) 120 ML Liquid Discontinued 120 ML PO 4 TIMES DAILY December 01, 2016 2:36pm December 18, 2016 8:09pm Start: 12-01-2016 End: 12-18-2016 take 1 mL by mouth four times daily Nut.Tx.Gluc Intol,Lf,Soy-Fiber (Glucerna 1.2 Graeme) 120 ML Liquid Discontinued 120 ML PO 4 TIMES DAILY November 30, 2016 11:00pm December 18, 2016 7:09pm Start: 12-01-2016 End: 12-18-2016 take 1 mL by mouth four times daily Nut.Tx.Gluc Intol,Lf,Soy-Fiber (Glucerna 1.2 Graeme) 120 ML Liquid Discontinued 120 ML PO 4 TIMES DAILY December 01, 2016 12:00am December 18, 2016 8:09pm nystatin 245762 unt/ml oral suspension (6 sources) Polyene Antifungal Start: 12-01-2016 End: 12-18-2016 take 747686 [IU] by mouth four times daily Nystatin Discontinued 112432 UNIT PO 4 TIMES DAILY December 01, 2016 12:00am December 18, 2016 8:10pm through 12/11 ondansetron 8 mg disintegrating oral tablet (12 sources) Serotonin-3 Receptor Antagonist Start: 02-21-2017 End: 09-21-2017 take 1 tablet by mouth every eight hours as needed Ondansetron (Zofran Odt) 8 MG Tab.Rapdis Discontinued 8 MG PO EVERY 8 HOURS NEEDED February 21, 2017 12:00am September 21, 2017 9:33am Start: 12-01-2016 End: 12-18-2016 take 8 mg by mouth every eight hours as needed Ondansetron Hcl Discontinued 8 MG PO EVERY 8 HOURS NEEDED December 01, 2016 12:00am December 18, 2016 8:10pm polyethylene glycol 3350 41973 mg powder for oral solution (6 sources) Osmotic Laxative Start: 03-10-2017 End: 09-21-2017 take 17 g by mouth once daily Polyethylene Glycol 3350 Discontinued 17 GM PO DAILY March 10, 2017 12:00am September 21, 2017 9:33am potassium chloride 10 meq extended release oral capsule (6 sources) Start: 03-09-2017 End: 09-22-2017 take 10 mEq by mouth once daily Potassium Chloride Discontinued 10 MEQ PO DAILY March 09, 2017 12:00am September 22, 2017 8:54am Triamcinolone (12 sources) Corticosteroid Start: 03-09-2017 End: 09-21-2017 Triamcinolone Acetonide Discontinued March 09, 2017 11:57pm September 21, 2017 9:33am Start: 03-09-2017 End: 09-21-2017 Triamcinolone Acetonide Disc ontinued March 08, 2017 11:00pm September 21, 2017 8:33am Start: 03-09-2017 End: 09-21-2017 Triamcinolone Acetonide Disc ontinued March 09, 2017 12:00am September 21, 2017 9:33am Start: 11-18-2016 End: 12-01-2016 Triamcinolone 0.1% Cream (Ke nalog) 1 APPLIC Tube Discontinued 1 APPLIC TP NEEDED November 18, 2016 12:00am December 01, 2016 2:39pm Problems Problem Classification Problem Date Documented Da te Episodic/Chronic Acute and unspecified renal failure (6 sources) Injury of kidney; Translations: [Acute kidney failure, unspecified] 03-18-2018 Episodic Cancer of other GI organs; peritoneum (6 sources) Carcinoma of gallbladder; 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] 03-18-2018 Chronic Diabetes mellitus without complication (6 sources) Diabetes mellitus; Translations: [Type 2 diabetes mellitus without complications] 03-18-2018 Chronic Diabetes mellitus without complication (6 sources) Hyperglycemia; Translations: [Hyperglycemia, unspecified] 03-18-2018 Episodic Essential hypertension (6 sources) Hypertensive disorder; Translations: [Essential (primary) hypertension] 03-18-2018 Chronic Fluid and electrolyte disorders (12 sources) Hyponatremia; Translations: [Hypo-osmolality and hyponatremia] 03-18-2018 Episodic Intestinal obstruction without hernia (6 sources) Fecal impaction; Translations: [Fecal impaction] 09-21-2017 Episodic Nutritional deficiencies (6 sources) Deficiency of macronutrients; Translations: [Unspecified protein-calorie malnutrition] 03-18-2018 Chronic Open wounds of extremities (1 source) Unspecified open wound, right lower leg, initial encounter; Translations: [Wound of right lower extremity, initial encounter] Onset: 03-31-2025 Episodic Other aftercare (6 sources) Patient encounter status; Translations: [Encounter for adjustment and management of vascular access device] 03-18-2018 Episodic Other inflammatory condition of skin (6 sources) Psoriasis; Translations: [Psoriasis, unspecified] 03-18-2018 Chronic Other lower respiratory disease (6 sources) Dyspnea; Translations: [Shortness of breath] 03-18-2018 Episodic Pancreatic disorders (not diabetes) (12 sources) Gallstone pancreatitis; Translations: [Biliary acute pancreatitis without necrosis or infection] 03-18-2018 Episodic Residual codes; unclassified (6 sources) Edema, generalized; Translations: [Generalized edema] 03-18-2018 Episodic Results Test Name Value Interpretation Reference Range Facility Wound Cultureon 04-05-2025 WC Proteus mirabilis Amount Growth 3+ Staphylococcus aureus Staphylococcus aureus PSAG Amount Growth 2+ Pseudomonas aeruginosa Amount Growth Growth Proteus mirabilis: REACTION Enterococcus faecalis Ampicillin+Sulbac Islt HAIDER <=2 Cefepime Islt HAIDER <=0.12 S cefTRIAXone Islt HAIDER <=0.25 Ciprofloxacin Islt HAIDER <=0.06 S Gentamicin Islt HAIDER <=1 S levoFLOXacin Islt HAIDER <=0.12 S Meropenem Islt HAIDER <=0.25 S Pip+Tazo Islt HAIDER <=4 S TMP SMX Islt HAIDER <=20 S Staphylococcus aureus: REACTION cefOXitin Susc Islt NEG Doxycycline Islt HAIDER <=0.5 S Clindamycin Islt HAIDER 0.25 S Clindamycin.induced Susc Islt Erythromycin Islt HAIDER <=0.25 S Gentamicin Islt HAIDER <=0.5 S Linezolid Islt HAIDER 2 S Moxifloxacin Islt HAIDER <=0.25 S Oxacillin Susc Islt 0.5 S Tetracycline Islt HAIDER <=1 S TMP SMX Islt HAIDER <=10 S Vancomycin Islt HAIDER 1 S Pseudomonas aeruginosa: REACTION Cefepime Islt HAIDER 2 S Ciprofloxacin Islt HAIDER <=0.06 S levoFLOXacin Islt HAIDER 0.25 S Meropenem Islt HAIDER <=0.25 Pip+Tazo Islt HAIDER <=4 S Enterococcus faecalis: REACTION Ampicillin Islt HAIDER <=2 S Gentamicin Synergy Susc Islt SYN-S S Linezolid Islt HAIDER 2 S Streptomycin High Pot Susc Islt SYN-S Vancomycin Islt HAIDER 1 S Normal [facility] Comment on above: Performed By: #### M 100.3000, M100.1999 #### [facility] [address] [place], [address] Culture, Blood (WB)on 2024 CUB Blood cultures x2, f rom two different sites No growth in 48 hours. Normal [facility] Comment on above: Performed By: #### M 200.1000 #### [facility] [address] [place], [address] Gram Stainon 04-01-2025 GS Gram Stain 4+ Gram positive cocci 4+ Gram negative rods 3+ White Blood Cells No Epithelial cells Normal [facility] Comment on above: Performed By: #### M 100.3000, M100.1999 #### [facility] [address] [place], [address] Ankle min 3 Viewson 03-31-20 25 Ankle min 3 Views [facility] [address] [place] [address] Ankle min 3 Views MR#: [id number] Acct: [id number] Name: ENOCH ROJAS Sr. Rep #: [id number] : 1940 M 84 From: Virgilio Fox MD PCP: Lynn Ledezma MD Status: REG ER Study: Ankle min 3 Views Date of Exam: 03/31/25 Exam# [id number] Ordering Dr: Andrey Morales DO PROCEDURE: RIGHT ANKLE MIN 3 VIEWS 03/31/2025 REASON FOR EXAM: INJURY/PAIN TECHNIQUE: Procedure Code: RADANK Modality: DX Procedure: ANKLE MIN 3 VIEWS Laterality: Right COMPARISON: None. FINDINGS: No acute fracture or dislocation. Alignment is anatomic, although there is mild pes planus. Preserved visualized joint spaces. Mild dorsal calcaneal spurring. No osseous erosion or destruction or periosteal reaction. Mild generalized soft tissue swelling about the ankle with irregularity/ulceration at the lateral aspect. No subcutaneous emphysema or radiopaque foreign bodies appreciated. RAD/Ankle min 3 Views IMPRESSION: No acute or aggressive osseous abnormality. Reading Location: [id number] CC: Dr. Andrey Morales DO; Lynn Ledezma MD Track Repairer Helper: Signed Normal [facility] Basic Metabolic Profile (BMP )on 03-31-2025 BUN/CRE 46.3 RATIO High 10-20 [facility] Comment on above: Performed By: #### L 100.0100, L300.4310, L500.2500, L300.3900, L503.6005 #### [facility] [address] [place], [address] Calcium [Mass/Vol] 9.8 mg/dL Normal 7.6-11.0 [facility] Comment on above: Performed By: #### L 100.0100, L300.4310, L500.2500, L300.3900, L503.6005 #### [facility] [address] [place], [address] Chloride [Moles/Vol] 105 mmol/L Normal 98-[address] [facility] Comment on above: Performed By: #### L 100.0100, L300.4310, L500.2500, L300.3900, L503.6005 #### [facility] [address] [place], [address] CO2 [Moles/Vol] 24.7 mmol/L Normal 21.0-32.0 [facility] Comment on above: Performed By: #### L 100.0100, L300.4310, L500.2500, L300.3900, L503.6005 #### [facility] [address] [place], [address] Creatinine [Mass/Vol] 0.62 mg/dL Low 0.70-1.20 [facility] Comment on above: Performed By: #### L 100.0100, L300.4310, L500.2500, L300.3900, L503.6005 #### [facility] [address] [place], [address] ECRCL 66.50 ml/min Normal 50-250 [facility] Comment on above: Performed By: #### L 100.0100, L300.4310, L500.2500, L300.3900, L503.6005 #### [facility] [address] [place], [address] GAP 12 Normal 5-15 [facility] Comment on above: Performed By: #### L 100.0100, L300.4310, L500.2500, L300.3900, L503.6005 #### [facility] [address] [place], [address] GFR/1.73 sq M.predicted among non-blacks MDRD (S/P/Bld) [Vol rate/Area] 94 mL/min/{1.73_m2} Normal >60 [facility] Comment on above: Result Comment: mL/m in/1.73m2 CKD-EPI Creatinine Equation (2020) Performed By: #### L 100.0100, L300.4310, L500.2500, L300.3900, L503.6005 #### [facility] [address] [place], [address] Glucose [Mass/Vol] 92 mg/dL Normal 70-99 [facility] Comment on above: Performed By: #### L 100.0100, L300.4310, L500.2500, L300.3900, L503.6005 #### [facility] [address] [place], [address] Potassium [Moles/Vol] 3.8 mmol/L Normal 3.3-5.1 [facility] Comment on above: Performed By: #### L 100.0100, L300.4310, L500.2500, L300.3900, L503.6005 #### [facility] [address] [place], [address] Sodium [Moles/Vol] 142 mmol/L Normal 133-145 [facility] Comment on above: Performed By: #### L 100.0100, L300.4310, L500.2500, L300.3900, L503.6005 #### [facility] [address] [place], [address] Urea nitrogen [Mass/Vol] 29 mg/dL High 4-19 [facility] Comment on above: Performed By: #### L 100.0100, L300.4310, L500.2500, L300.3900, L503.6005 #### [facility] [address] [place], [address] CBC W/Diff, Automatedon 11-0 Absolute Lymph 1.41 X10 3/uL Normal 0.83-4.51 [facility] Comment on above: Performed By: #### L 100.0100, L300.4310, L500.2500, L300.3900, L503.6005 #### [facility] [address] [place], [address] Absolute Neut 2.0 X10 3/uL Normal 2.0-7.7 [facility] Comment on above: Performed By: #### L 100.0100, L300.4310, L500.2500, L300.3900, L503.6005 #### [facility] [address] [place], [address] Basophils/100 WBC (Bld) 1.0 % Normal 0-1 [facility] Comment on above: Performed By: #### L 100.0100, L300.4310, L500.2500, L300.3900, L503.6005 #### [facility] [address] [place], [address] Eosinophils/100 WBC (Bld) 2.5 % Normal 0-5 [facility] Comment on above: Performed By: #### L 100.0100, L300.4310, L500.2500, L300.3900, L503.6005 #### [facility] [address] [place], [address] Erythrocyte distribution width (RBC) [Ratio] 14.2 % Normal 11.6-14.6 [facility] Comment on above: Performed By: #### L 100.0100, L300.4310, L500.2500, L300.3900, L503.6005 #### [facility] [address] [place], [address] Hematocrit (Bld) [Volume fraction] 34.9 % Low 40-54 [facility] Comment on above: Performed By: #### L 100.0100, L300.4310, L500.2500, L300.3900, L503.6005 #### [facility] [address] [place], [address] Hemoglobin (Bld) [Mass/Vol] 11.4 g/dL Low 13.0-16.5 [facility] Comment on above: Performed By: #### L 100.0100, L300.4310, L500.2500, L300.3900, L503.6005 #### [facility] [address] [place], [address] IG% 0.000 Normal 0.0-0.9 [facility] Comment on above: Result Comment: IG% - Immature Granulocytes (promyelocytes, myelocytes and metamyelocytes) > 1% indicates that a LEFT SHIFT is Present. Performed By: #### L 100.0100, L300.4310, L500.2500, L300.3900, L503.6005 #### [facility] [address] [place], [address] Lymphocytes/100 WBC (Bld) 35.2 % Normal 19-41 [facility] Comment on above: Performed By: #### L 100.0100, L300.4310, L500.2500, L300.3900, L503.6005 #### [facility] [address] [place], [address] MCH (RBC) [Entitic mass] 31.9 pg Normal 27.0-32.0 [facility] Comment on above: Performed By: #### L 100.0100, L300.4310, L500.2500, L300.3900, L503.6005 #### [facility] [address] [place], [address] MCHC (RBC) [Mass/Vol] 32.7 g/dL Normal 32-36 [facility] Comment on above: Performed By: #### L 100.0100, L300.4310, L500.2500, L300.3900, L503.6005 #### [facility] [address] [place], [address] MCV (RBC) [Entitic vol] 97.8 fL High 80-94 [facility] Comment on above: Performed By: #### L 100.0100, L300.4310, L500.2500, L300.3900, L503.6005 #### [facility] [address] [place], [address] Monocytes/100 WBC (Bld) 12.5 % High 0-10 [facility] Comment on above: Performed By: #### L 100.0100, L300.4310, L500.2500, L300.3900, L503.6005 #### [facility] [address] [place], [address] Neutrophils/100 WBC (Bld) 48.8 % Normal 47-70 [facility] Comment on above: Performed By: #### L 100.0100, L300.4310, L500.2500, L300.3900, L503.6005 #### [facility] [address] [place], [address] Nucleated RBC (Bld) [#/Vol] 0 10*3/uL Normal 0-5 [facility] Comment on above: Performed By: #### L 100.0100, L300.4310, L500.2500, L300.3900, L503.6005 #### [facility] [address] [place], [address] Platelet mean volume (Bld) [Entitic vol] 9.7 fL Normal 6.2-12.0 [facility] Comment on above: Performed By: #### L 100.0100, L300.4310, L500.2500, L300.3900, L503.6005 #### [facility] [address] [place], [address] Platelets (Bld) [#/Vol] 238 10*3/uL Normal 150-450 [facility] Comment on above: Performed By: #### L 100.0100, L300.4310, L500.2500, L300.3900, L503.6005 #### [facility] [address] [place], [address] RBC (Bld) [#/Vol] 3.57 10*6/uL Low 4.6-6.2 [facility] Comment on above: Performed By: #### L 100.0100, L300.4310, L500.2500, L300.3900, L503.6005 #### [facility] [address] [place], [address] RDW SD 50.9 fl High 35.1-43.9 [facility] Comment on above: Performed By: #### L 100.0100, L300.4310, L500.2500, L300.3900, L503.6005 #### [facility] [address] [place], [address] WBC (Bld) [#/Vol] 4.0 10*3/uL Low 4.4-11.0 [facility] Comment on above: Performed By: #### L 100.0100, L300.4310, L500.2500, L300.3900, L503.6005 #### [facility] [address] [place], [address] CNOVon 03-31-2025 CNOV Office Visit (LEOPOLDO ) -- ENOCH ROJAS ([id number]) 1940 M Date Time Provider Department 03/31/25 2:40 PM LYNN LEDEZMA During your visit today, we recorded the following information about you: Temperature Pulse Respiration Blood pressure 98.9 degrees 99/minute 12/minute 176/89 Lynn Ledezma MD 03/31/2025 3:17 PM Addendum Family Medicine OUTPATIENT VISIT March 31, 2025 CC: Leg wound HPI: 84 year old male patient with a history of HTN Coreg, lisinopril, indapamide HLD T2DM Cholangiocarcinoma Gout on allopurinol Psoriasis OA BPH Last note in system was with oncology for cholangiocarinoma. Plan was as follows 1. 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 - No concerning findings on exam. - Reviewed CBC with pt. - CMP pending. - CT's yearly until 5 years out-due September 2020. - CT's due in September 2021. - Follow up in 6 months with CBC/CMP. - Pt. aware to call office with any questions/concerns. Patient presents with his son today. Presenting with right ankle wound. Patient stating it is fine and unable to describe now long it has been there for. Patient is not bothered by this wound, and does not wish to discuss it initially. He denies fever, chills, shortness of breath. Denies other wounds. He denies pain. He is diabetic, but insistent he is only a little diabetic since he takes only 4 or 5 units of insulin. He has no complaints, stating he is here today to get medication refills. Review of Systems PAIN ASSESSMENT: Negative for pain, history of chronic pain, or current treatment for a chronic pain condition. GENERAL: No weight loss, or fevers HEENT: Negative for frequent or significant headaches RESPIRATORY: Negative for cough, wheezing, shortness of breath CARDIOVASCULAR: Negative for chest pain, palpitations, PND or orthopnea GI: No nausea, vomiting, or diarrhea or abdominal pain. No WA bleeding or melana : No history of dysuria, frequency, urgency, or change in urine appearance NEURO: No history of headaches, numbness, weakness, or changes to vision or hearing Health maintenance: Depression Screening Never done Anxiety Screening Never done DTaP,Tdap,Td Vaccine(1 - Tdap) Never done Shingrix Vaccine(1 of 2) Never done Dilated Retinal Exam due on 02/29/2012 RSV Vaccine(1 - 1-dose 75+ series) Never done HbA1C due on 05/10/2016 Diabetic Foot Exam due on 11/27/2016 Urine Albumin:Creatinine Ratio due on 12/05/2016 LDL Cholesterol due on 08/06/2018 Advance Directive Discussion Never done Medicare Advantage Annual Wellness Visit Never done Influenza Vaccine(1) due on 01/23/2025 Covid-19 Vaccine( - season) Never done Allergies: ALLERGIES Allergen Reactions Atorvastatin Myalgia Lovastatin Myalgia Oxaprozin Shortness of Breath Suspected Medications: allopurinol (ZYLOPRIM) 100 mg tablet Take 100 mg by mouth once daily. indapamide (LOZOL) 2.5 mg tablet Take 1 tablet by mouth once daily. as needed for increased BP. lisinopril (ZESTRIL, PRINIVIL) 40 mg tablet Take 1 tablet by mouth once daily. (Patient taking differently: Take 40 mg by mouth twice daily. ) carvedilol (COREG) 25 mg tablet Take 0.5 tablets by mouth twice daily. (Patient taking differently: Take 25 mg by mouth twice daily. ) aspirin(ECOTRIN LOW STRENGTH 81 MG TAB) Take one(1) tablet daily. Past Medical History: PAST MEDICAL HISTORY Diagnosis Date ATHEROSCLEROSIS NOS 10/08/2005 GOUT NOS 03/05/2007 Hearing loss 02/21/2009 HYPERLIPIDEMIA NEC/NOS 01/23/2011 HYPERTENSION NOS 12/14/2002 Hypertrophy of prostate without urinary obstruction and other lower urinary tract symptoms (LUTS) 03/05/2007 Impaired fasting glucose 05/20/2010 PSORIASIS: disseminated plaques and guttate lesions 06/25/2010 Transient ischemic attack (TIA), and cerebral infarction without residual deficits(V12.54) 02/21/2009 Type II or unspecified type diabetes mellitus without mention of complication, not stated as uncontrolled 01/23/2011 Social History: SOCIAL HISTORY[1] Family History: Family History Problem Relation Age of Onset Heart Sister BP 176/89 Pulse 99 Temp 37.2 ?C (98.9 ?F) (Temporal) Resp 12 General: Awake, alert, not in acute distress 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 He is too weak to take any steps without two person assist. RESP: Clear lungs bilateral with good air entry, No increased work of breathing CVS: RRR, No murmur. Pulses 2+. GI: Abdomen is soft, non distended, non tender. Skin/Other: He has a large, approximately 5 inch irregularly bordered wound on his right lateral malleolus which is foul smelling and with weeping discharge. The entire lower extremity is edematous, more so than more mild pitting edema of the left ruiz to the knee, erythematous t (more content not included)... Normal [facility] Emergency Department Summary on 03-31-2025 Emergency Department Summary [facility] Medical Records Department [address] [place] [address] Emergency Department Summary 03/31/25 MR#: [id number] Acct: [id number] Name: ENOCH ROJAS Sr. Rep #: [id number] : 1940 84 From: Andrey Morales DO PCP: Lynn Ledezma MD Status:REG ER Location: ED HPI History of Present Illness Chief Complaint: Wound Informant: patient Onset/Context/Timing Onset: Month(s) (2) Context: Gradual Onset Timing: Continuous Quality: Dull Location: Right ankle Worsened by: Nothing Relieved by: Vaseline and rubbing alcohol Narrative Narrative: Patient presents with pain and swelling to his right ankle. Patient states it has been getting progressively worse over the past 2 months. Patient has an open wound on his right ankle. Patient states he has been using Vaseline and rubbing alcohol on it. Patient states that this has been helping somewhat. Patient describes his pain as dull. Patient states it is constant. Patient denies any trauma or injury. Patient denies paresthesias or weakness. Patient denies any fevers or chills. [facility] Medical History Former smoker Hyperglycemia Hyponatremia BRIELLE (acute kidney injury) Encounter for adjustment or management of vascular access device Diabetes mellitus Shortness of breath Anasarca Protein malnutrition Gallbladder carcinoma Gallstone pancreatitis Psoriasis Hypertension Hypokalemia Acute pancreatitis Home Medications ???Medication ???Instructions ???Recorded ???Last Taken ???Type aspirin 81 mg chewable tablet 81 mg PO DAILY@0800 heart health 0 11/18/16 12/01/16 10:56 History carvedilol 25 mg tablet 12.5 mg PO BID heart, blood 01/29/17 History pressure lisinopril 40 mg tablet 40 mg PO DINNER htn 09/21/17 Unkno wn History insulin aspart U-100 100 unit/mL 5 units subcut BREAKFAST 09/23/17 Unknown Rx (3 mL) subcutaneous pen insulin aspart U-100 100 unit/mL 5 units subcut DINNER 09/23/17 Unk nown Rx (3 mL) subcutaneous pen insulin aspart U-100 100 unit/mL 5 units subcut LUNCH 09/23/17 Unkn own Rx (3 mL) subcutaneous pen insulin detemir U-100 100 unit/mL 20 units subcut QHS 09/23/17 Unkn own Rx (3 mL) subcutaneous pen allopurinol 100 mg tablet 100 mg PO DAILY 03/31/25 Unknown H istory amoxicillin 875 mg-potassium 875 mg PO Q12H #20 TABLETS 5 Unknown Rx clavulanate 125 mg tablet indapamide 1.25 mg tablet 1.25 mg PO DAILY 03/31/25 Unknown History insulin detemir U-100 100 unit/mL 4 unit subcut QHS PRN hyperglycem ia 03/31/25 Unknown History (3 mL) subcutaneous pen (Levemir FlexPen) insulin lispro 100 unit/mL 5 unit subcut TID diabetes mellitu s 03/31/25 Unknown History subcutaneous pen Allergy/AdvReac Type Severity Reaction Status Date / Time No Known Allergies Allergy Verified 03/31/25 15:25 Surgical History History of cholecystectomy Social History Smoking Status: Former smoker ROS ROS ED Constitutional Constitutional ED: Denies chills or fever(s) Eyes Eyes: Denies blurry vision or change in vision ENT ENT ED: Denies rhinorrhea or sore throat Cardiovascular Cardiovascular: Denies chest pain or palpitations Respiratory/Chest Respiratory/Chest: Denies cough or dyspnea Gastrointestinal Gastrointestinal: Denies nausea or vomiting Genitourinary Genitourinary ED: Denies dysuria or hematuria Musculoskeletal Musculoskeletal: Reports back pain; Denies neck pain Integumentary Denies abscess or rash Neurologic Neurologic: Denies headache(s) or weakness Allergic/Immunologic Allergic/Immunologic ED: Denies mouth swelling or urticaria EXAM Physical Exam Const Vital Signs: 03/31/25 15:25 Temperature 98 F Temperature Source Oral Pulse Rate 69 Respiratory Rate 18 Blood Pressure 172/81 H Blood Pressure Mean 111 Pulse Ox 100 Oxygen Delivery Method Room Air Positive well nourished and well developed General Appearance ED: well developed and NAD HEENT Reports moist mucous membranes Neck supple and no JVD Resp normal respiratory effort and clear to auscultation bilaterally Cardio regular rate and regular rhythm GI non-tender and non-distended Palpation: soft Extremity Extremity Narrative: There is a superficial ulceration over the lateral aspect of the right ankle. It extends into the dermis. There is some mild drainage noted. There is tenderness and edema over the lateral aspect of the right ankle. There is full range of motion of the right ankle. Sensation was intact to light touch in all digits. Pedal pulses are equal bilaterally. Strength is 5/5 bilaterally in the (more content not included)... Normal [facility] Lactic Acidon 03-31-2025 Lactate [Moles/Vol] mmol/L Normal 0.0-2.0 [facility] Comment on above: Order Comment: Y Performed By: #### L 100.0100, L300.4310, L500.2500, L300.3900, L503.6005 #### [facility] [address] [place], [address] Partial Thromboplast Timeon 03-31-2025 aPTT Coag (Bld) [Time] 31.2 s Normal 24.1-36.2 [facility] Comment on above: Performed By: #### L 100.0100, L300.4310, L500.2500, L300.3900, L503.6005 #### [facility] [address] [place], [address] Prothrombin Time w/INRon INR Coag (PPP) [Relative time] 1.1 {INR} Normal [facility] Comment on above: Performed By: #### L 100.0100, L300.4310, L500.2500, L300.3900, L503.6005 #### [facility] [address] [place], [address] PT Coag (PPP) [Time] 14.5 s Normal 11.7-14.[address] [facility] Comment on above: Performed By: #### L 100.0100, L300.4310, L500.2500, L300.3900, L503.6005 #### [facility] [address] [place], [address] Urinalysis, Completeon 03-31 EPI,SQUAMOUS 0-5 SEEN Normal 0-5 [facility] Comment on above: Order Comment: CLEAN CATCH Performed By: #### L 400.0001 #### [facility] [address] [place], [address] RBC 0-5 SEEN Normal 0-5 [facility] Comment on above: Order Comment: CLEAN CATCH Performed By: #### L 400.0001 #### [facility] [address] [place], [address] WBC 0-5 SEEN Normal 0-5 [facility] Comment on above: Order Comment: CLEAN CATCH Performed By: #### L 400.0001 #### [facility] [address] [place], [address] BACTERIA 0 SEEN Normal None Seen [facility] Comment on above: Order Comment: CLEAN CATCH Performed By: #### L 400.0001 #### [facility] [address] [place], [address] Mucus Ql (Urine sed) 0 SEEN Normal [facility] Comment on above: Order Comment: CLEAN CATCH Performed By: #### L 400.0001 #### [facility] [address] [place], [place], [id number] CNPNon 02-24-2025 [facility] Telephone (4CQ) -- ENOCH ROJAS ([id number]) 1940 M Date Time Provider Department 02/24/25 DAMON CANELA 4CQ During your visit today, we recorded the following information about you: Anika Ly 02/24/2025 2:30 PM Signed Patient is calling and wanting to speak with Dr Canela in regards to medications I advise he has not been seen since 2015 and that may not be able to happen, he stated he is friends with provider and knows he would call him back if I placed a message. Damon Canela MD 02/24/2025 4:43 PM Signed No. He should contact PCP/prescriber. Allergies As of Date: 02/24/2025 Noted Allergy Reaction ATORVASTATIN 11/28/2015 17 - Myalgia LOVASTATIN 11/28/2015 17 - Myalgia OXAPROZIN 09/05/2008 12 - Shortness of Breath Comments: Suspected Date Reviewed: 05/29/2021 Reviewed by: Pamella Estrada, RT(R) - Fully Assessed Reason for Visit: Patient Question [8294] Prescriptions as of 04/01/2025 - allopurinol (ZYLOPRIM) 100 mg tablet Take 100 mg by mouth once daily. - indapamide (LOZOL) 2.5 mg tablet Take 1 tablet by mouth once daily. as needed for increased BP. - lisinopril (ZESTRIL, PRINIVIL) 40 mg tablet Take 1 tablet by mouth once daily. - carvedilol (COREG) 25 mg tablet Take 0.5 tablets by mouth twice daily. - aspirin(ECOTRIN LOW STRENGTH 81 MG TAB) Take one(1) tablet daily. Problem List As Of Date 02/24/2025 Noted Resolved Essential hypertension [I10] 12/14/2002 Other and unspecified hyperlipidemia [E78.5] 01/23/2011 GENERAL OSTEOARTHROSIS [M15.9] 10/08/2005 Generalized and unspecified atherosclerosis [I7*10/08/2005 11/28/2015 NECK MASS [R22.0, R22.1] 10/08/2005 01/23/2011 GOUT NOS [M10.9] 03/05/2007 BPH w/o urinary obs/LUTS [N40.0] 03/05/2007 HYPERGLYCEMIA [R79.89] 10/08/2007 01/23/2011 Hearing Loss [H91.90] 02/21/2009 Anxiety [F41.9] 02/21/2009 01/23/2011 Insomnia [G47.00] 02/21/2009 01/23/2011 Impaired fasting glucose [R73.01] 05/20/2010 08/05/2011 PSORIASIS: disseminated plaques and guttate les*06/25/2010 Xerosis cutis [L85.3] 06/25/2010 11/28/2015 Pruritus [L29.9] 06/25/2010 11/24/2012 Impaired fasting blood sugar [R73.01] 11/24/2012 11/28/2015 Constipation [K59.00] 10/04/2014 Controlled type 2 diabetes mellitus without com*11/28/2015 Abnormality of gait [R26.9] 11/28/2015 Noncompliance with medication regimen [Z91.148] 11/29/2015 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 - Docusate Sodium 100 mg tab (Discontinued) Take 1 tablet by mouth twice daily. - furosemide (LASIX) 40 mg tablet (Discontinued) Take 1/2 tablet by mouth once daily if needed. - guaiFENesin (MUCINEX) 600 mg 12 hr tablet (Discontinued) Take 1,200 mg by mouth twice daily as needed. - HUMALOG KWIKPEN INSULIN 100 unit/mL inpn (Discontinued) Inject 5 Units subcutaneously three times daily before meals. PRN - predniSONE (DELTASONE) 5 mg tablet (Discontinued) Take 5 mg by mouth once daily. - MINERAL OIL/PETROLATUM,WHITE (EUCERIN TOPICAL) (Discontinued) Apply 1 application to affected area twice daily as needed. Encounter Status:Closed by ANIKA LY on 04/01/25 [facility] Brian 02-02-2025 [facility] Telephone (4CQ) -- ENOCH ROJAS ([id number]) 1940 M Date Time Provider Department 02/02/25 LYNN LEDEZMA 4CQ During your visit today, we recorded the following information about you: Abril Valadez 02/02/2025 12:07 PM Signed Pt states his previous PCP dropped him as he has not been seen in over a year. Pt is establishing care first available in Mar. Pt is concerned about not having medication till then. Pt was advised he needed to establish care first but patient wished to have message sent to provider asking if she can fill til he is seen. Pt states he takes: Indapamide 1.25 mg Allopurinol 100 mg Lisinopril 40 mg Carvedilol 25 mg [facility] [facility] [employer] [place] Summer Allison MA 02/06/2025 8:21 AM Signed Pulled dispense report for medication and pended for 90 days to get through till seen 03/31 allopurinol 100 mg tablet Sig: take 1 tablet by mouth daily Dispensed: 01/24/2025 12:00 AM Written: 01/24/2025 Unit strength: 100 mg Unit form: tablet Days supply: 30 Quantity: 30 each Refills remainin Pharmacy: [facility] [address] [place] [address] [address] [facility] [phone] [address] [facility] [address] Authorizing provider: LOPEZ KEITH MD Received from: [facility] (Fill History, Ambulatory) Brand or Generic: Generic carvedilol 25 mg tablet Sig: take 1 tablet by mouth twice daily Dispensed: 12/09/2024 12:00 AM Written: 09/10/2024 Unit strength: 25 mg Unit form: tablet Days supply: 90 Quantity: 180 each Refills remainin Pharmacy: [facility] [address] [place] [address] [address] [facility] [phone] [address] [facility] [address] Authorizing provider: Andrey Perez MD [address] [facility] [address] Received from: [facility] (Fill History, Ambulatory) Brand or Generic: Generic indapamide 1.25 mg tablet Sig: take 1 tablet by mouth daily Dispensed: 01/24/2025 12:00 AM Written: 01/24/2025 Unit strength: 1.25 mg Unit form: tablet Days supply: 30 Quantity: 30 each Refills remainin Pharmacy: [facility] [address] - [place] [address] - [address] - [phone] [address] [facility] [address] Authorizing provider: LOPEZ KEITH MD Received from: [facility] (Fill History, Ambulatory) Brand or Generic: Generic lisinopril 40 mg tablet Sig: take 1 (one) tablet by mouth twice daily Dispensed: 12/12/2024 12:00 AM Written: 12/11/2024 Unit strength: 40 mg Unit form: tablet Days supply: 30 Quantity: 60 each Refills remainin Pharmacy: [facility] [address] - [place] [address] - [address] [phone] [address] [facility] [address] Authorizing provider: Andrey Perez MD [address] [facility] [address] Received from: [facility] (Fill History, Ambulatory) Brand or Generic: Generic SISI Cadena Julia, LPN 02/08/2025 4:56 PM Signed Patient rescheduled 02/24/25 at 11:20. Attempted to notify patient no answer. Detailed message left to return if that appointment doesn't work. Princess Brown RN 02/09/2025 10:03 AM Signed Patient returns call and message below reviewed. Appt date and time verified with verbalized understanding. Patient requests to add Levemir to list of medications. Added as med update. Patient aware prescriptions to be filled at time of establish care appointment. Princess Brown RN Allergies As of Date: 02/02/2025 Noted Allergy Reaction ATORVASTATIN 11/28/2015 17 - Myalgia LOVASTATIN 11/28/2015 17 - Myalgia OXAPROZIN 09/05/2008 12 - Shortness of Breath Comments: Suspected Date Reviewed: 05/29/2021 Reviewed by: Pamella Estrada, RT(R) - Fully Assessed Reason for Visit: Patient Question [8193] Visit Diagnosis:Unspecified essential hypertension [I10] Prescriptions as of 02/09/2025 - LEVEMIR FLEXTOUCH U-100 INSULIN 100 unit/mL (3 mL) injection pen Inject 4 Units subcutaneously as directed. Hold if blood sugar is less than 100 - predniSONE (DELTASONE) 5 mg tablet Take 5 mg by mouth once daily. - allopurinol (ZYLOPRIM) 100 mg tablet Take 100 mg by mouth once daily. - indapamide (LOZOL) 2.5 mg tablet Take 1 tablet by mouth once daily. as needed for increased BP. - HUMALOG KWIKPEN INSULIN 100 unit/mL inpn Inject 5 Units subcutaneously three times daily before meals. PRN - lisinopril (ZESTRIL, PRINIVIL) 40 mg tablet Take 1 tablet by mouth once daily. - guaiFENesin (MUCINEX) 600 mg 12 hr tablet Take 1,200 mg by mouth twice daily as needed. - Docusate Sodium 100 mg tab Take 1 tablet by mouth twice daily. - MINERAL OIL/PETROLATUM,WHITE (EUC (more content not included)... Normal [facility] No Panel InformationOrdered By: Andrey Perez on 08-14-2023 Urine Microalbumin/Creatinine Ratio 12.5 mg/g CRE <30 [facility] Thin prep Papanicolaou smear with manual screeningOrdered By: Andrey Perez on 08-14-2023 Thin prep Papanicolaou smear with manual screening 9.9 mg/L NO RANGE EST. [facility] Urine creatinine measurement (mass/volume)Ordered By: Andrey Perez on 08-14-2023 Creatinine (U) [Mass/Vol] 67.00 mg/dL NO RANGE EST. [facility] Absolute lymphocyte countOrd ered By: Andrey Perez on 08-10-2023 Lymphocytes Auto (Unsp spec) [#/Vol] 1.02 10*3/uL 0.83-4.51 [facility] Albumin Elph [Mass/Vol]Order ed By: Andrey Perez on 08-10-2023 Albumin [Mass/Vol] 3.3 g/dL 2.9-4.4 [facility] Automated lymphocyte count a s percentage of total leukocytesOrdered By: Andrey Perez on 08-10-2023 Lymphocytes/100 WBC Auto (Unsp spec) 20.0 % 19-41 [facility] Basophil percentageOrdered B y: Andrey Perez on 08-10-2023 Basophils/100 WBC (Bld) 0.8 % 0-1 [facility] Bilirubin [Mass/Vol] 0.50 mg/dL 0.20-1.[address] [facility] Comment on above: For patients on eltr ombopag therapy, use of Dimension [place] TBIL is not recommended. Chloride [Moles/Vol] 105 mmol/L 98-[address] [facility] Cholesterol [Mass/Vol] 190 mg/dL <200 [facility] Comment on above: <200 mg/dL Desirable 200-240 mg/dL Borderline >240 mg/dL High Risk Eosinophils/100 WBC (Bld) 3.7 % 0-5 [facility] Glucose [Mass/Vol] 156 mg/dL 74-106 [facility] Comment on above: Fasting Glucose resu lt greater than or equal to 126 mg/dL suggests DIABETES MELLITUS per A.D.A. criteria. Hemoglobin (Bld) [Mass/Vol] 12.8 g/dL 13.0-16.5 [facility] Monocytes/100 WBC (Bld) 8.1 % 0-10 [facility] Neutrophils (Bld) [#/Vol] 3.4 10*3/uL 2.0-7.7 [facility] Neutrophils/100 WBC (Bld) 67.0 % 47-70 [facility] Potassium [Moles/Vol] 4.1 mmol/L 3.5-5.1 [facility] Protein [Mass/Vol] 8.5 g/dL 6.4-8.2 [facility] Sodium [Moles/Vol] 138 mmol/L 136-145 [facility] WBC (Bld) [#/Vol] 5.1 10*3/uL 4.4-11.0 [facility] Determination of erythrocyte mean corpuscular volume (MCV)Ordered By: Andrey Perez on 08-10-2023 MCV (RBC) [Entitic vol] 95.8 fL 80-94 [facility] Erythrocyte distribution wid th ratioOrdered By: Andrey Perez on 08-10-2023 Erythrocyte distribution width (RBC) [Ratio] 13.3 % 11.6-14.6 [facility] Erythrocyte distribution wid th standard deviationOrdered By: Andrey Perez on 08-10-2023 Erythrocyte distribution width (RBC) [Entitic vol] 47.5 fL 35.1-43.9 [facility] Erythrocyte sedimentation ra teOrdered By: Andrey Perez on 08-10-2023 ESR (Bld) [Velocity] 74 mm/h 0-[address] [facility] Hematocrit Auto (Bld) [Volum e fraction]Ordered By: Andrey Perez on 08-10-2023 Hematocrit (Bld) [Volume fraction] 39.0 % 40-54 [facility] Immature granulocytes/100 WB C Auto (Bld)Ordered By: Andrey Perez on 08-10-2023 Immature granulocytes/100 WBC (Bld) 0.400 % 0.0-0.9 [facility] Comment on above: IG% - Immature Granu locytes (promyelocytes, myelocytes and metamyelocytes) > 1% indicates that a LEFT SHIFT is Present. Laboratory - Chemistry and C hemistry - challengeOrdered By: Andrey Perez on 08-10-2023 Albumin/Globulin [Mass ratio] 0.7 {ratio} 0.9-2.4 [facility] ALP [Catalytic activity/Vol] 236 U/L 45-117 [facility] ALT [Catalytic activity/Vol] 18 U/L 16-61 [facility] Amylase [Catalytic activity/Vol] 30 U/L 15-85 [facility] Cholesterol in HDL [Mass/Vol] 35 mg/dL >40 [facility] Comment on above: The drugs N-Acetylcy steine and Metamizole may falsely depress this assay. Reference Range HDL <40 mg/dL Low HDL Cholesterol HDL >or= 60 mg/dL High HDL Cholesterol CO2 [Moles/Vol] 24.0 mmol/L 21.0-32.0 [facility] Cobalamin (Vitamin B12) [Mass/Vol] 367 pg/mL 211-911 [facility] Ferritin [Mass/Vol] 597 ng/mL 26-388 [facility] Globulin (S) [Mass/Vol] 4.9 g/dL 2.2-4.2 [facility] Urea nitrogen/Creatinine [Mass ratio] 40.7 mg/mg 10-20 [facility] Laboratory - Hematology and Cell countsOrdered By: Andrey Perez on 08-10-2023 MCH (RBC) [Entitic mass] 31.4 pg 27.0-32.0 [facility] MCHC (RBC) [Mass/Vol] 32.8 g/dL 32-36 [facility] Nucleated RBC/100 WBC (Bld) [Ratio] 0 % 0-5 [facility] Platelet mean volume (Bld) [Entitic vol] 9.9 fL 6.2-12.0 [facility] Platelets (Bld) [#/Vol] 254 10*3/uL 150-450 [facility] No Panel InformationOrdered By: Andrey Perez on 08-10-2023 Addendum Document Comment . [facility] Comment on above: The SPE pattern appe ars unremarkable. Evidence ofmonoclonal protein is not apparent. Jjkzl-9-Opnymmegs 0.2 g/dL 0.0-0.4 [facility] Jktqm-8-Ihyjsutcg 1.0 g/dL 0.4-1.0 [facility] C-Reactive Protein Extended Range 15.70 mg/L 0.0-3.0 [facility] Comment on above: C-Reactive Protein ( CRP) provides useful information for thediagnosis, therapy and monitoring of inflammatory processesand associated diseases. For the evaluation of Relative Riskfor Cardiovascular Disease, a High Sensitivity CRP (HSCRP)should be ordered. Estimated GFR (MDRD) Amer 117 mL/min >60 [facility] Comment on above: GFR Calc Estimated GFR (MDRD) Non-Af Amer 97 mL/min >60 [facility] Comment on above: Non- GFR Calc Folate 16.60 ng/mL 3.1-55.4 [facility] Gamma Globulins 1.8 g/dL 0.4-1.8 [facility] Tumor Marker Alpha Fetoprotein < 1.8 ng/mL 0.0-6.4 [facility] Comment on above: [facility] El ectrochemiluminescence Immunoassay(ECLIA)Values obtained with different assay methods or kits cannotbe used interchangeably. Results cannot be interpreted asabsolute evidence of the presence or absence of malignantdisease.This test is not interpretable in females.Performed at: [employer] [id number] Director: Av Gomez PhD, Phone: [phone] Protein Fractions Elph [Inte rp]Ordered By: Andrey Perez on 08-10-2023 Protein Fractions [Interp] Comment . [facility] Comment on above: Protein electrophore sis scan will follow via computer,mail, or spine specialist delivery. RBC Auto (Bld) [#/Vol]Ordere d By: Andrey Perez on 08-10-2023 RBC (Bld) [#/Vol] 4.07 10*6/uL 4.6-6.2 [facility] Serum albumin to globulin ra elise by protein electrophoresisOrdered By: Andrey Perez on 08-10-2023 Albumin/Globulin Elph [Mass ratio] 0.8 0.7-1.7 [facility] Serum globulin measurement ( mass/volume)Ordered By: Andrey Perez on 08-10-2023 Globulin (S) [Mass/Vol] 4.3 g/dL 2.2-3.9 [facility] Serum or plasma beta globuli n measurement by electrophoresis (mass/volume)Ordered By: Andrey Perez on 08-10-2023 Beta globulin Elph [Mass/Vol] 1.3 g/dL 0.7-1.3 [facility] Serum or plasma calcium connie urement (mass/volume)Ordered By: Andrey Perez on 08-10-2023 Calcium [Mass/Vol] 9.8 mg/dL 8.5-10.1 [facility] Serum or plasma creatinine m easurement (mass/volume)Ordered By: Andrey Perez on 08-10-2023 Creatinine [Mass/Vol] 0.81 mg/dL 0.70-1.30 [facility] Comment on above: The validity of the calculated GFR & GFRAA in patients over 70 years has not been determined. Clinical correlation is essential. Serum or plasma protein mono clonal measurement by electrophoresis (mass/volume)Ordered By: Andrey Perez on 08-10-2023 Protein.monoclonal Elph [Mass/Vol] Not Observed g/dL Not Observed [facility] Serum or plasma thyroid stim ulating hormone (TSH) measurement (units/volume)Ordered By: Andrey Perez on 08-10-2023 TSH Qn 1.75 uIU/mL 0.358-3.74 [facility] Serum or plasma urea nitroge n measurement (mass/volume)Ordered By: Andrey Perez on 08-10-2023 Urea nitrogen [Mass/Vol] 33 mg/dL 7-18 [facility] Thin prep Papanicolaou smear with manual screeningOrdered By: Andrey Perez on 08-10-2023 Thin prep Papanicolaou smear with manual screening 3.6 g/dL 3.2-5.0 [facility] Thin prep Papanicolaou smear with manual screening 17 U/L 15-37 [facility] Thin prep Papanicolaou smear with manual screening 9 5-15 [facility] Total protein bloodOrdered B y: Andrey Perez on 08-10-2023 Protein [Mass/Vol] 7.6 g/dL 6.0-8.5 [facility] Whole blood hemoglobin A1c/t otal hemoglobin ratio (mass fraction)Ordered By: Andrey Perez on 08-10-2023 HbA1c (Bld) [Mass fraction] 6.8 % 3.8-5.6 [facility] Comment on above: Normal < 5.7 % Predi abetic 5.7 - 6.4 % Diabetic >or= 6.5 % Please note range changes. Glucose Glucometer (BldC) [M ass/Vol]Ordered By: Joel Tong on 05-29-2023 Glucose [Mass/Vol] 108 mg/dL 74-106 [facility] Comment on above: MANAGEMENT OF PATIEN T CARE PER NURSING PROTOCOL Absolute lymphocyte countOrd ered By: Joel Tong on 05-28-2023 Lymphocytes Auto (Unsp spec) [#/Vol] 1.13 10*3/uL 0.83-4.51 [facility] Basophil percentageOrdered B y: Joel Tong on 05-28-2023 Basophil percentage 0 SEEN /hpf 0-[address] [facility] Basophils/100 WBC (Bld) 0.8 % 0-1 [facility] Bilirubin [Mass/Vol] 0.30 mg/dL 0.20-1.[address] [facility] Comment on above: For patients on eltr ombopag therapy, use of Dimension [place] TBIL is not recommended. Chloride [Moles/Vol] 107 mmol/L 98-[address] [facility] Eosinophils/100 WBC (Bld) 3.0 % 0-5 [facility] Glucose [Mass/Vol] 131 mg/dL 74-106 [facility] Comment on above: Fasting Glucose resu lt greater than or equal to 126 mg/dL suggests DIABETES MELLITUS per A.D.A. criteria. Neutrophils (Bld) [#/Vol] 2.0 10*3/uL 2.0-7.7 [facility] Neutrophils/100 WBC (Bld) 53.4 % 47-70 [facility] Potassium [Moles/Vol] 3.9 mmol/L 3.5-5.1 [facility] Protein [Mass/Vol] 7.7 g/dL 6.4-8.2 [facility] Sodium [Moles/Vol] 142 mmol/L 136-145 [facility] WBC (Bld) [#/Vol] 3.7 10*3/uL 4.4-11.0 [facility] Bilirubin Test strip Ql (U)O rdered By: Joel Tong on 05-28-2023 Bilirubin Ql (U) Negative Negative [facility] Blood erythrocytes count (nu mber/volume)Ordered By: Joel Tong on 05-28-2023 RBC (Bld) [#/Vol] 3.75 10*6/uL 4.6-6.2 [facility] Blood hemoglobin measurement (mass/volume)Ordered By: Joel Tong on 05-28-2023 Hemoglobin (Bld) [Mass/Vol] 11.7 g/dL 13.0-16.5 [facility] Blood lymphocytes/100 leukoc ytesOrdered By: Joel Tong on 05-28-2023 Lymphocytes/100 WBC (Bld) 31.0 % 19-41 [facility] Blood monocytes/100 leukocyt esOrdered By: Joel Tong on 05-28-2023 Monocytes/100 WBC (Bld) 11.5 % 0-10 [facility] Blood platelet mean volumeOr dered By: Joel Tong on 05-28-2023 Platelet mean volume (Bld) [Entitic vol] 9.1 fL 6.2-12.0 [facility] Determination of erythrocyte mean corpuscular volume (MCV)Ordered By: Joel oTng on 05-28-2023 MCV (RBC) [Entitic vol] 96.8 fL 80-94 [facility] Glucose Glucometer (BldC) [M ass/Vol]Ordered By: Joel Tong on 05-28-2023 Glucose [Mass/Vol] 121 mg/dL 74-106 [facility] Comment on above: MANAGEMENT OF PATIEN T CARE PER NURSING PROTOCOL Hematocrit Auto (Bld) [Volum e fraction]Ordered By: Joel Tong on 05-28-2023 Hematocrit (Bld) [Volume fraction] 36.3 % 40-54 [facility] Ketones Test strip Ql (U)Ord ered By: Joel Tong on 05-28-2023 Ketones Ql (U) Negative Negative [facility] Laboratory - Chemistry and C hemistry - challengeOrdered By: Joel Tong on 05-28-2023 ALP [Catalytic activity/Vol] 197 U/L 45-117 [facility] ALT [Catalytic activity/Vol] 15 U/L 16-61 [facility] CO2 [Moles/Vol] 28.0 mmol/L 21.0-32.0 [facility] Globulin (S) [Mass/Vol] 4.4 g/dL 2.2-4.2 [facility] Urea nitrogen/Creatinine [Mass ratio] 53.0 mg/mg 10-20 [facility] Laboratory - Hematology and Cell countsOrdered By: Joel Tong on 05-28-2023 Erythrocyte distribution width (RBC) [Entitic vol] 50.2 fL 35.1-43.9 [facility] Erythrocyte distribution width (RBC) [Ratio] 14.2 % 11.6-14.6 [facility] Immature granulocytes/100 WBC (Bld) 0.300 % 0.0-0.9 [facility] Comment on above: IG% - Immature Granu locytes (promyelocytes, myelocytes and metamyelocytes) > 1% indicates that a LEFT SHIFT is Present. MCH (RBC) [Entitic mass] 31.2 pg 27.0-32.0 [facility] Nucleated RBC/100 WBC (Bld) [Ratio] 0 % 0-5 [facility] Laboratory - Microbiology an d Antimicrobial susceptibilityOrdered By: Joel Tong on 05-28-2023 SARS-CoV-2 (COVID-19) RNA MUSA+probe Ql (Unsp spec) [facility] MCHC Auto (RBC) [Mass/Vol]Or dered By: Joel Tong on 05-28-2023 MCHC (RBC) [Mass/Vol] 32.2 g/dL 32-36 [facility] Mucus LM Ql (Urine sed)Order ed By: Joel Tong on 05-28-2023 Mucus Ql (Urine sed) 0 SEEN /hpf [facility] Nitrite Test strip Ql (U)Ord ered By: Joel Tong on 05-28-2023 Nitrite Ql (U) Negative Negative [facility] No Panel InformationOrdered By: Joel Tong on 05-28-2023 Estimated Creatinine Clearance Calc 56.95 ml/min [facility] Estimated GFR (MDRD) Amer 144 mL/min >60 [facility] Comment on above: GFR Calc Estimated GFR (MDRD) Non-Af Amer 119 mL/min >60 [facility] Comment on above: Non- GFR Calc Troponin I High Sensitivity 13 pg/mL 3.0-78.0 [facility] Comment on above: Please Note: New Tania t Units and Gender Specific Reference Ranges. For more information see Policy Stat Procedure [place] High Sensitivity Troponin (TNIH) and attachments. Platelets bldOrdered By: Roland Tong on 05-28-2023 Platelets (Bld) [#/Vol] 190 10*3/uL 150-450 [facility] Protein Test strip Ql (U)Ord ered By: Joel Tong on 05-28-2023 Protein Ql (U) Negative Negative [facility] Serum or plasma albumin connie urement (mass/volume)Ordered By: Joel Tong on 05-28-2023 Albumin [Mass/Vol] 3.3 g/dL 3.2-5.0 [facility] Serum or plasma albumin/glob ulin mass ratioOrdered By: Joel Tong on 05-28-2023 Albumin/Globulin [Mass ratio] 0.8 {ratio} 0.9-2.4 [facility] Serum or plasma calcium connie urement (mass/volume)Ordered By: Joel Tong on 05-28-2023 Calcium [Mass/Vol] 10.2 mg/dL 8.5-10.1 [facility] Serum or plasma creatinine m easurement (mass/volume)Ordered By: Joel Tong on 05-28-2023 Creatinine [Mass/Vol] 0.68 mg/dL 0.70-1.30 [facility] Comment on above: The validity of the calculated GFR & GFRAA in patients over 70 years has not been determined. Clinical correlation is essential. Serum or plasma urea nitroge n measurement (mass/volume)Ordered By: Joel Tong on 05-28-2023 Urea nitrogen [Mass/Vol] 36 mg/dL 7-18 [facility] Squamous epithelial cells de tection in urine sediment by light microscopyOrdered By: Joel Tong on 05-28-2023 Epithelial cells.squamous LM Ql (Urine sed) 0 SEEN /hpf 0-5 [facility] Thin prep Papanicolaou smear with manual screeningOrdered By: Joel Tong on 05-28-2023 Thin prep Papanicolaou smear with manual screening 11 U/L 15-37 [facility] Thin prep Papanicolaou smear with manual screening 7 5-15 [facility] Urine blood detectionOrdered By: Joel Tong on 05-28-2023 RBC Ql (U) Negative Negative [facility] RBC Ql (U) 0 SEEN /hpf 0-5 [facility] Urine clarityOrdered By: Roland Tong on 05-28-2023 Clarity (U) Clear Clear [facility] Urine color determinationOrd ered By: Joel Tong on 05-28-2023 Color (U) Yellow Yellow [facility] Urine glucose detectionOrder ed By: Joel Tong on 05-28-2023 Glucose Ql (U) Normal mg/dl Normal [facility] Urine leukocyte esterase det ection by dipstickOrdered By: Joel Tong on 05-28-2023 Leukocyte esterase Test strip Ql (U) Negative Negative [facility] Urine pHOrdered By: Joel arita on 05-28-2023 pH (U) 6.5 [pH] 5.0 - 8.0 [facility] Urine sediment bacteria coun t by microscopy (number/high power field)Ordered By: Joel Tong on 05-28-2023 Bacteria LM.HPF (Urine sed) [#/Area] 0 /[HPF] None Seen [facility] Urine specific gravity measu rementOrdered By: Joel Tong on 05-28-2023 Specific gravity (U) [Rel density] 1.015 1.002-1.03 0 [facility] Urobilinogen Auto test strip Ql (U)Ordered By: Joel Tong on 05-28-2023 Urobilinogen Ql (U) Normal mg/dl Normal [facility] Absolute lymphocyte countOrd ered By: Dr. Perez on 09-26-2022 Lymphocytes Auto (Unsp spec) [#/Vol] 1.37 10*3/uL 0.83-4.51 [facility] Basophil percentageOrdered B y: Dr. Perez on 09-26-2022 Basophils/100 WBC (Bld) 0.5 % 0-1 [facility] Bilirubin [Mass/Vol] 0.40 mg/dL 0.20-1.[address] [facility] Comment on above: For patients on eltr ombopag therapy, use of Dimension [place] TBIL is not recommended. Chloride [Moles/Vol] 106 mmol/L 98-[address] [facility] Cholesterol [Mass/Vol] 167 mg/dL <200 [facility] Comment on above: <200 mg/dL Desirable 200-240 mg/dL Borderline >240 mg/dL High Risk Eosinophils/100 WBC (Bld) 2.4 % 0-5 [facility] Glucose [Mass/Vol] 150 mg/dL 74-106 [facility] Comment on above: Fasting Glucose resu lt greater than or equal to 126 mg/dL suggests DIABETES MELLITUS per A.D.A. criteria. Neutrophils (Bld) [#/Vol] 3.3 10*3/uL 2.0-7.7 [facility] Neutrophils/100 WBC (Bld) 61.0 % 47-70 [facility] Potassium [Moles/Vol] 3.9 mmol/L 3.5-5.1 [facility] Protein [Mass/Vol] 8.3 g/dL 6.4-8.2 [facility] Sodium [Moles/Vol] 140 mmol/L 136-145 [facility] Triglyceride [Mass/Vol] 81 mg/dL <199 [facility] Comment on above: The drugs N-Acetylcy steine and Metamizole may falsely depress this assay.Serum Triglycerides Reference Interval Normal <150 mg/dL Borderline high 150 - 199 mg/dL High 200 - 499 mg/dL Very High > or = 500 mg/dL WBC (Bld) [#/Vol] 5.5 10*3/uL 4.4-11.0 [facility] Blood erythrocytes count (nu mber/volume)Ordered By: Dr. Perez on 09-26-2022 RBC (Bld) [#/Vol] 3.90 10*6/uL 4.6-6.2 [facility] Blood hemoglobin measurement (mass/volume)Ordered By: Dr. Perez on 09-26-2022 Hemoglobin (Bld) [Mass/Vol] 12.4 g/dL 13.0-16.5 [facility] Blood lymphocytes/100 leukoc ytesOrdered By: Dr. Perez on 09-26-2022 Lymphocytes/100 WBC (Bld) 25.1 % 19-41 [facility] Blood monocytes/100 leukocyt esOrdered By: Dr. Perez on 09-26-2022 Monocytes/100 WBC (Bld) 10.8 % 0-10 [facility] Blood platelet mean volumeOr dered By: Dr. Perez on 09-26-2022 Platelet mean volume (Bld) [Entitic vol] 9.6 fL 6.2-12.0 [facility] Determination of erythrocyte mean corpuscular volume (MCV)Ordered By: Dr. Perez on 09-26-2022 MCV (RBC) [Entitic vol] 96.9 fL 80-94 [facility] Hematocrit Auto (Bld) [Volum e fraction]Ordered By: Dr. Perez on 09-26-2022 Hematocrit (Bld) [Volume fraction] 37.8 % 40-54 [facility] Laboratory - Chemistry and C hemistry - challengeOrdered By: Dr. Perez on 09-26-2022 ALP [Catalytic activity/Vol] 205 U/L 45-117 [facility] ALT [Catalytic activity/Vol] 18 U/L 16-61 [facility] CO2 [Moles/Vol] 24.0 mmol/L 21.0-32.0 [facility] Globulin (S) [Mass/Vol] 4.9 g/dL 2.2-4.2 [facility] Urea nitrogen/Creatinine [Mass ratio] 33.4 mg/mg 10-20 [facility] Laboratory - Hematology and Cell countsOrdered By: Dr. Perez on 09-26-2022 Erythrocyte distribution width (RBC) [Entitic vol] 51.3 fL 35.1-43.9 [facility] Erythrocyte distribution width (RBC) [Ratio] 14.3 % 11.6-14.6 [facility] Immature granulocytes/100 WBC (Bld) 0.200 % 0.0-0.9 [facility] Comment on above: IG% - Immature Granu locytes (promyelocytes, myelocytes and metamyelocytes) > 1% indicates that a LEFT SHIFT is Present. MCH (RBC) [Entitic mass] 31.8 pg 27.0-32.0 [facility] Nucleated RBC/100 WBC (Bld) [Ratio] 0 % 0-5 [facility] MCHC Auto (RBC) [Mass/Vol]Or dered By: Dr. Perez on 09-26-2022 MCHC (RBC) [Mass/Vol] 32.8 g/dL 32-36 [facility] No Panel InformationOrdered By: Dr. Perez on 09-26-2022 CA 19-9 Antigen 19 U/mL 0-35 [facility] Comment on above: [facility] El ectrochemiluminescence Immunoassay(ECLIA)Values obtained with different assay methods or kits cannotbe used interchangeably. Results cannot be interpreted asabsolute evidence of the presence or absence of malignantdisease. CA 19-9 Antigen Serial Monitoring Not Reportable [facility] Estimated GFR (MDRD) Amer 135 mL/min >60 [facility] Comment on above: GFR Calc Estimated GFR (MDRD) Non-Af Amer 111 mL/min >60 [facility] Comment on above: Non- GFR Calc Thyroid Stimulating Hormone (TSH) 3.03 uIU/mL 0.358-3.74 [facility] Vitamin D 25-Hydroxy 37.9 ng/mL [facility] Comment on above: Vitamin D 25(OH) Sta tus Range Deficiency <20 ng/mL (50nmol/L) Insufficiency 20 - 30 ng/mL (50 - 75 nmol/L) Sufficiency 30 - 100 ng/mL (75 - 250 nmol/L) Toxicity >100 ng/mL (>250 nmol/L) Platelets bldOrdered By: Dr. Perez on 09-26-2022 Platelets (Bld) [#/Vol] 188 10*3/uL 150-450 [facility] Serum or plasma albumin connie urement (mass/volume)Ordered By: Dr. Perez on 09-26-2022 Albumin [Mass/Vol] 3.4 g/dL 3.2-5.0 [facility] Serum or plasma albumin/glob ulin mass ratioOrdered By: Dr. Perez on 09-26-2022 Albumin/Globulin [Mass ratio] 0.7 {ratio} 0.9-2.4 [facility] Serum or plasma calcium connie urement (mass/volume)Ordered By: Dr. Perez on 09-26-2022 Calcium [Mass/Vol] 9.5 mg/dL 8.5-10.1 [facility] Serum or plasma carcinoembry onic antigen measurement (mass/volume)Ordered By: Dr. Perez on 09-26-2022 Carcinoembryonic Ag [Mass/Vol] 2.7 ng/mL 0.0-4.7 [facility] Comment on above: Nonsmokers <3.9 Smok ers <5.6[facility] Electrochemiluminescence Immunoassay(ECLIA)Values obtained with different assay methods or kitscannot be used interchangeably. Results cannot beinterpreted as absolute evidence of the presence orabsence of malignant disease.Performed at: [address] [id number] Director: Av Gomez PhD, Phone: [phone] Serum or plasma cholesterol in HDL measurement (mass/volume)Ordered By: Dr. Perez on 09-26-2022 Cholesterol in HDL [Mass/Vol] 37 mg/dL >40 [facility] Comment on above: The drugs N-Acetylcy steine and Metamizole may falsely depress this assay. Reference Range HDL <40 mg/dL Low HDL Cholesterol HDL >or= 60 mg/dL High HDL Cholesterol Serum or plasma cholesterol in VLDL measurement (mass/volume)Ordered By: Dr. Perez on 09-26-2022 Cholesterol in VLDL [Mass/Vol] 16 mg/dL 5-40 [facility] Serum or plasma creatinine m easurement (mass/volume)Ordered By: Dr. Perez on 09-26-2022 Creatinine [Mass/Vol] 0.72 mg/dL 0.70-1.30 [facility] Comment on above: The validity of the calculated GFR & GFRAA in patients over 70 years has not been determined. Clinical correlation is essential. Serum or plasma low density lipoprotein (LDL) cholesterol measurement (mass/volume)Ordered By: Dr. Perez on 09-26-2022 Cholesterol in LDL [Mass/Vol] 114 mg/dL 0-130 [facility] Serum or plasma urea nitroge n measurement (mass/volume)Ordered By: Dr. Perez on 09-26-2022 Urea nitrogen [Mass/Vol] 24 mg/dL 7-18 [facility] Thin prep Papanicolaou smear with manual screeningOrdered By: Dr. Perez on 09-26-2022 Thin prep Papanicolaou smear with manual screening 14 U/L 15-37 [facility] Thin prep Papanicolaou smear with manual screening 10 5-15 [facility] Absolute lymphocyte counton 02-14-2022 Lymphocytes Auto (Unsp spec) [#/Vol] 1.33 10*3/uL 0.83-4.51 [facility] Work Phone: Basophil percentageon 2021 Basophil percentage 6.7 AI 0.0-0.9 [facility] Work Phone: Basophil percentage < 0.2 AI 0.0-0.9 [facility] Work Phone: Comment on above: Performed at: - [employer] [id number] Director: Av Gomez PhD, Phone: [phone] Basophils/100 WBC (Bld) 0.7 % 0-1 [facility] Work Phone: Bilirubin [Mass/Vol] 0.40 mg/dL 0.20-1.[address] [facility] Work Phone: Comment on above: For patients on eltr ombopag therapy, use of Dimension [place] TBIL is not recommended. Chloride [Moles/Vol] 105 mmol/L 98-107 [facility] Work Phone: [phone] Cholesterol [Mass/Vol] 174 mg/dL <200 [facility] Work Phone: [phone] Comment on above: <200 mg/dL Desirable 200-240 mg/dL Borderline >240 mg/dL High Risk Eosinophils/100 WBC (Bld) 2.4 % 0-5 [facility] Work Phone: [phone] Glucose [Mass/Vol] 153 mg/dL 74-106 [facility] Work Phone: [phone] Comment on above: Fasting Glucose resu lt greater than or equal to 126 mg/dL suggests DIABETES MELLITUS per A.D.A. criteria. Neutrophils (Bld) [#/Vol] 2.7 10*3/uL 2.0-7.7 [facility] Work Phone: [phone] Neutrophils/100 WBC (Bld) 58.8 % 47-70 [facility] Work Phone: Potassium [Moles/Vol] 4.1 mmol/L 3.5-5.1 [facility] Work Phone: Protein [Mass/Vol] 8.6 g/dL 6.4-8.2 [facility] Work Phone: [phone] Sodium [Moles/Vol] 139 mmol/L 136-145 [facility] Work Phone: [phone] Triglyceride [Mass/Vol] 59 mg/dL <199 [facility] Work Phone: [phone] Comment on above: The drugs N-Acetylcy steine and Metamizole may falsely depress this assay.Serum Triglycerides Reference Interval Normal <150 mg/dL Borderline high 150 - 199 mg/dL High 200 - 499 mg/dL Very High > or = 500 mg/dL WBC (Bld) [#/Vol] 4.5 10*3/uL 4.4-11.0 [facility] Work Phone: [phone] Blood erythrocytes count (nu mber/volume)on 02-14-2022 RBC (Bld) [#/Vol] 4.31 10*6/uL 4.6-6.2 [facility] Work Phone: [phone] Blood hemoglobin measurement (mass/volume)on 02-14-2022 Hemoglobin (Bld) [Mass/Vol] 13.4 g/dL 13.0-16.5 [facility] Work Phone: Blood lymphocytes/100 leukoc yteson 02-14-2022 Lymphocytes/100 WBC (Bld) 29.5 % 19-41 [facility] Work Phone: Blood monocytes/100 leukocyt eson 02-14-2022 Monocytes/100 WBC (Bld) 8.4 % 0-10 [facility] Work Phone: [phone] Blood platelet mean volumeon 02-14-2022 Platelet mean volume (Bld) [Entitic vol] 9.9 fL 6.2-12.0 [facility] Work Phone: Determination of erythrocyte mean corpuscular volume (MCV)on 02-14-2022 MCV (RBC) [Entitic vol] 94.4 fL 80-94 [facility] Work Phone: [phone] Hematocrit Auto (Bld) [Volum e fraction]on 02-14-2022 Hematocrit (Bld) [Volume fraction] 40.7 % 40-54 [facility] Work Phone: Laboratory - Chemistry and C hemistry - challengeon 02-14-2022 ALP [Catalytic activity/Vol] 252 U/L 45-117 [facility] Work Phone: ALT [Catalytic activity/Vol] 24 U/L 16-61 [facility] Work Phone: CO2 [Moles/Vol] 24.0 mmol/L 21.0-32.0 [facility] Work Phone: [phone] Globulin (S) [Mass/Vol] 5.0 g/dL 2.2-4.2 [facility] Work Phone: [phone] Urea nitrogen/Creatinine [Mass ratio] 47.2 mg/mg 10-20 [facility] Work Phone: Laboratory - Hematology and Cell countson 02-14-2022 Erythrocyte distribution width (RBC) [Entitic vol] 49.9 fL 35.1-43.9 [facility] Work Phone: Erythrocyte distribution width (RBC) [Ratio] 14.3 % 11.6-14.6 [facility] Work Phone: Immature granulocytes/100 WBC (Bld) 0.200 % 0.0-0.9 [facility] Work Phone: Comment on above: IG% - Immature Granu locytes (promyelocytes, myelocytes and metamyelocytes) > 1% indicates that a LEFT SHIFT is Present. MCH (RBC) [Entitic mass] 31.1 pg 27.0-32.0 [facility] Work Phone: Nucleated RBC/100 WBC (Bld) [Ratio] 0 % 0-5 [facility] Work Phone: MCHC Auto (RBC) [Mass/Vol]on 02-14-2022 MCHC (RBC) [Mass/Vol] 32.9 g/dL 32-36 [facility] Work Phone: No Panel Informationon 02-14 Estimated GFR (MDRD) Amer 111 mL/min >60 [facility] Work Phone: Comment on above: GFR Calc Estimated GFR (MDRD) Non-Af Amer 92 mL/min >60 [facility] Work Phone: Comment on above: Non- GFR Calc Thyroid Stimulating Hormone (TSH) 1.59 uIU/mL 0.358-3.74 [facility] Work Phone: Urine Microalbumin/Creatinine Ratio 34.5 mg/g CRE <30 [facility] Work Phone: Platelets bldon 02-14-2022 Platelets (Bld) [#/Vol] 213 10*3/uL 150-450 [facility] Work Phone: Serum or plasma C reactive p rotein measurement (mass/volume)on 02-14-2022 CRP [Mass/Vol] 18.60 mg/L 0.0-3.0 [facility] Work Phone: Comment on above: C-Reactive Protein ( CRP) provides useful information for thediagnosis, therapy and monitoring of inflammatory processesand associated diseases. For the evaluation of Relative Riskfor Cardiovascular Disease, a High Sensitivity CRP (HSCRP)should be ordered. Serum or plasma albumin connie urement (mass/volume)on 02-14-2022 Albumin [Mass/Vol] 3.6 g/dL 3.2-5.0 [facility] Work Phone: Serum or plasma albumin/glob ulin mass ratioon 02-14-2022 Albumin/Globulin [Mass ratio] 0.7 {ratio} 0.9-2.4 [facility] Work Phone: Serum or plasma calcium connie urement (mass/volume)on 02-14-2022 Calcium [Mass/Vol] 9.5 mg/dL 8.5-10.1 [facility] Work Phone: Serum or plasma cholesterol in HDL measurement (mass/volume)on 02-14-2022 Cholesterol in HDL [Mass/Vol] 39 mg/dL >40 [facility] Work Phone: Comment on above: The drugs N-Acetylcy steine and Metamizole may falsely depress this assay. Reference Range HDL <40 mg/dL Low HDL Cholesterol HDL >or= 60 mg/dL High HDL Cholesterol Serum or plasma cholesterol in VLDL measurement (mass/volume)on 02-14-2022 Cholesterol in VLDL [Mass/Vol] 12 mg/dL 5-40 [facility] Work Phone: Serum or plasma creatinine m easurement (mass/volume)on 02-14-2022 Creatinine [Mass/Vol] 0.85 mg/dL 0.70-1.30 [facility] Work Phone: Comment on above: The validity of the calculated GFR & GFRAA in patients over 70 years has not been determined. Clinical correlation is essential. Serum or plasma low density lipoprotein (LDL) cholesterol measurement (mass/volume)on 02-14-2022 Cholesterol in LDL [Mass/Vol] 123 mg/dL 0-130 [facility] Work Phone: Serum or plasma urea nitroge n measurement (mass/volume)on 02-14-2022 Urea nitrogen [Mass/Vol] 40 mg/dL 7-18 [facility] Work Phone: Thin prep Papanicolaou smear with manual screeningon 02-14-2022 Thin prep Papanicolaou smear with manual screening 16 U/L 15-37 [facility] Work Phone: Thin prep Papanicolaou smear with manual screening 10 5-15 [facility] Work Phone: Thin prep Papanicolaou smear with manual screening 11.2 mg/L NO RANGE EST. [facility] Work Phone: Urine creatinine measurement (mass/volume)on 02-14-2022 Creatinine (U) [Mass/Vol] 32.50 mg/dL NO RANGE EST. [facility] Work Phone: Absolute lymphocyte counton 08-22-2021 Lymphocytes Auto (Unsp spec) [#/Vol] 1.34 10*3/uL 0.83-4.51 [facility] Work Phone: Basophil percentageon 2021 Basophils/100 WBC (Bld) 0.7 % 0-1 [facility] Work Phone: Bilirubin [Mass/Vol] 0.30 mg/dL 0.20-1.[address] [facility] Work Phone: Comment on above: For patients on eltr ombopag therapy, use of Dimension [place] TBIL is not recommended. Chloride [Moles/Vol] 105 mmol/L 98-[address] [facility] Work Phone: Cholesterol [Mass/Vol] 179 mg/dL <200 [facility] Work Phone: Comment on above: <200 mg/dL Desirable 200-240 mg/dL Borderline >240 mg/dL High Risk Eosinophils/100 WBC (Bld) 2.2 % 0-5 [facility] Work Phone: Glucose [Mass/Vol] 142 mg/dL 74-106 [facility] Work Phone: Comment on above: Fasting Glucose resu lt greater than or equal to 126 mg/dL suggests DIABETES MELLITUS per A.D.A. criteria. Neutrophils (Bld) [#/Vol] 2.2 10*3/uL 2.0-7.7 [facility] Work Phone: [phone] Neutrophils/100 WBC (Bld) 52.9 % 47-70 [facility] Work Phone: [phone] Potassium [Moles/Vol] 3.9 mmol/L 3.5-5.1 [facility] Work Phone: [phone] Protein [Mass/Vol] 8.3 g/dL 6.4-8.2 [facility] Work Phone: [phone] Sodium [Moles/Vol] 138 mmol/L 136-145 [facility] Work Phone: Triglyceride [Mass/Vol] 68 mg/dL [facility] Work Phone: Comment on above: The drugs N-Acetylcy steine and Metamizole may falsely depress this assay.Serum Triglycerides Reference Interval Normal <150 mg/dL Borderline high 150 - 199 mg/dL High 200 - 499 mg/dL Very High > or = 500 mg/dL WBC (Bld) [#/Vol] 4.1 10*3/uL 4.4-11.0 [facility] Work Phone: Blood erythrocytes count (nu mber/volume)on 08-22-2021 RBC (Bld) [#/Vol] 4.36 10*6/uL 4.6-6.2 [facility] Work Phone: [phone] Blood hemoglobin measurement (mass/volume)on 08-22-2021 Hemoglobin (Bld) [Mass/Vol] 13.3 g/dL 13.0-16.5 [facility] Work Phone: [phone] Blood lymphocytes/100 leukoc yteson 08-22-2021 Lymphocytes/100 WBC (Bld) 32.4 % 19-41 [facility] Work Phone: Blood monocytes/100 leukocyt eson 08-22-2021 Monocytes/100 WBC (Bld) 11.6 % 0-10 [facility] Work Phone: [phone] Blood platelet mean volumeon 08-22-2021 Platelet mean volume (Bld) [Entitic vol] 9.8 fL 6.2-12.0 [facility] Work Phone: [phone] Determination of erythrocyte mean corpuscular volume (MCV)on 08-22-2021 MCV (RBC) [Entitic vol] 94.0 fL 80-94 [facility] Work Phone: Hematocrit Auto (Bld) [Volum e fraction]on 08-22-2021 Hematocrit (Bld) [Volume fraction] 41.0 % 40-54 [facility] Work Phone: [phone] Laboratory - Chemistry and C hemistry - challengeon 08-22-2021 ALP [Catalytic activity/Vol] 245 U/L 45-117 [facility] Work Phone: ALT [Catalytic activity/Vol] 26 U/L 16-61 [facility] Work Phone: CO2 [Moles/Vol] 27.0 mmol/L 21.0-32.0 [facility] Work Phone: [phone] Globulin (S) [Mass/Vol] 4.6 g/dL 2.2-4.2 [facility] Work Phone: [phone] Urea nitrogen/Creatinine [Mass ratio] 39.9 mg/mg 10-20 [facility] Work Phone: Laboratory - Hematology and Cell countson 08-22-2021 Erythrocyte distribution width (RBC) [Entitic vol] 45.1 fL 35.1-43.9 [facility] Work Phone: [phone] Erythrocyte distribution width (RBC) [Ratio] 13.2 % 11.6-14.6 [facility] Work Phone: Immature granulocytes/100 WBC (Bld) 0.200 % 0.0-0.9 [facility] Work Phone: [phone] Comment on above: IG% - Immature Granu locytes (promyelocytes, myelocytes and metamyelocytes) > 1% indicates that a LEFT SHIFT is Present. MCH (RBC) [Entitic mass] 30.5 pg 27.0-32.0 [facility] Work Phone: Nucleated RBC/100 WBC (Bld) [Ratio] 0 % 0-5 [facility] Work Phone: MCHC Auto (RBC) [Mass/Vol]on 08-22-2021 MCHC (RBC) [Mass/Vol] 32.4 g/dL 32-36 [facility] Work Phone: No Panel Informationon 08-22 Estimated GFR (MDRD) Amer 151 mL/min >60 [facility] Work Phone: Comment on above: GFR Calc Estimated GFR (MDRD) Non-Af Amer 125 mL/min >60 [facility] Work Phone: Comment on above: Non- GFR Calc Platelets bldon 08-22-2021 Platelets (Bld) [#/Vol] 215 10*3/uL 150-450 [facility] Work Phone: Serum or plasma albumin connie urement (mass/volume)on 08-22-2021 Albumin [Mass/Vol] 3.7 g/dL 3.2-5.0 [facility] Work Phone: Serum or plasma albumin/glob ulin mass ratioon 08-22-2021 Albumin/Globulin [Mass ratio] 0.8 {ratio} 0.9-2.4 [facility] Work Phone: Serum or plasma calcium connie urement (mass/volume)on 08-22-2021 Calcium [Mass/Vol] 9.5 mg/dL 8.5-10.1 [facility] Work Phone: Serum or plasma cholesterol in HDL measurement (mass/volume)on 08-22-2021 Cholesterol in HDL [Mass/Vol] 40 mg/dL [facility] Work Phone: Comment on above: The drugs N-Acetylcy steine and Metamizole may falsely depress this assay. Reference Range HDL <40 mg/dL Low HDL Cholesterol HDL >or= 60 mg/dL High HDL Cholesterol Serum or plasma cholesterol in VLDL measurement (mass/volume)on 08-22-2021 Cholesterol in VLDL [Mass/Vol] 14 mg/dL 5-40 [facility] Work Phone: Serum or plasma creatinine m easurement (mass/volume)on 08-22-2021 Creatinine [Mass/Vol] 0.65 mg/dL 0.70-1.30 [facility] Work Phone: Comment on above: The validity of the calculated GFR & GFRAA in patients over 70 years has not been determined. Clinical correlation is essential. Serum or plasma low density lipoprotein (LDL) cholesterol measurement (mass/volume)on 08-22-2021 Cholesterol in LDL [Mass/Vol] 125 mg/dL 0-130 [facility] Work Phone: Serum or plasma urea nitroge n measurement (mass/volume)on 08-22-2021 Urea nitrogen [Mass/Vol] 26 mg/dL 7-18 [facility] Work Phone: Serum rheumatoid factor dete ctionon 08-22-2021 Rheumatoid factor Ql (S) < 10.0 IU/mL <15 [facility] Work Phone: Thin prep Papanicolaou smear with manual screeningon 08-22-2021 Thin prep Papanicolaou smear with manual screening 18 U/L 15-37 [facility] Work Phone: Thin prep Papanicolaou smear with manual screening 6 5-15 [facility] Work Phone: Whole blood hemoglobin A1c/t otal hemoglobin ratio (mass fraction)on 08-22-2021 HbA1c (Bld) [Mass fraction] 6.9 % 3.8-5.6 [facility] Work Phone: Comment on above: Normal < 5.7 % Predi abetic 5.7 - 6.4 % Diabetic >or= 6.5 % Please note range changes. Vital Signs Date Time Vital Sign Value Performing Clinician Faci lity 05-29-2023 03:06-0500 Diastolic blood pressure 84 mm[Hg] [facility] 05-29-2023 03:06-0500 Heart rate 85 /min [facility] 05-29-2023 03:06-0500 Respiratory rate 18 /min [facility] 05-29-2023 03:06-0500 SaO2% (BldA) [Mass fraction] 96 % [facility] 05-29-2023 03:06-0500 Systolic blood pressure 164 mm[Hg] [facility] 05-28-2023 21:10-0500 Body height 175.26 cm [facility] 05-28-2023 21:10-0500 Body mass index (BMI) [Ratio] 27.4 kg/m2 [facility] 05-28-2023 21:10-0500 Body temperature 97.3 [degF] [facility] 05-28-2023 21:10-0500 Body weight 84.3 kg [facility] Encounters Encounter Date Encounter Type Care Provider Facility Start: 03-31-2025 End: 04-01-2025 Emergency department patient visit Lynn Ledezma Facility:[facility] Start: 03-31-2025 End: 03-31-2025 ambulatory LYNN LEDEZMA Facility:[facility] Start: 08-14-2023 End: 08-14-2023 ambulatory [facility] Work Phone: Start: 08-14-2023 End: 08-14-2023 Patient encounter procedure [facility] Work Phone: Start: 08-10-2023 End: 08-10-2023 ambulatory [facility] Work Phone: Start: 08-10-2023 End: 08-10-2023 Patient encounter procedure [facility] Start: 05-28-2023 End: 05-29-2023 Emergency department patient visit [facility] Work Phone: Start: 09-26-2022 End: 09-26-2022 ambulatory [facility] Work Phone: Start: 09-26-2022 End: 09-26-2022 Patient encounter procedure [facility] Start: 02-14-2022 End: 02-14-2022 ambulatory [facility] Work Phone: Start: 02-14-2022 End: 02-14-2022 [facility] Start: 08-22-2021 End: 08-22-2021 [facility] Procedures Date Procedure Procedure Detail Performing Clinician Start: 05-28-2023 Plain chest X-ray Start: 05-28-2023 SARS-CoV-2, Influenz a & RSV (PCR) Plan of Treatment Date Care Activity Detail Author Start: 05-29-2023 [facility] Albumin/Globulin [Ma ss Ratio] in Serum or Plasma by Electrophoresis [facility] Electrophoresis: albumin [facility] Electrophoresis: [id number] [facility] Electrophoresis: [id number] [facility] Electrophoresis: gamma globulin [facility] Globulin measurement [facility] Microscopic urinalysis [facility] Organism count, micr oscopic method [facility] Patient referral [facility] Work Phone: Protein electrophore sis panel - Serum or Plasma [facility] Serum protein electrophoresis [facility] Total globulins measurement [facility] Urinalysis, blood, qualitative [facility] Urine microscopy: ep ithelial cells [facility] White blood cell count [facility] Immunizations Immunization Date Immunization Notes Care Provider Santosh bagley 04-06-2017 Influenza virus vaccine [facility] 11-28-2015 pneumococcal polysaccharide vaccine, 23 valent [facility] 10-04-2014 pneumococcal conjuga te vaccine, 13 valent [facility] Payers Date Payer Category Payer Self-pay [id number] 2019 Medicare [id number] 2005 Medicare [id number] Unknown [id number] Social History Date Type Detail Facility Start: 03-25-2018 End: 05-28-2023 Tobacco smoking status NHIS Unknown if ever smoked [facility] Start: 09-21-2017 None [facility] Start: 09-21-2017 Spouse/ Signif icant Other [facility] Start: 09-23-2017 Non-smoker [facility] Start: 1940 Sex Assigned At Male [facility] Mental Status Date Assessment Result Facility 05-28-2023 Cognitive function Level Of Cons ciousness Awake;Alert;Appropriate;Follow s Commands [facility] Work Phone: Progress note 03-31-2025 Note Date & Type Note Facility 03-31-2025 Note HNO ID: [id number] Author: LYNN LEDEZMA MD Service: ? Author Type: Physician Type: Progress Notes Filed: 03/31/2025 15:17 Note Text: Family Medicine OUTPATIENT VISIT March 31, 2025 CC: Leg wound HPI: 84 year old male patient with a history of HTN Coreg, lisinopril, indapamide HLD T2DM Cholangiocarcinoma Gout on allopurinol Psoriasis OA BPH Last note in system was with oncology for cholangiocarinoma. Plan was as follows 1. 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 - No concerning findings on exam. - Reviewed CBC with pt. - CMP pending. - CT's yearly until 5 years out-due September 2020. - CT's due in September 2021. - Follow up in 6 months with CBC/CMP. - Pt. aware to call office with any questions/concerns. Patient presents with his son today. Presenting with right ankle wound. Patient stating it is fine and unable to describe now long it has been there for. Patient is not bothered by this wound, and does not wish to discuss it initially. He denies fever, chills, shortness of breath. Denies other wounds. He denies pain. He is diabetic, but insistent he is only a little diabetic since he takes only 4 or 5 units of insulin. He has no complaints, stating he is here today to get medication refills. Review of Systems PAIN ASSESSMENT: Negative for pain, history of chronic pain, or current treatment for a chronic pain condition. GENERAL: No weight loss, or fevers HEENT: Negative for frequent or significant headaches RESPIRATORY: Negative for cough, wheezing, shortness of breath CARDIOVASCULAR: Negative for chest pain, palpitations, PND or orthopnea GI: No nausea, vomiting, or diarrhea or abdominal pain. No WA bleeding or melana : No history of dysuria, frequency, urgency, or change in urine appearance NEURO: No history of headaches, numbness, weakness, or changes to vision or hearing Health maintenance: Depression Screening Never done Anxiety Screening Never done DTaP,Tdap,Td Vaccine(1 - Tdap) Never done Shingrix Vaccine(1 of 2) Never done Dilated Retinal Exam due on 02/29/2012 RSV Vaccine(1 - 1-dose 75+ series) Never done HbA1C due on 05/10/2016 Diabetic Foot Exam due on 11/27/2016 Urine Albumin:Creatinine Ratio due on 12/05/2016 LDL Cholesterol due on 08/06/2018 Advance Directive Discussion Never done Medicare Advantage Annual Wellness Visit Never done Influenza Vaccine(1) due on 01/23/2025 Covid-19 Vaccine( - 2024- season) Never done Allergies: ALLERGIES Allergen Reactions Atorvastatin Myalgia Lovastatin Myalgia Oxaprozin Shortness of Breath Suspected Medications: allopurinol (ZYLOPRIM) 100 mg tablet Take 100 mg by mouth once daily. indapamide (LOZOL) 2.5 mg tablet Take 1 tablet by mouth once daily. as needed for increased BP. lisinopril (ZESTRIL, PRINIVIL) 40 mg tablet Take 1 tablet by mouth once daily. (Patient taking differently: Take 40 mg by mouth twice daily. ) carvedilol (COREG) 25 mg tablet Take 0.5 tablets by mouth twice daily. (Patient taking differently: Take 25 mg by mouth twice daily. ) aspirin(ECOTRIN LOW STRENGTH 81 MG TAB) Take one(1) tablet daily. Past Medical History: PAST MEDICAL HISTORY Diagnosis Date ATHEROSCLEROSIS NOS 10/08/2005 GOUT NOS 03/05/2007 Hearing loss 02/21/2009 HYPERLIPIDEMIA NEC/NOS 01/23/2011 HYPERTENSION NOS 12/14/2002 Hypertrophy of prostate without urinary obstruction and other lower urinary tract symptoms (LUTS) 03/05/2007 Impaired fasting glucose 05/20/2010 PSORIASIS: disseminated plaques and guttate lesions 06/25/2010 Transient ischemic attack (TIA), and cerebral infarction without residual deficits(V12.54) 02/21/2009 Type II or unspecified type diabetes mellitus without mention of complication, not stated as uncontrolled 01/23/2011 Social History: SOCIAL HISTORY[1] Family History: Family History Problem Relation Age of Onset Heart Sister BP 176/89 Pulse 99 Temp 37.2 ?C (98.9 ?F) (Temporal) Resp 12 General: Awake, alert, not in acute distress 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 He is too weak to take any steps without two person assist. RESP: Clear lungs bilateral with good air entry, No increased work of breathing CVS: RRR, No murmur. Pulses 2+. GI: Abdomen is soft, non distended, non tender. Skin/Other: He has a large, approximately 5 inch irregularly bordered wound on his right lateral malleolus which is foul smelling and with weeping discharge. The entire lower extremity is edematous, more so than more mild pitting edema of the left ruiz to the knee, erythematous to his knee. No crepitus. HEENT: pupils equal Labs: Reviewed the following: Imaging: Reviewed the following: na Assessment/Plan: na ASSESSMENT/PLAN: 1. Wound of right lower extremity, initial encounter - ICD9: 894.0, ICD10: S81.801A Patient is am 84 year ol (more content not included)... [facility] Discharge summary 05-29-2023 Note Date & Type Note Facility 05-29-2023 Discharge summary Note Date/Time May 28, 2023 10:07pm [facility] Medical Records Department [address] [place] [address] Emergency Department Summary 05/28/23 MR#: [id number] Acct: [id number] Name: ENOCH ROJAS Sr. Rep #:[id number] : 1940 82 From: Joel Tong DO PCP: Dr. Andrey Perez MD Status:REG ER Location: ED HPI History of Present Illness Chief Complaint: Weakness Narrative Narrative: 82-year-old male presenting with weakness. Patient states he is not sure why. Patient states he has not been able to walk much today. He was able to get to the restroom but when he came back to the kitchen table he was unable to get up from the table. He denies any headache, nauseousness, dizziness, slurred speech, confusion. Denies chest pain, palpitations, shortness of breath. He has no cough, fever, chills. Denies urinary complaints. Patient states he justfeels generally weak. Patient states his was in the hospital couple weeks ago but he does not know when she was in here for. Patient has no complaints atthis time except for generalized weakness PFSH [facility] Medical History Acute pancreatitis BRIELLE (acute kidney injury) Anasarca Diabetes mellitus Encounter for adjustment or management of vascular access device Gallbladder carcinoma Gallstone pancreatitis Hyperglycemia Hypertension Hypokalemia Hyponatremia Protein malnutrition Psoriasis Shortness of breath Home Medications aspirin 81 mg chewable tablet 81 mg PO DAILY@0800 heart health 11/18/16 [History Last Taken 12/01/16 10:56] carvedilol 25 mg tablet 12.5 mg PO BID heart, blood pressure 11/18/16 [History Last Taken 01/29/17] sennosides 8.6 mg tablet 1 tab PO BID PRN PRN Constipation 03/09/17 [History Last Taken Unknown] lisinopril 40 mg tablet 40 mg PO DINNER htn 09/21/17 [History Last Taken Unknown] iron, carbonyl 45 mg tablet 45 mg PO DAILYCM #30 caps 09/22/17 [Rx Last Taken Unknown] insulin aspart U-100 100 unit/mL (3 mL) subcutaneous pen 5 units (0.05 mL) subcut BREAKFAST 09/23/17 [Rx Last Taken Unknown] insulin aspart U-100 100 unit/mL (3 mL) subcutaneous pen 5 units (0.05 mL) subcut DINNER 09/23/17 [Rx Last Taken Unknown] insulin aspart U-100 100 unit/mL (3 mL) subcutaneous pen 5 units (0.05 mL) subcut LUNCH 09/23/17 [Rx Last Taken Unknown] insulin detemir U-100 100 unit/mL (3 mL) subcutaneous pen 20 units (0.2 mL) subcut QHS 09/23/17 [Rx Last Taken Unknown] Allergy/AdvReac Type Severity Reaction Status Date / Time No Known Allergies Allergy Verified 05/28/23 21:18 Social History Smoking Status: Former smoker ROS ROS ED ROS Narrative Generalized weakness Constitutional Constitutional ED: Denies chills, fever(s) or sweats Eyes Eyes: Denies blurry vision or change in vision ENT ENT ED: Denies ear pain or sore throat Cardiovascular Cardiovascular: Denies chest pain, palpitations or racing heartbeat Respiratory/Chest Respiratory/Chest: Denies cough, dyspnea or sputum Gastrointestinal Gastrointestinal: Denies abdominal pain, constipation, diarrhea, nausea or vomiting Genitourinary Genitourinary ED: Denies dysuria, hematuria or urinary frequency Musculoskeletal Musculoskeletal: Denies arthralgias, myalgias or neck pain Integumentary Denies abscess, Abrasions or rash Neurologic Neurologic: Denies headache(s), paresthesias or weakness Psychiatric Psychiatric: Denies anxiety, depression, suicidal ideation or suicidal thoughts Endocrine Endocrinology: Denies polydipsia or polyuria EXAM Physical Exam Const Vital Signs: 05/28/23 21:10 05/28/23 21:18 Temperature 97.3 F L Temperature Source Temporal Pulse Rate 67 Respiratory Rate 16 Respiratory Effort Normal Non-Labored Respiratory Pattern Normal Blood Pressure 173/84 H Blood Pressure Mean 113 Pulse Ox 100 Oxygen Delivery Method Room Air Positive well nourished General Appearance ED: NAD; Negative for pallor HEENT Reports moist mucous membranes Eyes PERRL and EOMs intact bilaterally Chest Wall inspection of chest normal Resp normal respiratory effort and clear to auscultation bilaterally Auscultation: Negative for rales, rhonchi or wheezes Cardio regular rate and regular rhythm GI normal to inspection, nondistended, normoactive bowel sounds Neuro oriented x3 Motor Exam: strength 5/5 throughout Psych mental status grossly normal Skin no rashes or lesions noted and no wounds General Skin Exam: Negative for jaundice or pallor MDM MDM MDM Narrative Medical decision making narrative: Presented with generalized weakness. Patient has no significant other complaints. Differential includes dehydration, anemia, dysrhythmia, electrolyteabnormalities, COVID, flu, RSV, ACS, pneumonia. IV was established. Patient was given a liter of IV fluids. CBC shows no leukocytosis with white blood count of 3.7. This is near baseline. Hemoglobin is 11.7. Platelets 190. Renal function at baseline. Electrolytes are normal. LFTs unremarkable with exception of alkaline phosphatase 197. Sensitivity troponin is 13. EKG sinus rhythm without evidence of ischemia on my interpretation. X-ray my interpretation is no acute process. The radiologist read this as atelectasis but cannot rule out infiltrate although patient does not cough. Is under percent on room air. White blood cell count is low. I do not believe he has pneumonia. Patient was ambulated in the room and did so well with a walker. Hestates this is his baseline. Discussed with him at length his options. He states that he feels well enough to go home and he has helped here. He was offered admission if he felt too weak to go home and he states he does want to go home. Patient then asked me if he knows anybody that we will do housecalls for his toenail trimming's and he does have fairly large toenails. I will referhim to podiatry. Impression: 1. Weakness 2. Dehydration Lab Data Attestation: I reviewed the patient's lab results. Labs: Laboratory Results - last 24 hr 05/28/23 05/28/23 21:46 22:00 WBC 3.7 L RBC 3.75 L Hgb 11.7 L Hct 36.3 L MCV 96.8 H MCH 31.2 MCHC 32.2 RDW Std Deviation 50.2 H RDW Coeff of Manuel 14.2 Plt Count 190 MPV 9.1 Immature Gran % (Auto) 0.300 Neut % (Auto) 53.4 Lymph % (Auto) 31.0 [place] % (Auto) 11.5 H Eos % (Auto) 3.0 Baso % (Auto) 0.8 Absolute Neuts (auto) 2.0 Absolute Lymphs (auto) 1.13 Nucleated RBC % 0 Sodium 142 Potassium 3.9 Chloride 107 Carbon Dioxide 28.0 Anion Gap 7 BUN 36 H Creatinine 0.68 L Estim Creat Clear Calc 56.95 Est GFR (MDRD) Af Amer 144 Est GFR (MDRD) Non-Af 119 BUN/Creatinine Ratio 53.0 H Glucose 131 H Calcium 10.2 H Total Bilirubin 0.30 AST 11 L ALT 15 L Alkaline Phosphatase 197 H Troponin I High Sens 13 Total Protein 7.7 Albumin 3.3 Globulin 4.4 H Albumin/Globulin Ratio 0.8 L POC Glucose 121 H Radiography Diagnostic Testing: Clinical Impression(s) from Imaging Studies Chest X-Ray 05/28/23 21:55 IMPRESSION: Thick transverse band of increased soft tissue density at the right lung base. Most likely discoid atelectasis, despite mild pulmonary hyperinflation, but cannot exclude infiltrate. Electronically Signed: Nia Edward MD at 22:15 EST , Discharge Plan Triage Chief Complaint: Weakness ED Provider: Joel Tong Dx/Rx/DC Orders Prescriptions: No Action carvedilol 25 MG tablet 12.5 mg PO BID Patient Comments: Heart health aspirin 81 MG tablet,chewable 81 mg PO DAILY@0800 sennosides 1 TABLET tablet 1 tab PO BID PRN PRN (Reason: Constipation) lisinopril 40 MG tablet 40 mg PO DINNER Patient Comments: Take 1 (one) Tablet with supper iron, carbonyl 45 MG capsule 45 mg PO DAILYCM Qty: 30 0RF insulin aspart U-100 100 UNITS/ML insulin pen 5 units subcut LUNCH 0RF insulin aspart U-100 100 UNITS/ML insulin pen 5 units subcut BREAKFAST 0RF insulin aspart U-100 100 UNITS/ML insulin pen 5 units subcut DINNER 0RF insulin detemir U-100 100 UNITS/ML insulin pen 20 units subcut QHS 0RF Primary Care Provider: Andrey Perez Referrals: Andrey Perez MD [Primary Care Provider] - What to do if you have Problems For any increased pain, shortness of breath, bleeding, nausea or vomiting, chestpain, or any unexpected problems, contact your Primary Care Provider. Call [facility] ([phone]) or report to the closest Emergency Room. Call 911 if necessary. 05/28/23 1660 <Electronically signed by Joel Tong DO> Cosigner Signature (if applicable): CC: Dr. Andrey Perez MD ~ Signed [facility] Work Phone: Evaluation note Note Date & Type Note Facility Evaluation note No assessment information availa ble [facility] Work Phone: Family History No Family History Records Found Relationship Condition Age at Onset Recorded Date/T isabela Unknown Family History?Heart Disease Unknown November 28, 2016 5:04pm Family History?Heart Disease Unknown September 21, 2017 7:14am Family History?No pertinent history Unkno wn September 21, 2017 7:14am Relationship Condition Age at Onset Recorded Date/T isabela Unknown Family History?Heart Disease Unknown November 28, 2016 4:04pm Family History?Heart Disease Unknown September 21, 2017 6:14am Family History?No pertinent history Unkno wn September 21, 2017 6:14am Advance Directives No Advanced Directives Records Found Advance Directive Response Recorded Date/ Time Living Will Yes September 21, 2017 1:40pm Power of Paper Feeder Yes September 21 1:40pm Advance Directive Response Recorded Date/ Time Living Will Yes May 28 9:16pm Power of Paper Feeder Yes May 28 024 9:16pm Name of Medical Power of Paper Feeder Enoch Echeverria May 28, 2023 9:16pm Advance Directive Response Recorded Date/ Time Living Will Yes May 28 10:16pm Power of Paper Feeder Yes May 28 024 10:16pm Name of Medical Power of Paper Feeder Enoch Echeverria May 28, 2023 10:16pm Chief Complaint and Reason for Visit Chief Complaint weakness Chief Complaint weakness 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 Andrey Perez MD Family Provider Active Dr. Andrey Perez MD Primary Care Provider Active Team Status: Inactive Member Role Status Dates Dr. Andrey Perez MD Primary Care Provider, Attending Gregory moran Active Team Status: Inactive Member Role Status Dates Dr. Andrey Perez MD Primary Care Provider Active Dr. Joel Tong DO Emergency Provider Active Team Status: Inactive Member Role Status Dates Dr. Andrey Perez MD Primary Care Provider Active Dr. Joel Tong DO Attending Provider, Emergency Provider Active Team Status: Active Member Role Status Dates Dr. Andrey Perez MD Primary Care Provide r, Attending Provider, Referring Provider Active Team Status: Inactive Member Role Status Dates Dr. Andrey Perez MD Primary Care Provide r, Attending Provider, Referring Provider Active (unrecognized sect ion and content) No Status Records FoundNo Status Records Found INFORMATION SOURCE (unrecogn ized section and content) DATE CREATED AUTHOR 04/05/2025 [facility] DATE CREATED AUTHOR AUTHOR'S RIGOBERTOIZ ATANA 04/05/2025 [facility] FOR RECORDS PERTAINING TO PATIENTS WHO ARE [...] BE BASED ON THE PRIMARY CLINICAL RECORDS. [employer] provides no warranty or guarantee of the accuracy or completeness of information in this document.
[2025-04-21 15:57] LABS: Anion Gap 10 (5-15); BUN 28 mg/dL (4-19); BUN/Creat Ratio 47.9 RATIO (10-20); Calcium,Total 10.0 mg/dL (7.6-11.0); Carbon Dioxide 25.7 mmol/L (21.0-32.0); Chloride 103 mmol/L (98-108); Estimated Creatinine Clearance 71.94 ml/min (50-250); Glucose 134 mg/dL (70-99); Potassium 4.0 mmol/L (3.3-5.1)
[2025-04-21 16:17] VITALS: BP 157/83; PULSE 78; RESP 16; TEMP 36.5; O2SAT 98
[2025-04-21 18:00] VITALS: BP 173/92; PULSE 88; RESP 14; O2SAT 95
== END 2025-04-21 18:39 | disposition home or self-care (01) ==
PROVIDERS: Emergency Provider Emergency Medicine; PCP Pediatrics; Visit Provider Emergency Medicine
DX: L89.892 Pressure ulcer of other site, stage 2 (principal); L89.512 Pressure ulcer of right ankle, stage 2; E10.65 Type 1 diabetes mellitus with hyperglycemia; E10.51 Type 1 diabetes mellitus with diabetic peripheral angiopathy without gangrene; Z79.4 Long term (current) use of insulin; Z87.891 Personal history of nicotine dependence; I10 Essential (primary) hypertension; D53.9 Nutritional anemia, unspecified; I89.0 Lymphedema, not elsewhere classified; R79.89 Other specified abnormal findings of blood chemistry
CPT/HCPCS: 73630; 80048; 85025; 99284; A4216